=== PATIENT | female | born 1935 | race Caucasian/White ===

== ENCOUNTER 2016-06-18 14:39 | Inpatient (IN) | payer BC, OTHER ==
[~2016-06-18] VITALS: Ht 152.4 cm; Wt 68.1 kg
[~2016-06-18 14:39] MED LIST: ALBUAER2 INH; ALEN70TA4 PO; AMLO-110 PO; ASPCH81X PO; CLIN300C10 PO; FLUT115A INH; GABA-113 PO; LEVO125T7 PO; METF500T PO; METR-162 PO; NAPR-1169 PO; OXYC-57 PO; PRLSR20 PO; SITA100T3 PO
[2016-06-18 16:23] LABS: BASO % 0.4 %; BASO ABS # 0.04 K/uL (0-0.2); COMPLETE YES; EOS % 3.4 %; HEMATOCRIT 39.2 % (37-47); IG% 0.2 %; LYMPH % 16.8 %; LYMPH ABS # 1.85 K/uL (1.2-3.4); MEAN CORPUSCULAR HEMOGLOBIN 32.3 pg (25-34); MEAN CORPUSCULAR HGB CONC 32.9 g/dl (32-36); MEAN PLATELET VOLUME 11.4 fL (7.4-10.4); MONO % 7.2 %; PLATELET COUNT 198 K/uL (130-400); WHITE BLOOD COUNT 10.99 K/uL (4.8-10.8)
--- NOTE | 2016-06-18 16:28 | DIAGNOSTIC IMAGING REPORT ---
CHEST ONE VIEW PORTABLE CLINICAL HISTORY: Altered mental status, weakness. COMPARISON STUDY: 09/18/2012 FINDINGS: The cardiac and mediastinal contours are normal. There is no evidence of focal pulmonary consolidation. There is no evidence of failure. No pleural effusions are visualized.[ IMPRESSION: No active disease in the chest. Electronically signed by: Brett Martínez M.D. 06/18/2016 4:26 PM Dictated Date/Time: 06/18/2016 4:26 PM
[2016-06-18 16:33] LABS: PARTIAL THROMBOPLASTIN RATIO 1.2; PROTHROMBIN TIME (PATIENT) 10.2 SECONDS (9.0-12.0)
--- NOTE | 2016-06-18 17:28 | DIAGNOSTIC IMAGING REPORT ---
ULTRASOUND LEFT VENOUS DOPP LOWER EXT UNILAT CLINICAL HISTORY: leg edema/pain COMPARISON STUDY: No previous studies for comparison. FINDINGS: Real-time and color flow Doppler imaging were performed. Flow was seen within the femoral, popliteal and calf veins with no intraluminal thrombus demonstrated. The saphenous vein is patent. IMPRESSION: No evidence of left lower extremity DVT. Electronically signed by: Brett Martínez M.D. 06/18/2016 5:26 PM Dictated Date/Time: 06/18/2016 5:26 PM
[2016-06-18 17:31] LABS: ALKALINE PHOSPHATASE 97 U/L (45-117); ALT/SGPT 17 U/L (12-78); AST/SGOT 21 U/L (15-37); BLOOD UREA NITROGEN 33 mg/dl (7-18); BUN/CREATININE RATIO 21.8 (10-20); CALCIUM 9.4 mg/dl (8.5-10.1); CARBON DIOXIDE 25 mmol/L (21-32); CHLORIDE 109 mmol/L (98-107); CKMB/CK RATIO 1.9 (0-3.0); GLUCOSE 85 mg/dl (70-99); MAGNESIUM 2.2 mg/dl (1.8-2.4); SODIUM 141 mmol/L (136-145)
[2016-06-18 18:20] LABS: ISTAT CREATININE 1.5 mg/dl (0.6-1.3); ISTAT HEMOGLOBIN 11.2 g/dl (12.0-16.0); ISTAT IONIZED CALCIUM 1.23 mmol/l (1.12-1.32)
[2016-06-18 18:40] LABS: URINE APPEARANCE CLEAR (CLEAR); URINE BILIRUBIN NEG (NEG); URINE COLOR YELLOW; URINE EPITHELIAL CELL AUTO 0-5 /lpf (0-5); URINE NITRITE NEG (NEG); URINE PH 5.5 (4.5-7.5); URINE SPECIFIC GRAVITY 1.013 (1.000-1.030); UROBILINOGEN NEG (NEG); ZZURINE CULT IF INDIC CATH NO
[2016-06-18] MEDS ORDERED: SODIUM POLYST. SULF SUSP 15G/60ML PO STA (18:41)
[2016-06-18] MEDS ORDERED: SODIUM CHLORIDE 0.9% 1000ML 1,000 ML IV STA (18:41)
[2016-06-18 18:43] LABS: MANUAL MICROSCOPIC REQUIRED? NO; REVIEW REQ? NO
--- NOTE | 2016-06-18 18:49 | EMERGENCY ROOM VISIT NOTE ---
History Report prepared by Emeliaibmarcy: Janina Calderon Under the Supervision of: Dr. Chauncey Miranda D.O. First contact with patient: 15:59 Chief Complaint: BACK PAIN Stated Complaint: KIDNEY PAIN,SWELLING,HAVING TROUBLE MOVING History of Present Illness The patient is a 80 year old female who presents to the Emergency Room with complaints of worsening left sided flank pain for the past 3 days. She rates her pain as a 5/10 in severity. She denies any recent injuries to her back. She notes her left leg started swelling yesterday and this morning her left hand started to become swollen. She states she has a history of strokes and also has chronic kidney infections, which can cause swelling in her extremities. The increase in swelling has made it more difficult for her to move around and she states "I can hardly get out of bed in the morning". The patient is not on any medications to reduce swelling because of her history of hypertension. She denies any recent chest pain, shortness of breath or abdominal pain. Source of History: patient Onset: 3 days [employer] Position: back (left sided flank) Symptom Intensity: 5/10 Timing: worsening Associated Symptoms: No SOB, No abdominal pain, No chest pain Review of Systems See HPI for pertinent positives & negatives. A total of 10 systems reviewed and were otherwise negative. 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 (3) CHRONIC OBSTRUCTIVE ASTHMA, NOS (4) DEPRESSIVE DISORDER NEC (5) DIAB HIPOLITO WO COMPL, TYPE II OR UNSPEC TYPE, NOT UNCNTRLD (6) ESOPHAGEAL REFLUX (7) HISTORY OF TOBACCO USE (8) MIXED HYPERLIPIDEMIA (9) PERSONAL HX OF TIA,& CEREBRAL INFARCTION W/OUT RES DEFICITS (10) PURE HYPERCHOLESTEROLEM Social History Smoking Status: Former Smoker Alcohol Use: none Drug Use: none Marital Status: Housing Status: lives alone Occupation Status: retired Current/Historical Medications Scheduled Alendronate Sodium (Fosamax), 70 MG PO WK Amlodipine (Norvasc), 5 MG PO DAILY Aspirin (Aspirin Chewable), 81 MG PO QPM Gabapentin (Neurontin), 300 MG PO HS Levothyroxine (Levothroid), 0.125 MG PO DAILY Metformin Hcl (Glucophage), 500 MG PO BIDM Omeprazole (Prilosec), 20 MG PO QPM Oxycodone/Acetaminophen 5MG/325MG (Percocet 5MG/325MG), 1 TABLET PO Q6HR PRN Sitagliptin Phosphate (Januvia), 100 MG PO DAILY Scheduled PRN Naproxen (Naprosyn), 500 MG PO BID PRN Allergies Coded Allergies: Rosuvastatin (Verified Allergy, Intermediate, GI SYMPTOMS, 06/18/16) Sulfa Drugs (Verified Allergy, Mild, UNKNOWN, 06/18/16) Simvastatin (Verified Adverse Reaction, Unknown, MUSCLE WEAKNESS, 06/18/16) Physical Exam Vital Signs Date Time Temp Pulse Resp B/P Pulse Ox O2 Delivery O2 Flow Rate FiO2 06/18/16 18:18 70 18 149/76 93 Room Air 06/18/16 16:37 68 06/18/16 16:21 66 18 153/122 95 Room Air 06/18/16 14:44 37.1 74 18 173/65 96 Room Air Physical Exam CONSTITUTIONAL/VITAL SIGNS: Reviewed / noted above. GENERAL: Non-toxic in appearance. INTEGUMENTARY: Warm, dry, and [place]. HEAD: Normocephalic. EYES: without scleral icterus or trauma. ENT/OROPHARYNX: clear and moist. LYMPHADENOPATHY/NECK: Is supple without lymphadenopathy or meningismus. RESPIRATORY: Lungs clear and equal. CARDIOVASCULAR: Regular rate and rhythm. GI/ABDOMEN: Soft and nontender. No organomegaly or pulsatile mass. No rebound or guarding. Normal bowel sounds. No rashes. EXTREMITIES: Warm and well perfused. Bilateral LE edema, mild edema to the left digits of the hand. BACK: No CVA tenderness. NEUROLOGICAL: Intact without focal deficits. PSYCHIATRIC: normal affect. MUSCULOSKELETAL: Normally developed with good muscle tone. Medical Decision & Procedures ER Provider Diagnostic Interpretation: This X-Ray was reviewed and interpreted by myself and the radiologist. CHEST ONE VIEW PORTABLE IMPRESSION: No active disease in the chest. Electronically signed by: Brett Martínez M.D. 06/18/2016 4:26 PM This Ultrasound was reviewed and interpreted by the radiologist and reviewed by myself. ULTRASOUND LEFT VENOUS DOPP LOWER EXT UNILAT IMPRESSION: No evidence of left lower extremity DVT. Electronically signed by: Brett Martínez M.D. 06/18/2016 5:26 PM Laboratory Results 06/18/16 16:10 Red Blood Count 4.00, Mean Corpuscular Volume 98.0, Mean Corpuscular Hemoglobin 32.3, Mean Corpuscular Hemoglobin Concent 32.9, Mean Platelet Volume 11.4, Neutrophils (%) (Auto) 72.0, Lymphocytes (%) (Auto) 16.8, Monocytes (%) (Auto) 7.2, Eosinophils (%) (Auto) 3.4, Basophils (%) (Auto) 0.4, Neutrophils # (Auto) 7.92, Lymphocytes # (Auto) 1.85, Monocytes # (Auto) 0.79, Eosinophils # (Auto) 0.37, Basophils # (Auto) 0.04 06/18/16 16:10 Test 06/18/16 16:10 06/18/16 18:09 06/18/16 18:13 White Blood Count 10.99 K/uL (4.8-10.8) Red Blood Count 4.00 M/uL (4.2-5.4) Hemoglobin 12.9 g/dL (12.0-16.0) Hematocrit 39.2 % (37-47) Mean Corpuscular Volume 98.0 fL (80-100) Mean Corpuscular Hemoglobin 32.3 pg (25-34) Mean Corpuscular Hemoglobin Concent 32.9 g/dl (32-36) Platelet Count 198 K/uL (130-400) Mean Platelet Volume 11.4 fL (7.4-10.4) Neutrophils (%) (Auto) 72.0 % Lymphocytes (%) (Auto) 16.8 % Monocytes (%) (Auto) 7.2 % Eosinophils (%) (Auto) 3.4 % Basophils (%) (Auto) 0.4 % Neutrophils # (Auto) 7.92 K/uL (1.4-6.5) Lymphocytes # (Auto) 1.85 K/uL (1.2-3.4) Monocytes # (Auto) 0.79 K/uL (0.11-0.59) Eosinophils # (Auto) 0.37 K/uL (0-0.5) Basophils # (Auto) 0.04 K/uL (0-0.2) RDW Standard Deviation 48.5 fL (36.4-46.3) RDW Coefficient of Variation 13.5 % (11.5-14.5) Immature Granulocyte % (Auto) 0.2 % Immature Granulocyte # (Auto) 0.02 K/uL (0.00-0.02) Prothrombin Time 10.2 SECONDS (9.0-12.0) Prothromb Time International Ratio 1.0 (0.9-1.1) Activated Partial Thromboplast Time 30.4 SECONDS (21.0-31.0) Partial Thromboplastin Ratio 1.2 Est Creatinine Clear Calc Drug Dose 26.6 ml/min Estimated GFR () 38.3 Estimated GFR (Non- 33.0 BUN/Creatinine Ratio 21.8 (10-20) Calcium Level 9.4 mg/dl (8.5-10.1) Magnesium Level 2.2 mg/dl (1.8-2.4) Total Bilirubin 0.5 mg/dl (0.2-1) Direct Bilirubin mg/dl (0-0.2) Aspartate Amino Transf (AST/SGOT) 21 U/L (15-37) Alanine Aminotransferase (ALT/SGPT) 17 U/L (12-78) Alkaline Phosphatase 97 U/L (45-117) Total Creatine Kinase 70 U/L (26-192) Creatine Kinase MB 1.3 ng/ml (0.5-3.6) Creatine Kinase MB Ratio 1.9 (0-3.0) Troponin I < 0.015 ng/ml (0-0.045) Pro-B-Type Natriuretic Peptide 1002 pg/ml (0-1800) Total Protein 8.0 gm/dl (6.4-8.2) Albumin 4.0 gm/dl (3.4-5.0) Lipase 157 U/L (73-393) Urine Color YELLOW Urine Appearance CLEAR (CLEAR) Urine pH 5.5 (4.5-7.5) Urine Specific [place] 1.013 (1.000-1.030) Urine Protein NEG (NEG) Urine Glucose (UA) NEG (NEG) Urine Ketones NEG (NEG) Urine Occult Blood NEG (NEG) Urine Nitrite NEG (NEG) Urine Bilirubin NEG (NEG) Urine Urobilinogen NEG (NEG) Urine Leukocyte Esterase NEG (NEG) Urine WBC (Auto) 1-5 /hpf (0-5) Urine RBC (Auto) 0-4 /hpf (0-4) Urine Hyaline Casts (Auto) 1-5 /lpf (0-5) Urine Epithelial Cells (Auto) 0-5 /lpf (0-5) Urine Bacteria (Auto) NEG (NEG) Bedside Hemoglobin 12.2 g/dl (12.0-16.0) Bedside Hematocrit 36 % (37-47) Bedside Sodium 141 mEq/L (135-144) Bedside Potassium 6.2 mEq/L (3.3-5.0) Bedside Chloride 107 mEq/L (101-112) Bedside Total CO2 24 mEq/l (24-31) Anion Gap 17.0 mmol/L (16-25) Bedside Blood Urea Nitrogen 41 mg/dl (7-18) Bedside Creatinine 1.3 mg/dl (0.6-1.3) Bedside Glucose (other) 82 mg/dl (70-99) Bedside Ionized Calcium (Britney) 1.21 mmol/l (1.12-1.32) Laboratory results as stated above per my review. ECG Indication: back/shoulder pain Rate (beats per minute): 70 Rhythm: normal sinus (normal sinus rhythm) Findings: no acute ischemic change, no ectopy ED Course 1600: Previous medical records were reviewed. The patient was evaluated in room A9. A complete history and physical examination was performed. 175: I reevaluated the patient. She is resting comfortably. 1839: I discussed the patients case with SABRINA Cummings, [facility] Hospitalist. The patient will be further evaluated. 184: Kayexalate Susp 30 gm PO, NSS 1000 ml @ 200 mls/hr IV. 184: I reevaluated the patient. She is still resting. I discussed my plan for her to remain in the hospital for further evaluation and management and she and her family verbalized complete understanding and agreement. Medical Decision Differential includes acute coronary syndrome, myocardial infarction, CVA, TIA, anemia, infection, pneumonia, UTI, pyelonephritis, poor nutrition, dehydration, electrolyte disturbance,hypoglycemia. This is a 80-year-old female is asked to the ED with a chief complaint of lower extremity swelling in the left concerns for her kidneys. The patient also reported some left groin pain earlier today. She is rather nonspecific on her complaints. Her blood pressure was a little elevated on initial exam. Exam of the patient did not reveal any rashes or abdominal tenderness. She does have bilateral lower extremity edema that appears to be mostly symmetrical on my evaluation. Lungs were clear. She is in no distress. Chest x-ray did not show acute disease. CBC is unremarkable. The BUN is 23 and the creatinine is 1.5. Potassium is elevated at 6.0. Troponin is negative. BNP was normal. Ultrasound left lower extremity did not reveal DVT. Urine did not show infection. Repeat i-STAT labs showed a potassium is 6.3. An EKG showed a normal sinus rhythm without significant change with regards to hyperkalemia or ischemia. Because of this, the patient will be seen in the hospital for further evaluation of her potassium levels. She was ordered IV fluids as well as Kayexalate by mouth. She'll be seen by the hospitalist service for further evaluation. Consults Time Called: 1836 Consulting Physician: SABRINA Cummings [facility] Hospitalist Returned Call: [phone] I discussed the patients case with SABRINA Cummings [facility] Hospitalist. The patient will be further evaluated. Impression Primary Impression: Dehydration Additional Impressions: Renal insufficiency Hyperkalemia Scribe Attestation The scribe's documentation has been prepared under my direction and personally reviewed by me in its entirety. I confirm that the note above accurately reflects all work, treatment, procedures, and medical decision making performed by me. Departure Information Dispostion Being Evaluated By Hospitalist Referrals Juanito Shane D.O. (PCP) Patient Instructions [facility] Problem Qualifiers
[2016-06-18] MEDS ORDERED: DEXTROSE 50% 50 ML SYR IV PRN (19:15)
[2016-06-18] MEDS ORDERED: GLUCAGON FOR INJ 1 MG VIAL SQ PRN (19:15)
[2016-06-18] MEDS ORDERED: GLUCOSE 40% GEL 15 GM TUBE PO PRN (19:15)
[2016-06-18] MEDS ORDERED: ACETAMINOPHEN 325 MG TAB PO PRN (19:15)
[2016-06-18] MEDS ORDERED: GLUCOSE 10 TABS/TUBE PO PRN (19:15)
[2016-06-18] MEDS ORDERED: ONDANSETRON INJ 2 MG/ML 2 ML VIAL IV PRN (19:15)
[2016-06-18] MEDS ORDERED: LEVO125T72 PO (19:20)
[2016-06-18] MEDS ORDERED: DEXTROSE 50% 50 ML SYR IV ONE (19:30)
[2016-06-18] MEDS ORDERED: INSULIN HUMAN REGULAR PER UNIT 10 UNITS in SYRINGE 9.9 ML IV STA (19:52)
--- NOTE | 2016-06-18 19:53 | History and Physical ---
History & Physical Date & Time of Service: Jun 18, 2016 at 19:21 Chief Complaint: Left Leg Pain, Weakness Primary Care Physician: Juanito Shane D.O. History of Present Illness 80 year old female who presents to the ER with generalized weakness and left lower leg pain. Patient reports she has felt weak for a while. She reports her leg started hurting a few days ago and has been progressively getting worse. She reports it hurts from the knee down. She is only able to bear minimal weight on the leg. Patient had cellulitis a few years ago and reports a chronic pink discoloration to the left lower leg since then. She also reports it is more swollen than the right. She feels like the swelling is a little bit worse. Patient was seen by her PCP a few weeks ago for a routine visit and had labs that showed worsening renal function and high potassium. She was told to stop any potassium supplements and have the labs redrawn which she did not do. She was then seen again for dysuria and was given Cipro. No urine culture was done. She reports urinary symptoms have improved. Daughter in law is at the bedside who reports she does not feel like she has been drinking alot. Patient also takes Naproxen twice a day. She denies chest pain and shortness of breath. She reports occasional dizziness but denies lightheadedness and syncopal events. No abdominal pain, nausea, or vomiting. She reports she chronically struggles with constipation and diarrhea. She denies fever and chills. In the ER, K+ is found to be 6.0 and creat 1.5. EKG does not show any acute changes. Vitals are stable. She was ordered Kayexalate. Past Medical/Surgical History Medical Problems: (1) CKD (chronic kidney disease), stage III Status: Chronic (2) CVA (cerebral vascular accident) Status: Chronic (3) DM type 2 (diabetes mellitus, type 2) Status: Chronic (4) Dyslipidemia Status: Chronic (5) GERD (gastroesophageal reflux disease) Status: Chronic (6) Hypothyroidism Status: Chronic (7) Neuropathy Status: Chronic (8) Osteoporosis Status: Chronic Surgical Problems: (1) H/O umbilical hernia repair Status: Chronic (2) History of appendectomy Status: Chronic (3) History of cataract surgery Status: Chronic (4) History of cholecystectomy Status: Chronic (5) History of spinal surgery Permanent Comment: x 2 Status: Chronic (6) Status post total hip replacement, left Status: Chronic Family History Stroke FATHER MOTHER Social History Smoking Status: Former Smoker Alcohol Use: none Housing status: lives with family Immunizations History of Influenza Vaccine: Yes Influenza Vaccine Date: May 03, 2016 History of Tetanus Vaccine?: Yes Tetanus Immunization Date: Jul 01, 2014 History of Pneumococcal: Yes Pneumococcal Date: Jul 01, 2014 Multi-Drug Resistant Organisms History of MDRO: No Allergies Coded Allergies: Rosuvastatin (Verified Allergy, Intermediate, GI SYMPTOMS, 06/18/16) Sulfa Antibiotics (Verified Allergy, Unknown, ., 06/18/16) Simvastatin (Verified Adverse Reaction, Unknown, MUSCLE WEAKNESS, 06/18/16) Home Medications Scheduled Alendronate Sodium (Fosamax), 70 MG PO WK Amlodipine (Norvasc), 5 MG PO DAILY Aspirin (Aspirin Chewable), 162 MG PO QPM Gabapentin (Neurontin), 300 MG PO HS Levothyroxine Sodium (Synthroid), 1 TAB PO DAILY Metformin Hcl (Glucophage), 500 MG PO BIDM Naproxen (Naprosyn), 500 MG PO BID Omeprazole (Prilosec), 20 MG PO QPM Oxycodone/Acetaminophen 5MG/325MG (Percocet 5MG/325MG), 1 TABLET PO Q6HR PRN Sitagliptin Phosphate (Januvia), 100 MG PO DAILY Review of Systems 10 point review of systems was completed with the pertinent positives and negatives noted per the HPI Physical Exam Vital Signs Date Time Temp Pulse Resp B/P Pulse Ox O2 Delivery O2 Flow Rate FiO2 06/18/16 18:18 70 18 149/76 93 Room Air 06/18/16 16:37 68 06/18/16 16:21 66 18 153/122 95 Room Air 06/18/16 14:44 37.1 74 18 173/65 96 Room Air General Appearance: no apparent distress Head: atraumatic Eyes: normal inspection ENT: hearing grossly normal Neck: supple, no JVD Respiratory/Chest: lungs clear, normal breath sounds, no respiratory distress Cardiovascular: regular rate, rhythm, normal peripheral pulses, + pertinent finding (+1 edema BLLE, L > R ) Abdomen/GI: normal bowel sounds, non tender, soft Extremities/Musculoskelatal: + pertinent finding (LLE tender to palpation medially, laterally, posteriorly, and anteriorly; palpable pedal pulse; warm to touch) Neurologic/Psych: no motor/sensory deficits, alert, normal mood/affect, oriented x 3 Skin: warm/dry, + pertinent finding (LLE with dry flakey skin, mild pink discoloration) Diagnostics Laboratory Results Results Past 24 Hours Test 06/18/16 16:10 06/18/16 18:07 06/18/16 18:09 06/18/16 18:13 Range/Units White Blood Count 10.99 4.8-10.8 K/uL Red Blood Count 4.00 4.2-5.4 M/uL Hemoglobin 12.9 12.0-16.0 g/dL Hematocrit 39.2 37-47 % Mean Corpuscular Volume 98.0 80-100 fL Mean Corpuscular Hemoglobin 32.3 25-34 pg Mean Corpuscular Hemoglobin Concent 32.9 32-36 g/dl Platelet Count 198 130-400 K/uL Mean Platelet Volume 11.4 7.4-10.4 fL Neutrophils (%) (Auto) 72.0 % Lymphocytes (%) (Auto) 16.8 % Monocytes (%) (Auto) 7.2 % Eosinophils (%) (Auto) 3.4 % Basophils (%) (Auto) 0.4 % Neutrophils # (Auto) 7.92 1.4-6.5 K/uL Lymphocytes # (Auto) 1.85 1.2-3.4 K/uL Monocytes # (Auto) 0.79 0.11-0.59 K/uL Eosinophils # (Auto) 0.37 0-0.5 K/uL Basophils # (Auto) 0.04 0-0.2 K/uL RDW Standard Deviation 48.5 36.4-46.3 fL RDW Coefficient of Variation 13.5 11.5-14.5 % Immature Granulocyte % (Auto) 0.2 % Immature Granulocyte # (Auto) 0.02 0.00-0.02 K/uL Prothrombin Time 10.2 9.0-12.0 SECONDS Prothromb Time International Ratio 1.0 0.9-1.1 Activated Partial Thromboplast Time 30.4 21.0-31.0 SECONDS Partial Thromboplastin Ratio 1.2 Sodium Level 141 136-145 mmol/L Potassium Level 6.0 3.5-5.1 mmol/L Chloride Level 109 98-107 mmol/L Carbon Dioxide Level 25 21-32 mmol/L Anion Gap 7.0 16.0 17.0 16-25 mmol/L Blood Urea Nitrogen 33 7-18 mg/dl Creatinine 1.50 0.60-1.20 mg/dl Est Creatinine Clear Calc Drug Dose 26.6 ml/min Estimated GFR () 38.3 Estimated GFR (Non- 33.0 BUN/Creatinine Ratio 21.8 10-20 Random Glucose 85 70-99 mg/dl Calcium Level 9.4 8.5-10.1 mg/dl Magnesium Level 2.2 1.8-2.4 mg/dl Total Bilirubin 0.5 0.2-1 mg/dl Direct Bilirubin 0-0.2 mg/dl Aspartate Amino Transf (AST/SGOT) 21 15-37 U/L Alanine Aminotransferase (ALT/SGPT) 17 12-78 U/L Alkaline Phosphatase 97 45-117 U/L Total Creatine Kinase 70 26-192 U/L Creatine Kinase MB 1.3 0.5-3.6 ng/ml Creatine Kinase MB Ratio 1.9 0-3.0 Troponin I < 0.015 0-0.045 ng/ml Pro-B-Type Natriuretic Peptide 1002 0-1800 pg/ml Total Protein 8.0 6.4-8.2 gm/dl Albumin 4.0 3.4-5.0 gm/dl Lipase 157 73-393 U/L Bedside Hemoglobin 11.2 12.2 12.0-16.0 g/dl Bedside Hematocrit 33 36 37-47 % Bedside Sodium 141 141 135-144 mEq/L Bedside Potassium 6.3 6.2 3.3-5.0 mEq/L Bedside Chloride 106 107 101-112 mEq/L Bedside Total CO2 26 24 24-31 mEq/l Bedside Blood Urea Nitrogen 43 41 7-18 mg/dl Bedside Creatinine 1.5 1.3 0.6-1.3 mg/dl Bedside Glucose (other) 80 82 70-99 mg/dl Bedside Ionized Calcium (Britney) 1.23 1.21 1.12-1.32 mmol/l Urine Color YELLOW Urine Appearance CLEAR CLEAR Urine pH 5.5 4.5-7.5 Urine Specific [place] 1.013 1.000-1.030 Urine Protein NEG NEG Urine Glucose (UA) NEG NEG Urine Ketones NEG NEG Urine Occult Blood NEG NEG Urine Nitrite NEG NEG Urine Bilirubin NEG NEG Urine Urobilinogen NEG NEG Urine Leukocyte Esterase NEG NEG Urine WBC (Auto) 1-5 0-5 /hpf Urine RBC (Auto) 0-4 0-4 /hpf Urine Hyaline Casts (Auto) 1-5 0-5 /lpf Urine Epithelial Cells (Auto) 0-5 0-5 /lpf Urine Bacteria (Auto) NEG NEG Diagnostic Radiology LLE DOPPLER IMPRESSION: No evidence of left lower extremity DVT. CXR IMPRESSION: No active disease in the chest. Impression Assessment and Plan HYPERKALEMIA, RENAL INSUFFICIENCY - admit to tele - patient presenting with generalized weakness and left lower extremity pain; found to have K+ 6.0, creat 1.5 - patient had labs drawn in the clinic on 05/22 that demonstrated similar results ; prior to has not had labs since 2014 that showed creat 1.1 and K+ 5.1 - ? prerenal due to poor PO intake in combination with chronic Naproxen use - ordered Kayexalate in ED, will also order insulin / D50 - recheck K+ tonight, IVF - renal US LEFT LEG PAIN - etiology unclear - US negative for DVT; no signs of cellulitis; good pulse and leg is warm to touch so do not suspect arterial insufficiency - will check XR - PT/OT HTN - BP controlled - continue Norvasc DM - hgb a1c 4.9 05/2016 - on metformin and Januvia - SSI while hospitalized; due to relatively low a1c and worsening renal function , ? need for continue meds at discharge HYPOTHYROIDISM - normal TSH on recent outpatient labs - continue levothyroxine DVT PROPHYLAXIS - SQ heparin CODE STATUS - Patient is a full code as per my discussion with her. DISPO - In my clinical judgment this beneficiary meets acute admission criteria, established by [facility], that includes being hospitalized through two midnights. I have seen, examined and discussed this patient with Megan Burton and I agree with the above note. Patient presents with generalized weakness and left leg pain. Vitals reviewed. PE: General- awake; alert; NAD Eyes- EOMI; no scleral icterus Neck- no stridor; trachea midline Lungs- CTA bilaterally; no wheezes/crackles Heart- RRR; no m/r/g Abdomen- soft; NTND; nBS Back- no gross abnormalities Extremities- tenderness to palpation of left lower leg (between ankle and knee) ; 1+ edema (slightly more on left than on right); onychomycosis of toenails; 2+ dp pulses Neuro- no focal deficits Skin- slight pink discoloration of left lower leg with dry scaling skin Labs, imaging and EKG reviewed. Hyperkalemia: Likely related to underlying renal dysfunction. Medical management with insulin and Kayexalate. No EKG changes. Renal insufficiency: Unclear level of acuity as last labs to compare are from 2014. Likely related to underlying DM, HTN, NSAID use, Metformin. Gentle hydration with IVF's. Renal ultrasound. LLE pain: Unclear etiology. No e/o cellulitis. Ultrasound negative for DVT. Xray pending. Good pulses, making vascular etiology less likely. Agree with remainder of plan as outlined above. VTE Prophylaxis VTE Risk Assessment Done? Y/N: Yes Risk Level: Moderate
[2016-06-18] MEDS: SODIUM CHLORIDE 0.9% 1000ML 1,000 ML IV SCH (20:44)
[2016-06-18 20:47] VITALS: BP 177/80; PULSE 83; TEMP 36.7; O2SAT 91; Ht 152.4 cm; Wt 68.1 kg
[2016-06-18] MEDS: ASPIRIN 81 MG ECTAB PO SCH (21:01)
[2016-06-18] MEDS: GABAPENTIN 300 MG CAP PO SCH (21:01)
[2016-06-18] MEDS: HEPARIN SOD 5000 UNIT/0.5 ML CARP SQ SCH (21:09)
[2016-06-18] MEDS: INSULIN ASPART 100 UNITS/ML 3 ML PEN SC SCH (21:17)
[2016-06-18] MEDS: OXYCODONE/ACETAMINOPHEN 5-325 TAB PO PRN (21:48)
--- NOTE | 2016-06-18 22:36 | DIAGNOSTIC IMAGING REPORT ---
LEFT TIBIA/FIBULA 2 VIEWS ROUTINE CLINICAL HISTORY: left leg pain SWELLING COMPARISON: None. DISCUSSION: No fractures or dislocations are visualized. There are vascular calcifications present. There is soft tissue edema. No destructive lesions are evident. IMPRESSION: Soft tissue edema. No fractures or destructive lesions are visualized. The bones are osteopenic. Electronically signed by: Brett Martínez M.D. 06/18/2016 10:34 PM Dictated Date/Time: 06/18/2016 10:33 PM
[2016-06-19] VITALS (8 sets, daily range): BP systolic 134–191; BP diastolic 47–82; PULSE 72–82; TEMP 36.6–36.8; O2SAT 91–95
[2016-06-19] MEDS: LEVOTHYROXINE 125 MCG TAB PO SCH (06:14)
--- NOTE | 2016-06-19 06:54 | DIAGNOSTIC IMAGING REPORT ---
RENAL ULTRASOUND HISTORY: Renal insufficiency RUBIO COMPARISON: None. FINDINGS: Right kidney: Maximum dimension 8.5 cm. No evidence for hydronephrosis. A 1 cm upper pole cyst. Normal corticomedullary differentiation and cortical thickness. Left kidney: Left kidney poorly seen due to overlying bowel content. Bladder: No bladder wall thickening. The bilateral ureteral jets were identified. IMPRESSION: Negative right kidney. Small upper pole cyst. Poor visibility left kidney due to overlying bowel content Electronically signed by: Wally Alatorre M.D. 06/19/2016 6:53 AM Dictated Date/Time: 06/19/2016 6:51 AM
[2016-06-19 07:21] LABS: HEMATOCRIT 33.2 % (37-47); MEAN CELL VOLUME 97.9 fL (80-100); MEAN CORPUSCULAR HEMOGLOBIN 31.6 pg (25-34); MEAN CORPUSCULAR HGB CONC 32.2 g/dl (32-36); MEAN PLATELET VOLUME 11.4 fL (7.4-10.4); PLATELET COUNT 167 K/uL (130-400); RED BLOOD COUNT 3.39 M/uL (4.2-5.4); WHITE BLOOD COUNT 8.01 K/uL (4.8-10.8)
[2016-06-19 07:59] LABS: BUN/CREATININE RATIO 22.6 (10-20); CALCIUM 8.6 mg/dl (8.5-10.1); CREATININE 1.2 mg/dl (0.60-1.20); POTASSIUM 4.8 mmol/L (3.5-5.1)
[2016-06-19] MEDS: AMLODIPINE BESYLATE 5 MG TAB PO SCH (08:31)
[2016-06-19] MEDS: SODIUM CHLORIDE 0.9% 1000ML 1,000 ML IV SCH (08:32)
[2016-06-19] MEDS: PANTOprazole SOD 40 MG TAB PO SCH (08:32)
[2016-06-19] MEDS: INSULIN ASPART 100 UNITS/ML 3 ML PEN SC SCH ×4 (08:37→21:35)
[2016-06-19] MEDS: HEPARIN SOD 5000 UNIT/0.5 ML CARP SQ SCH ×2 (08:39→21:42)
--- NOTE | 2016-06-19 10:14 | Progress Note ---
Internal Med Progress Note Date of Service: Jun 19, 2016. Provider Documentation: SUBJECTIVE: Patient is c/o lower leg pain, specifically groin pain. Denies any radiation though, but feels numbness in left leg and has difficulty walking with it. Says it is because of pain, but unable to give specific details. Symptoms have been progressively worsening x few weeks. OBJECTIVE: Vital Signs-as noted below Exam: General Appearance: no apparent distress Neck: supple, no JVD Respiratory/Chest: lungs clear, normal breath sounds, no respiratory distress Cardiovascular: regular rate, rhythm, normal peripheral pulses, + pertinent finding ( +1 edema BLLE, Lt > Rt ) Extremities/Musculoskelatal: + pertinent finding (LLE tender to palpation medially, laterally, posteriorly, and anteriorly; palpable pedal pulse; warm to touch, tender to touch) Neurologic/Psych: no motor/sensory deficits, alert, normal mood/affect, oriented x 3 Skin: warm/dry, + pertinent finding (LLE with dry flakey skin, mild pink discoloration) Lab data as noted below. ASSESSMENT & PLAN: HYPERKALEMIA ALESSIA VS ACUTE ON CKD-IV-V Patient presented with generalized weakness and left lower extremity pain; found to have K+ 6.0, creat 1.5 . Patient had labs drawn in the clinic on 05/22 that demonstrated similar results; prior to has not had labs since 2014 that showed creat 1.1 and K+ 5.1 - ? prerenal due to poor PO intake in combination with chronic Naproxen use with hx of HTN, DM - S/P Kayexalate in ED, Insulin / D50/ IVF - Renal US - normal LEFT LEG PAIN - Could be radicular pain from back with hx of chronic low back pain and x 2 surgeries associated with progressively worsening symptoms. - LLE- mild redness, tender to touch, X ray - soft tissue edema, so will empirically treat with doxycycline for possible infectious component- possible cellulitis - Work up- US negative for DVT, Tibia/Fibula x ray- soft tissue edema, no fractures. - Will order lumbar x ray - PT/OT HTN - BP controlled - continue Norvas DM - Hgb a1c 4.9 05/2016 - on metformin and Januvia - SSI while hospitalized; due to relatively low a1c and worsening renal function , ? need for continue meds at discharge HYPOTHYROIDISM - normal TSH on recent outpatient labs - continue levothyroxine DVT PROPHYLAXIS - SQ heparin CODE STATUS - Patient is a full code as per my discussion with her. DISPO - PT/OT ordered - To be determined Vital Signs: Date Time Temp Pulse Resp B/P Pulse Ox O2 Delivery O2 Flow Rate FiO2 06/19/16 08:07 36.6 72 20 139/77 91 Room Air 06/19/16 08:00 Room Air 06/19/16 05:27 145/76 06/19/16 03:50 Room Air 06/19/16 03:45 36.7 80 20 174/79 95 Room Air 06/19/16 00:26 36.7 74 18 158/82 91 Room Air 06/19/16 00:00 Room Air 06/18/16 20:47 36.7 83 16 177/80 91 Room Air 06/18/16 19:54 75 13 155/87 93 06/18/16 18:18 70 18 149/76 93 Room Air 06/18/16 16:37 68 06/18/16 16:21 66 18 153/122 95 Room Air 06/18/16 14:44 37.1 74 18 173/65 96 Room Air Lab Results: Results Past 24 Hours Test 06/18/16 16:10 06/18/16 18:07 06/18/16 18:09 06/18/16 21:04 Range/Units White Blood Count 10.99 4.8-10.8 K/uL Red Blood Count 4.00 4.2-5.4 M/uL Hemoglobin 12.9 12.0-16.0 g/dL Hematocrit 39.2 37-47 % Mean Corpuscular Volume 98.0 80-100 fL Mean Corpuscular Hemoglobin 32.3 25-34 pg Mean Corpuscular Hemoglobin Concent 32.9 32-36 g/dl Platelet Count 198 130-400 K/uL Mean Platelet Volume 11.4 7.4-10.4 fL Neutrophils (%) (Auto) 72.0 % Lymphocytes (%) (Auto) 16.8 % Monocytes (%) (Auto) 7.2 % Eosinophils (%) (Auto) 3.4 % Basophils (%) (Auto) 0.4 % Neutrophils # (Auto) 7.92 1.4-6.5 K/uL Lymphocytes # (Auto) 1.85 1.2-3.4 K/uL Monocytes # (Auto) 0.79 0.11-0.59 K/uL Eosinophils # (Auto) 0.37 0-0.5 K/uL Basophils # (Auto) 0.04 0-0.2 K/uL RDW Standard Deviation 48.5 36.4-46.3 fL RDW Coefficient of Variation 13.5 11.5-14.5 % Immature Granulocyte % (Auto) 0.2 % Immature Granulocyte # (Auto) 0.02 0.00-0.02 K/uL Prothrombin Time 10.2 9.0-12.0 SECONDS Prothromb Time International Ratio 1.0 0.9-1.1 Activated Partial Thromboplast Time 30.4 21.0-31.0 SECONDS Partial Thromboplastin Ratio 1.2 Sodium Level 141 136-145 mmol/L Potassium Level 6.0 3.5-5.1 mmol/L Chloride Level 109 98-107 mmol/L Carbon Dioxide Level 25 21-32 mmol/L Anion Gap 7.0 16.0 16-25 mmol/L Blood Urea Nitrogen 33 7-18 mg/dl Creatinine 1.50 0.60-1.20 mg/dl Est Creatinine Clear Calc Drug Dose 26.6 ml/min Estimated GFR () 38.3 Estimated GFR (Non- 33.0 BUN/Creatinine Ratio 21.8 10-20 Random Glucose 85 70-99 mg/dl Calcium Level 9.4 8.5-10.1 mg/dl Magnesium Level 2.2 1.8-2.4 mg/dl Total Bilirubin 0.5 0.2-1 mg/dl Direct Bilirubin 0-0.2 mg/dl Aspartate Amino Transf (AST/SGOT) 21 15-37 U/L Alanine Aminotransferase (ALT/SGPT) 17 12-78 U/L Alkaline Phosphatase 97 45-117 U/L Total Creatine Kinase 70 26-192 U/L Creatine Kinase MB 1.3 0.5-3.6 ng/ml Creatine Kinase MB Ratio 1.9 0-3.0 Troponin I < 0.015 0-0.045 ng/ml Pro-B-Type Natriuretic Peptide 1002 0-1800 pg/ml Total Protein 8.0 6.4-8.2 gm/dl Albumin 4.0 3.4-5.0 gm/dl Lipase 157 73-393 U/L Bedside Hemoglobin 11.2 12.0-16.0 g/dl Bedside Hematocrit 33 37-47 % Bedside Sodium 141 135-144 mEq/L Bedside Potassium 6.3 3.3-5.0 mEq/L Bedside Chloride 106 101-112 mEq/L Bedside Total CO2 26 24-31 mEq/l Bedside Blood Urea Nitrogen 43 7-18 mg/dl Bedside Creatinine 1.5 0.6-1.3 mg/dl Bedside Glucose (other) 80 70-99 mg/dl Bedside Ionized Calcium (Britney) 1.23 1.12-1.32 mmol/l Urine Color YELLOW Urine Appearance CLEAR CLEAR Urine pH 5.5 4.5-7.5 Urine Specific Paicines 1.013 1.000-1.030 Urine Protein NEG NEG Urine Glucose (UA) NEG NEG Urine Ketones NEG NEG Urine Occult Blood NEG NEG Urine Nitrite NEG NEG Urine Bilirubin NEG NEG Urine Urobilinogen NEG NEG Urine Leukocyte Esterase NEG NEG Urine WBC (Auto) 1-5 0-5 /hpf Urine RBC (Auto) 0-4 0-4 /hpf Urine Hyaline Casts (Auto) 1-5 0-5 /lpf Urine Epithelial Cells (Auto) 0-5 0-5 /lpf Urine Bacteria (Auto) NEG NEG Bedside Glucose 202 70-90 mg/dl Test 06/18/16 21:05 06/19/16 06:15 06/19/16 07:44 Range/Units Potassium Level 4.8 4.8 3.5-5.1 mmol/L White Blood Count 8.01 4.8-10.8 K/uL Red Blood Count 3.39 4.2-5.4 M/uL Hemoglobin 10.7 12.0-16.0 g/dL Hematocrit 33.2 37-47 % Mean Corpuscular Volume 97.9 80-100 fL Mean Corpuscular Hemoglobin 31.6 25-34 pg Mean Corpuscular Hemoglobin Concent 32.2 32-36 g/dl RDW Standard Deviation 49.2 36.4-46.3 fL RDW Coefficient of Variation 13.7 11.5-14.5 % Platelet Count 167 130-400 K/uL Mean Platelet Volume 11.4 7.4-10.4 fL Sodium Level 145 136-145 mmol/L Chloride Level 113 98-107 mmol/L Carbon Dioxide Level 23 21-32 mmol/L Anion Gap 9.0 3-11 mmol/L Blood Urea Nitrogen 27 7-18 mg/dl Creatinine 1.20 0.60-1.20 mg/dl Est Creatinine Clear Calc Drug Dose 33.4 ml/min Estimated GFR () 50.1 Estimated GFR (Non- 43.3 BUN/Creatinine Ratio 22.6 10-20 Random Glucose 80 70-99 mg/dl Calcium Level 8.6 8.5-10.1 mg/dl Bedside Glucose 83 70-90 mg/dl
--- NOTE | 2016-06-19 12:01 | DIAGNOSTIC IMAGING REPORT ---
LUMBAR SPINE 2 OR 3 VIEWS CLINICAL HISTORY: Left leg pain-radicular ? hx of back surgeries pain. Radiculopathy. COMPARISON STUDY: 09/27/2006 FINDINGS: Scoliosis. Lumbar laminectomy and fusion at L4-L5 and S1. Considerable degenerative disc change throughout considered slightly progressive from the prior study. Slightly progressive sclerosis of the vertebral endplates. No compression deformity. IMPRESSION: 1. Mildly progressive degenerative disc change as compared to the prior study.. 2. Stable postoperative changes consistent with laminectomy and fusion from L4 through S1 3. Scoliosis. Progressive from the prior exam Electronically signed by: Wally Alatorre M.D. 06/19/2016 12:00 PM Dictated Date/Time: 06/19/2016 11:58 AM
[2016-06-19] MEDS: OXYCODONE/ACETAMINOPHEN 5-325 TAB PO PRN (12:47)
[2016-06-19] MEDS ORDERED: NURSING VERBAL MED ORDER ONE (19:15)
[2016-06-19] MEDS ORDERED: LORAZEPAM INJ 1 MG in SYRINGE 0.5 ML IV PRN (19:30)
[2016-06-19] MEDS: ASPIRIN 81 MG ECTAB PO SCH (21:35)
[2016-06-19] MEDS: GABAPENTIN 300 MG CAP PO SCH (21:35)
[2016-06-19] MEDS: DOXYCYCLINE HYCLATE 100 MG CAP PO SCH (21:36)
[2016-06-20] VITALS (8 sets, daily range): BP systolic 119–182; BP diastolic 61–80; PULSE 65–76; TEMP 36.6–36.9; O2SAT 92–95
[2016-06-20] MEDS: LEVOTHYROXINE 125 MCG TAB PO SCH (06:50)
[2016-06-20] MEDS: AMLODIPINE BESYLATE 5 MG TAB PO SCH (08:41)
[2016-06-20] MEDS: DOXYCYCLINE HYCLATE 100 MG CAP PO SCH ×2 (08:42→21:14)
[2016-06-20] MEDS: INSULIN ASPART 100 UNITS/ML 3 ML PEN SC SCH ×4 (08:45→21:00)
[2016-06-20] MEDS: HEPARIN SOD 5000 UNIT/0.5 ML CARP SQ SCH ×2 (08:49→21:18)
[2016-06-20] MEDS: PANTOprazole SOD 40 MG TAB PO SCH (09:15)
--- NOTE | 2016-06-20 12:21 | Progress Note ---
Internal Med Progress Note Date of Service: Jun 20, 2016. Provider Documentation: SUBJECTIVE : Patient is doing much better today. Left lower leg pain has improved, able to get out of bed to chair. No localized weakness, numbness today. No bowel/bladder incontinence OBJECTIVE: Vital Signs-as noted below Exam: General Appearance: no apparent distress Neck: supple, no JVD Respiratory/Chest: lungs clear, normal breath sounds, no respiratory distress Cardiovascular: regular rate, rhythm, normal peripheral pulses, + pertinent finding ( +1 edema BLLE, Lt > Rt ) Extremities/Musculoskelatal: + pertinent finding (LLE tender to palpation medially, laterally, posteriorly, and anteriorly; palpable pedal pulse; warm to touch, tender to touch) Neurologic/Psych: no motor/sensory deficits, alert, normal mood/affect, oriented x 3 Skin: warm/dry, + pertinent finding (LLE with dry flakey skin, mild pink discoloration) Lab data as noted below. ASSESSMENT & PLAN: HYPERKALEMIA ALESSIA ON CKD-III- Resolved Patient presented with generalized weakness and left lower extremity pain; found to have K+ 6.0, creat 1.5 . Patient had labs drawn in the clinic on 05/22 that demonstrated similar results; prior to has not had labs since 2014 that showed creat 1.1 and K+ 5.1 - ? prerenal due to poor PO intake in combination with chronic Naproxen use with hx of HTN, DM - S/P Kayexalate in ED, Insulin / D50/ IVF - Renal US - normal LEFT LEG PAIN - Probably sciatica as improved by itself. Could be radicular pain from back with hx of chronic low back pain and x 2 surgeries associated with progressively worsening symptoms. - LLE- mild redness, tender to touch, X ray - soft tissue edema, so empirically started with doxycycline (day 2) for possible infectious component- possible cellulitis and responding as pain has improved. - Work up- US negative for DVT, Tibia/Fibula x ray- soft tissue edema, no fractures. - Lumbar X ray/MRI ordered- follow up results - PT/OT HTN - BP controlled - continue Norvas DM - Hgb a1c 4.9 05/2016 - on metformin and Januvia - SSI while hospitalized; due to relatively low a1c and worsening renal function , ? need for continue meds at discharge HYPOTHYROIDISM - normal TSH on recent outpatient labs - continue levothyroxine DVT PROPHYLAXIS - SQ heparin CODE STATUS - Patient is a full code as per my discussion with her. DISPO - PT/OT ordered- awaiting report - To be determined Discussed with son by bedside, updated Vital Signs: Date Time Temp Pulse Resp B/P Pulse Ox O2 Delivery O2 Flow Rate FiO2 06/20/16 11:26 36.7 67 18 182/74 94 Room Air 06/20/16 07:55 Room Air 06/20/16 07:29 36.7 65 18 148/80 92 Room Air 06/20/16 04:09 36.8 76 20 150/67 93 Room Air 06/20/16 04:05 Room Air 06/20/16 00:05 Room Air 06/19/16 23:47 36.8 74 18 134/82 93 Room Air 06/19/16 20:00 Room Air 06/19/16 19:54 36.6 79 16 191/47 92 Room Air 06/19/16 16:06 36.8 78 16 158/51 91 Room Air 06/19/16 16:00 Room Air 06/19/16 13:42 Room Air 06/19/16 12:42 36.8 82 17 173/81 94 Room Air Lab Results: Results Past 24 Hours Test 06/19/16 16:03 06/19/16 21:25 06/20/16 07:42 06/20/16 09:55 Range/Units Bedside Glucose 107 117 97 70-90 mg/dl Test 06/20/16 11:41 Range/Units Bedside Glucose 93 70-90 mg/dl
--- NOTE | 2016-06-20 13:19 | DIAGNOSTIC IMAGING REPORT ---
LUMBAR SPINE MRI HISTORY: Left leg weakness. Rule out nerve compression TECHNIQUE: Multiplanar multisequence MRI of the lumbar spine was performed without the use of contrast. COMPARISON: Lumbar spine 09/27/2006. FINDINGS: For the purpose of the report the L5-S1 disc space will be located on axial image 30 of 36. Moderate distal scoliosis. Severe disc space narrowing within the lower thoracic spine. Moderate disc space narrowing L1-L2. Severe disc space narrowing at L2-L3 and L3-L4 4. There is posterior decompression and fusion from L4 through S1 with pedicle screws and rods. Endplate osteophytes seen throughout the lumbar spine. No acute fracture or subluxation. The conus terminates at the T12-L1 disc space level. 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 L1-L2: Broad-based posterior disc bulge resulting in minimal central canal narrowing. No significant neural foraminal narrowing. L2-L3: Broad-based posterior disc bulge asymmetric to the left. There is also asymmetric left facet hypertrophy. This is due to the scoliosis. This results in mild left-sided central canal narrowing with the hypertrophied facets abut the cauda equina and moderate left-sided neural foraminal narrowing. The left asymmetric disc bulge appears to abut the transiting left L3 nerve root. L3-L4: Small broad-based posterior disc bulge with mild to moderate central canal narrowing due to the scoliosis and significant right facet hypertrophy. There is severe bilateral neural foraminal narrowing due to the disc bulge and bilateral facet hypertrophy. L4-L5: No significant central canal narrowing due to the posterior decompression. Moderate right neural foraminal narrowing due to the facet hypertrophy. L5-S1: No significant central canal narrowing due to the posterior decompression. No significant neural foraminal narrowing. IMPRESSION: 1. Multilevel lumbar spondylosis as described above most pronounced at the L2-3 and L3-L4 levels. This is primarily due to the moderate dextroscoliosis and facet hypertrophy. 2. Posterior decompression and fusion from L4 through S1. 3. 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 Electronically signed by: Willy Murillo M.D. 06/20/2016 1:18 PM Dictated Date/Time: 06/19/2016 9:33 PM
[2016-06-20] MEDS: ASPIRIN 81 MG ECTAB PO SCH (21:13)
[2016-06-20] MEDS: GABAPENTIN 300 MG CAP PO SCH (21:13)
[2016-06-20] MEDS: OXYCODONE/ACETAMINOPHEN 5-325 TAB PO PRN (23:47)
[2016-06-21 04:19] VITALS: BP 136/72; PULSE 68; TEMP 36.7; O2SAT 95
[2016-06-21] MEDS: LEVOTHYROXINE 125 MCG TAB PO SCH (06:19)
[2016-06-21 07:06] LABS: HEMATOCRIT 32.7 % (37-47); MEAN CELL VOLUME 94.5 fL (80-100); MEAN CORPUSCULAR HEMOGLOBIN 30.6 pg (25-34); MEAN CORPUSCULAR HGB CONC 32.4 g/dl (32-36); PLATELET COUNT 168 K/uL (130-400); RED BLOOD COUNT 3.46 M/uL (4.2-5.4); WHITE BLOOD COUNT 8.08 K/uL (4.8-10.8)
[2016-06-21 07:49] LABS: BUN/CREATININE RATIO 19.6 (10-20); CALCIUM 8.7 mg/dl (8.5-10.1); CREATININE 1.6 mg/dl (0.60-1.20); POTASSIUM 3.8 mmol/L (3.5-5.1)
[2016-06-21 08:00] VITALS: BP 131/71; PULSE 60; TEMP 36.9; O2SAT 91
[2016-06-21] MEDS: AMLODIPINE BESYLATE 5 MG TAB PO SCH (08:44)
[2016-06-21] MEDS: PANTOprazole SOD 40 MG TAB PO SCH (08:45)
[2016-06-21] MEDS: DOXYCYCLINE HYCLATE 100 MG CAP PO SCH ×2 (08:45→21:25)
[2016-06-21] MEDS: INSULIN ASPART 100 UNITS/ML 3 ML PEN SC SCH ×4 (08:54→21:00)
[2016-06-21] MEDS: HEPARIN SOD 5000 UNIT/0.5 ML CARP SQ SCH ×2 (08:54→22:05)
[2016-06-21] MEDS: SODIUM CHLORIDE 0.9% 1000ML 1,000 ML IV SCH ×2 (09:06→22:06)
--- NOTE | 2016-06-21 10:00 | Progress Note ---
Internal Med Progress Note Date of Service: Jun 21, 2016. Provider Documentation: SUBJECTIVE : Patient is doing much better today. Left lower leg pain has improved, able to get out of bed to chair and feels like she is back to her baseline No localized weakness, numbness today. No bowel/bladder incontinence Did better with PT/OT OBJECTIVE: Vital Signs-as noted below Exam: General Appearance: no apparent distress Neck: supple, no JVD Respiratory/Chest: lungs clear, normal breath sounds, no respiratory distress Cardiovascular: regular rate, rhythm, normal peripheral pulses, + pertinent finding ( +1 edema BLLE, Lt > Rt ) Extremities/Musculoskelatal: + pertinent finding (LLE tender to palpation medially, laterally, posteriorly, and anteriorly; palpable pedal pulse; warm to touch, tender to touch) Neurologic/Psych: no motor/sensory deficits, alert, normal mood/affect, oriented x 3 Skin: warm/dry, + pertinent finding (LLE with dry flakey skin, mild pink discoloration) Lab data as noted below. ASSESSMENT & PLAN: HYPERKALEMIA- Resolved ALESSIA VS ALESSIA ON CKD-III- Worse today Patient presented with generalized weakness and left lower extremity pain; found to have K+ 6.0, creat 1.5 . Patient had labs drawn in the clinic on 05/22 that demonstrated similar results; prior to has not had labs since 2014 that showed creat 1.1 and K+ 5.1 - ? prerenal due to poor PO intake in combination with chronic Naproxen use with hx of HTN, DM - IV fluids started today . - S/P Kayexalate in ED, Insulin / D50/ IVF - Renal US - normal LEFT LEG PAIN - Probably sciatica as improved by itself. Could be radicular pain from back with hx of chronic low back pain and x 2 surgeries associated with progressively worsening symptoms. - LLE- mild redness, tender to touch, X ray - soft tissue edema, so empirically started with doxycycline (day 2) for possible infectious component- possible cellulitis and responding as pain has improved. - Work up- US negative for DVT, Tibia/Fibula x ray- soft tissue edema, no fractures. - Lumbar X ray/MRI ordered- 1. Multilevel lumbar spondylosis as described above most pronounced at the L2-3 and L3-L4 levels. This is primarily due to the moderate dextroscoliosis and facet hypertrophy. 2. Posterior decompression and fusion from L4 through S1. 3. 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 need for continue meds at discharge HYPOTHYROIDISM - normal TSH on recent outpatient labs - continue levothyroxine DVT PROPHYLAXIS - SQ heparin CODE STATUS - Patient is a full code as per my discussion with her. DISPO - PT/OT ordered- Recommends Home with [facility]. -Likely discharge in AM once creatinine improves Discussed with son by bedside on 06/20/16 Vital Signs: Date Time Temp Pulse Resp B/P Pulse Ox O2 Delivery O2 Flow Rate FiO2 06/21/16 08:00 Room Air 06/21/16 08:00 36.9 60 20 131/71 91 Room Air 06/21/16 04:19 36.7 68 20 136/72 95 Room Air 06/21/16 04:00 Room Air 06/21/16 00:00 Room Air 06/20/16 23:25 36.8 72 18 129/72 94 Room Air 06/20/16 20:00 95 Room Air 06/20/16 19:44 36.9 71 20 141/66 95 Room Air 06/20/16 16:00 94 Room Air 06/20/16 15:12 36.6 65 18 119/61 94 Room Air 06/20/16 12:00 Room Air 06/20/16 11:26 36.7 67 18 182/74 94 Room Air Lab Results: Results Past 24 Hours Test 06/20/16 11:41 06/20/16 16:33 06/20/16 20:01 06/21/16 06:12 Range/Units Bedside Glucose 93 109 116 70-90 mg/dl White Blood Count 8.08 4.8-10.8 K/uL Red Blood Count 3.46 4.2-5.4 M/uL Hemoglobin 10.6 12.0-16.0 g/dL Hematocrit 32.7 37-47 % Mean Corpuscular Volume 94.5 80-100 fL Mean Corpuscular Hemoglobin 30.6 25-34 pg Mean Corpuscular Hemoglobin Concent 32.4 32-36 g/dl RDW Standard Deviation 46.3 36.4-46.3 fL RDW Coefficient of Variation 13.3 11.5-14.5 % Platelet Count 168 130-400 K/uL Mean Platelet Volume 11.0 7.4-10.4 fL Sodium Level 144 136-145 mmol/L Potassium Level 3.8 3.5-5.1 mmol/L Chloride Level 109 98-107 mmol/L Carbon Dioxide Level 27 21-32 mmol/L Anion Gap 8.0 3-11 mmol/L Blood Urea Nitrogen 31 7-18 mg/dl Creatinine 1.60 0.60-1.20 mg/dl Est Creatinine Clear Calc Drug Dose 24.7 ml/min Estimated GFR () 35.4 Estimated GFR (Non- 30.5 BUN/Creatinine Ratio 19.6 10-20 Random Glucose 115 70-99 mg/dl Calcium Level 8.7 8.5-10.1 mg/dl Test 06/21/16 07:32 Range/Units Bedside Glucose 96 70-90 mg/dl
[2016-06-21] MEDS: OXYCODONE/ACETAMINOPHEN 5-325 TAB PO PRN ×2 (10:05→21:29)
[2016-06-21 11:07] VITALS: BP 163/78; PULSE 71; TEMP 36.7; O2SAT 96
[2016-06-21 15:49] VITALS: BP 143/68; PULSE 65; TEMP 36.7; O2SAT 93
[2016-06-21 19:44] VITALS: BP_SYST 148; BP_SYST 177; BP_DIAS 84; PULSE 70; TEMP 36.4; O2SAT 96
[2016-06-21] MEDS: GABAPENTIN 300 MG CAP PO SCH (21:25)
[2016-06-21] MEDS: ASPIRIN 81 MG ECTAB PO SCH (21:26)
[2016-06-21 23:35] VITALS: BP 158/72; PULSE 69; TEMP 36.6; O2SAT 93
[2016-06-22 04:26] VITALS: BP 127/60; PULSE 64; TEMP 36.3; O2SAT 91
[2016-06-22] MEDS: LEVOTHYROXINE 125 MCG TAB PO SCH (05:41)
[2016-06-22 06:35] LABS: BUN/CREATININE RATIO 24.1 (10-20); CALCIUM 8.5 mg/dl (8.5-10.1); CREATININE 1.4 mg/dl (0.60-1.20); POTASSIUM 3.7 mmol/L (3.5-5.1)
[2016-06-22 07:22] VITALS: BP 153/75; PULSE 63; TEMP 36.5; O2SAT 94
[2016-06-22] MEDS: AMLODIPINE BESYLATE 5 MG TAB PO SCH (08:06)
[2016-06-22] MEDS: PANTOprazole SOD 40 MG TAB PO SCH (08:06)
[2016-06-22] MEDS: INSULIN ASPART 100 UNITS/ML 3 ML PEN SC SCH ×2 (08:06→12:06)
[2016-06-22] MEDS: DOXYCYCLINE HYCLATE 100 MG CAP PO SCH (08:06)
[2016-06-22] MEDS: HEPARIN SOD 5000 UNIT/0.5 ML CARP SQ SCH (08:12)
[2016-06-22] MEDS ORDERED: DXY100 PO (09:28)
[2016-06-22] MEDS ORDERED: SITA100T3 PO (09:28)
--- NOTE | 2016-06-22 09:30 | Progress Note ---
Internal Med Progress Note Date of Service: Jun 22, 2016. Provider Documentation: SUBJECTIVE : Patient is doing much better today and eager to be discharged Left lower leg pain has improved, able to get out of bed to chair and feels like she is back to her baseline No localized weakness, numbness today. No bowel/bladder incontinence Did better with PT/OT OBJECTIVE: Vital Signs-as noted below Exam: General Appearance: no apparent distress Neck: supple, no JVD Respiratory/Chest: lungs clear, normal breath sounds, no respiratory distress Cardiovascular: regular rate, rhythm, normal peripheral pulses, + pertinent finding ( +1 edema BLLE, Lt > Rt ) Extremities/Musculoskelatal: Trace edema, mild tenderness with no erythema Neurologic/Psych: no motor/sensory deficits, alert, normal mood/affect, oriented x 3 Skin: warm/dry, + pertinent finding (LLE with dry flakey skin, mild pink discoloration) Lab data as noted below. ASSESSMENT & PLAN: HYPERKALEMIA- Resolved ALESSIA VS ALESSIA ON CKD-III- Improved, near her baseline Patient presented with generalized weakness and left lower extremity pain; found to have K+ 6.0, creat 1.5 . Patient had labs drawn in the clinic on 05/22 that demonstrated similar results; prior to has not had labs since 2014 that showed creat 1.1 and K+ 5.1 -Likely this is her baseline 1.4-.1.5 - ? prerenal due to poor PO intake in combination with chronic Naproxen use with hx of HTN, DM - S/P IVF. Discontinued Metformin, Reduced dose of Januvia to 50 mg per cr clearance - S/P Kayexalate in ED, Insulin / D50/ IVF - Renal US - normal LEFT LEG PAIN - Probably sciatica as improved by itself. Could be radicular pain from back with hx of chronic low back pain and x 2 surgeries associated with progressively worsening symptoms. - LLE- mild redness, tender to touch, X ray - soft tissue edema, so empirically started with doxycycline (day 2) for possible infectious component- possible cellulitis and responding as pain has improved. - Work up- US negative for DVT, Tibia/Fibula x ray- soft tissue edema, no fractures. - Lumbar X ray/MRI ordered- 1. Multilevel lumbar spondylosis as described above most pronounced at the L2-3 and L3-L4 levels. This is primarily due to the moderate dextroscoliosis and facet hypertrophy. 2. Posterior decompression and fusion from L4 through S1. 3. 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 DISPO - PT/OT ordered- Recommends Home with [facility]. - Ok to discharge home today Discussed with son by bedside on 06/20/16 Vital Signs: Date Time Temp Pulse Resp B/P Pulse Ox O2 Delivery O2 Flow Rate FiO2 06/22/16 09:15 36.5 63 18 94 Room Air 06/22/16 07:45 Room Air 94.0 06/22/16 07:22 36.5 63 18 153/75 94 Room Air 06/22/16 04:26 36.3 64 18 127/60 91 Room Air 06/22/16 04:00 Room Air 06/22/16 00:00 Room Air 06/21/16 23:35 36.6 69 20 158/72 93 Room Air 06/21/16 20:00 Room Air 96.0 06/21/16 19:44 36.4 70 16 177/84 96 148/84 06/21/16 16:00 Room Air 94.0 06/21/16 15:49 36.7 65 18 143/68 93 Room Air 06/21/16 12:00 Room Air 06/21/16 11:07 36.7 71 18 163/78 96 Room Air Lab Results: Results Past 24 Hours Test 06/21/16 11:14 06/21/16 16:14 06/21/16 20:16 06/22/16 05:41 Range/Units Bedside Glucose 141 97 129 70-90 mg/dl Sodium Level 145 136-145 mmol/L Potassium Level 3.7 3.5-5.1 mmol/L Chloride Level 110 98-107 mmol/L Carbon Dioxide Level 26 21-32 mmol/L Anion Gap 9.0 3-11 mmol/L Blood Urea Nitrogen 34 7-18 mg/dl Creatinine 1.40 0.60-1.20 mg/dl Est Creatinine Clear Calc Drug Dose 28.5 ml/min Estimated GFR () 41.6 Estimated GFR (Non- 35.9 BUN/Creatinine Ratio 24.1 10-20 Random Glucose 92 70-99 mg/dl Calcium Level 8.5 8.5-10.1 mg/dl Test 06/22/16 07:32 Range/Units Bedside Glucose 91 70-90 mg/dl
--- NOTE | 2016-06-22 09:34 | Discharge Instructions ---
Discharge Instructions Date of Service Jun 22, 2016. Admission Reason for Admission: Hyperkalemia Discharge Discharge Diagnosis / Problem: 1. Hyperkalemia 2. Acute kidney injury Discharge Goals Goal(s): Decrease discomfort, Improve function, Increase independence Activity Recommendations Activity Limitations: resume your previous activity (as tolerated prior to admission with assistance; PT/OT recommended) . Instructions / Follow-Up Instructions / Follow-Up MEDICATION CHANGES: 1. Discontinued Metformin due to elevated creatinine 2. Januvia dose to be decreased to 50 mg daily from 100 mg daily according to your kidney function FOLLOW UP 1. Follow up with PCP (Dr Rivera turcios) ON 06/28/16 AT 1:00 PM PT/OT recommended outpatient Current Hospital Diet Patient's current hospital diet: Renal Diet, Diabetes Type 2 Diet, AHA Diet ( Heart Healthy) Discharge Diet Recommended Diet: AHA Diet (Heart Healthy), Low Sodium Diet (2gm Na), Diabetes Type 2 Diet Pending Studies Studies pending at discharge: no Medical Emergencies . Who to Call and When: Medical Emergencies: If at any time you feel your situation is an emergency, please call 911 immediately. . Non-Emergent Contact Non-Emergency issues call your: Primary Care Provider . . "Provider Documentation" section prepared by Keshia Rodriguez. VTE Core Measure Inpt VTE Proph given/why not?: Unfractionated heparin SQ
--- NOTE | 2016-06-22 09:37 | Discharge Summary ---
Discharge Summary Date of Service Jun 22, 2016. Discharge Summary Admission Date: Jun 18, 2016 at 19:08 Discharge Date: Jun 22, 2016 Discharge Disposition: Home with services Principal Diagnosis: 1. Hyperkalemia 2. ALESSIA vs ALESSIA on CKD-III 3. Left leg pain, possible cellulitis/radicular pain from back 4. 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 HTN 2. DM-2, NIDDM 3. Hypothyroidism Procedures: Lower extremity US Tibia/fibula x ray Lumbar x ray Lumber MRI CXR PT/OT Consultations: None Pending Studies/Follow-Up: Instructions / Follow-Up MEDICATION CHANGES: 1. Discontinued Metformin due to elevated creatinine 2. Januvia dose to be decreased to 50 mg daily from 100 mg daily according to your kidney function FOLLOW UP 1. Follow up with PCP (Dr Rivera turcios) ON 06/28/16 AT 1:00 PM PT/OT recommended outpatient Medication Reconciliation New Medications: Doxycycline Hyclate (Doxycycline Hyclate) 100 Mg Cap 100 MG PO BID for 4 Days, #8 CAP Changed Medications: Sitagliptin Phosphate (Januvia) 100 Mg Tab 50 MG PO DAILY for 30 Days, #30 0 Refills (Changed from: 100 MG) Continued Medications: Alendronate Sodium (Fosamax) 70 Mg Tab 70 MG PO WK, TAB Amlodipine (Norvasc) 5 Mg Tab 5 MG PO DAILY, TAB Aspirin (Aspirin Chewable) 81 Mg Chew 162 MG PO QPM, TAB Gabapentin (Neurontin) 300 Mg Cap 300 MG PO HS, CAP Levothyroxine Sodium (Synthroid) 125 Mcg Tab 1 TAB PO DAILY for 30 Days, #30 TAB 5 Refills Omeprazole (Prilosec) 20 Mg Capcr 20 MG PO QPM, 0 Refills TAKE THIS MEDICATION 30 MINUTES BEFORE EVENING MEAL. Oxycodone/Acetaminophen 5MG/325MG (Percocet 5MG/325MG) Tab 1 TABLET PO Q6HR PRN, 0 Refills NEEDED FOR PAIN. Discontinued Medications: Metformin Hcl (Glucophage) 500 Mg Tab 500 MG PO BIDM, TAB Naproxen (Naprosyn) 500 Mg Tab 500 MG PO BID, 0 Refills Admission Information HPI (per Admitting provider): 80 year old female who presents to the ER with generalized weakness and left lower leg pain. Patient reports she has felt weak for a while. She reports her leg started hurting a few days ago and has been progressively getting worse. She reports it hurts from the knee down. She is only able to bear minimal weight on the leg. Patient had cellulitis a few years ago and reports a chronic pink discoloration to the left lower leg since then. She also reports it is more swollen than the right. She feels like the swelling is a little bit worse. Patient was seen by her PCP a few weeks ago for a routine visit and had labs that showed worsening renal function and high potassium. She was told to stop any potassium supplements and have the labs redrawn which she did not do. She was then seen again for dysuria and was given Cipro. No urine culture was done. She reports urinary symptoms have improved. Daughter in law is at the bedside who reports she does not feel like she has been drinking alot. Patient also takes Naproxen twice a day. She denies chest pain and shortness of breath. She reports occasional dizziness but denies lightheadedness and syncopal events. No abdominal pain, nausea, or vomiting. She reports she chronically struggles with constipation and diarrhea. She denies fever and chills. In the ER, K+ is found to be 6.0 and creat 1.5. EKG does not show any acute changes. Vitals are stable. She was ordered Kayexalate. Physical Exam (per Admitting): General Appearance: no apparent distress Head: atraumatic Eyes: normal inspection ENT: hearing grossly normal Neck: supple, no JVD Respiratory/Chest: lungs clear, normal breath sounds, no respiratory distress Cardiovascular: regular rate, rhythm, normal peripheral pulses, + pertinent finding (+1 edema BLLE, L > R ) Abdomen/GI: normal bowel sounds, non tender, soft Extremities/Musculoskelatal: + pertinent finding (LLE tender to palpation medially, laterally, posteriorly, and anteriorly; palpable pedal pulse; warm to touch) Neurologic/Psych: no motor/sensory deficits, alert, normal mood/affect, oriented x 3 Skin: warm/dry, + pertinent finding (LLE with dry flakey skin, mild pink discoloration) Hospital Course HYPERKALEMIA- Resolved ALESSIA VS ALESSIA ON CKD-III- Improved, near her baseline Patient presented with generalized weakness and left lower extremity pain; found to have K+ 6.0, creat 1.5 . Patient had labs drawn in the clinic on 05/22 that demonstrated similar results; prior to has not had labs since 2014 that showed creat 1.1 and K+ 5.1 -Likely this is her baseline 1.4-.1.5 - ? prerenal due to poor PO intake in combination with chronic Naproxen use with hx of HTN, DM - S/P IVF. Discontinued Metformin, Reduced dose of Januvia to 50 mg per cr clearance - S/P Kayexalate in ED, Insulin / D50/ IVF - Renal US - normal LEFT LEG PAIN - Probably sciatica as improved by itself. Could be radicular pain from back with hx of chronic low back pain and x 2 surgeries associated with progressively worsening symptoms. - LLE- mild redness, tender to touch, X ray - soft tissue edema, so empirically started with doxycycline (day 2) for possible infectious component- possible cellulitis and responding as pain has improved. - Work up- US negative for DVT, Tibia/Fibula x ray- soft tissue edema, no fractures. - Lumbar X ray/MRI ordered- 1. Multilevel lumbar spondylosis as described above most pronounced at the L2-3 and L3-L4 levels. This is primarily due to the moderate dextroscoliosis and facet hypertrophy. 2. Posterior decompression and fusion from L4 through S1. 3. 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 DISPO - PT/OT ordered- Recommends Home with [facility]. - Ok to discharge home today Discussed with son by bedside on 06/20/16 Total time spent on discharge = 32 minutes This includes examination of the patient, discharge planning, medication reconciliation, and communication with other providers. Discharge Instructions Discharge Goals Goal(s): Decrease discomfort, Improve function, Increase independence Activity Recommendations Activity Limitations: resume your previous activity (as tolerated prior to admission with assistance; PT/OT recommended) . Instructions / Follow-Up Instructions / Follow-Up MEDICATION CHANGES: 1. Discontinued Metformin due to elevated creatinine 2. Januvia dose to be decreased to 50 mg daily from 100 mg daily according to your kidney function FOLLOW UP 1. Follow up with PCP (Dr Rivera turcios) ON 06/28/16 AT 1:00 PM PT/OT recommended outpatient Current Hospital Diet Patient's current hospital diet: Renal Diet, Diabetes Type 2 Diet, AHA Diet ( Heart Healthy) Discharge Diet Recommended Diet: AHA Diet (Heart Healthy), Low Sodium Diet (2gm Na), Diabetes Type 2 Diet Pending Studies Studies pending at discharge: no Medical Emergencies . Who to Call and When: Medical Emergencies: If at any time you feel your situation is an emergency, please call 911 immediately. . Non-Emergent Contact Non-Emergency issues call your: Primary Care Provider . . "Provider Documentation" section prepared by Keshia Rodriguez. VTE Core Measure Inpt VTE Proph given/why not?: Unfractionated heparin SQ
[2016-06-22 11:15] VITALS: BP 137/77; PULSE 66; TEMP 36.6; O2SAT 96
== END 2016-06-22 16:38 | disposition home or self-care (01) | DRG 683 ==
LOC: ENRESERVDT → ENRESERVTM → C.EDB 14:41 → C.MED 19:08
PROVIDERS: ADMIT Internal Medicine; ATTEND Internal Medicine
DX: N17.9 Acute kidney failure, unspecified (principal); L03.116 Cellulitis of left lower limb; Z96.642 Presence of left artificial hip joint; E87.5 Hyperkalemia; Z86.73 Personal history of transient ischemic attack (TIA), and cerebral infarction without residual deficits; E11.22 Type 2 diabetes mellitus with diabetic chronic kidney disease; N18.3 Chronic kidney disease, stage 3 (moderate); E78.5 Hyperlipidemia, unspecified; E03.9 Hypothyroidism, unspecified; K21.9 Gastro-esophageal reflux disease without esophagitis; M81.0 Age-related osteoporosis without current pathological fracture; E11.40 Type 2 diabetes mellitus with diabetic neuropathy, unspecified; Z90.49 Acquired absence of other specified parts of digestive tract; Z87.891 Personal history of nicotine dependence; Z82.3 Family history of stroke; Z88.8 Allergy status to other drugs, medicaments and biological substances; Z88.2 Allergy status to sulfonamides; Z79.82 Long term (current) use of aspirin; Z79.84 Long term (current) use of oral hypoglycemic drugs; I12.9 Hypertensive chronic kidney disease with stage 1 through stage 4 chronic kidney disease, or unspecified chronic kidney disease; B35.1 Tinea unguium; M41.9 Scoliosis, unspecified; M47.896 Other spondylosis, lumbar region; Z79.1 Long term (current) use of non-steroidal anti-inflammatories (NSAID)

== ENCOUNTER 2019-06-02 12:36 | Inpatient (IN) ==
--- OUTSIDE RECORDS SUMMARY | 2019-06-02 12:40 | External Medical Summary | Continuity of Care Document ---
:1935 Author Name Raquel Cerda, Provider Address Unavailable Unavailable , Care Team Providers Name Role Phone Paul Cerda, Bran Field Unavailable [email or web address] PCP, UNKNOWN Unavailable Unavailable Problems Active medical history not documented Allergies and Adverse Reactions Allergy history not documented Medications Medications not documented Procedures Procedures not documented Immunizations Immunizations not documented Plan of Treatment Planned Observations Planned Goals not documented Results No Known Results Results not documented
--- OUTSIDE RECORDS SUMMARY | 2019-06-02 12:41 | External Medical Summary | Continuity of Care Document ---
:1935 Author Name Raquel Cerda, Provider Address Unavailable Unavailable , Care Team Providers Name Role Phone Paul Cerda, Bran Field Unavailable [email or web address] PCP, UNKNOWN Unavailable Unavailable Problems Active medical history not documented Allergies and Adverse Reactions Allergy history not documented Medications Medications not documented Procedures Procedures not documented Immunizations Immunizations not documented Plan of Treatment Planned Observations Planned Goals not documented Results No Known Results Results not documented
[2019-06-02] MEDS ORDERED: ACETAMINOPHEN 1,000 MG/100 ML VIAL IV STA (15:14)
--- NOTE | 2019-06-02 15:16 | Emergency Department Note ---
ED Visit Note I assisted attending Dr. Mendez in the care of this patient. Please see attending's note for details of the visit. Tere Haque MD [employer] PGY-3 . Resident Activity Tracking Resident Involvement: Resident Care Provided Care Provided: Adult ED
[2019-06-02] MEDS: SODIUM CHLORIDE 0.9% 500 ML IV SCH ×4 (16:04→21:26)
--- NOTE | 2019-06-02 16:04 | XRay Report ---
XR chest 1V portable CLINICAL HISTORY: cough dyspnea COMPARISON STUDY: 06/18/2016 FINDINGS: Consolidative infiltrate right base. Minimal interstitial infiltrate left base. Upper lungs are clear. IMPRESSION: 1. Consolidative infiltrate right base with medial consolidative/infiltrative change. 2. Minimal interstitial infiltrate left base. 3. This study should be repeated a later date to ensure complete resolution and exclude any residual nodular process. ACT 112: Negative or not required by law. The above report was generated using voice recognition software. It may contain grammatical, syntax or spelling errors. Electronically signed by: Wally Alatorre M.D. 06/02/2019 4:02 PM
[2019-06-02 16:07] LABS: Basophils # (auto) 0.02 K/uL (0-0.2); Basophils % (auto) 0.1 %; Eosinophils # (auto) 0.27 K/uL (0-0.5); Eosinophils % (auto) 1.3 %; Hematocrit (blood only) 48.2 % (37-47); Hemoglobin 15.6 g/dL (12.0-16.0); Immature Granulocytes # (auto) 0.19 K/uL (0.00-0.02); Immature Granulocytes % (auto) 0.9 %; Lymphocytes # (auto) 1.86 K/uL (1.2-3.4); Lymphocytes % (auto) 9.1 %; Mean Corpuscular Hemoglobin 31.4 pg (25-34); Mean Corpuscular Hgb Conc 32.4 g/dL (32-36); Mean Platelet Volume 10.9 fL (7.4-10.4); Monocytes # (auto) 1.53 K/uL (0.11-0.59); Monocytes % (auto) 7.5 %; Neutrophils # (auto) 16.66 K/uL (1.4-6.5); Neutrophils % (auto) 81.1 %; Platelet Count 199 K/uL (130-400); RDW Coefficient of Variation 13.7 % (11.5-14.5); RDW Standard Deviation 48.6 fL (36.4-46.3); Red Blood Count 4.97 M/uL (4.2-5.4); White Blood Count 20.53 K/uL (4.8-10.8)
[2019-06-02 16:08] LABS: Appearance Urine Cloudy (Clear); Bacteria Urine Automated 1+ (Negative); Bilirubin Urine Negative (Negative); Blood Urine Negative (Negative); Color Urine Yellow; Epithelial Cell Urine Auto >30 /lpf (0-5); Glucose Urine UA Negative (Negative); Ketones Urine Trace (Negative); Leukocyte Esterase Urine Trace (Negative); Nitrite Urine Negative (Negative); Protein Urine Negative (Negative); Specific Gravity Urine 1.013 (1.000-1.030); Urobilinogen Urine Negative (Negative)
[2019-06-02 16:27] LABS: Albumin Level 2.9 gm/dl (3.4-5.0); Calcium 9.4 mg/dl (8.5-10.1); Creatinine Clr Calc Pharmacy 27.2 ml/min; Est GFR (African American) 42.2; Est GFR (Non-African American) 36.4; Potassium 4.2 mmol/L (3.5-5.1)
[2019-06-02] MEDS ORDERED: cefTRIAXone SODIUM 1,000 MG/50 ML BAG IV STA (16:27)
[2019-06-02] MEDS ORDERED: AZITHROMYCIN 250 MG TAB PO ONE (16:27)
[2019-06-02 16:30] LABS: Albumin Globulin Ratio 0.6 (0.9-2); Bilirubin,Total 0.9 mg/dl (0.2-1); Globulin 4.6 gm/dl (2.5-4.0); Total Protein 7.5 gm/dl (6.4-8.2)
[2019-06-02 16:53] LABS: Influenza A virus by PCR Neg for Influ A (Neg); Influenza B virus by PCR Neg for Influ B (Neg)
--- NOTE | 2019-06-02 17:48 | History & Physical Report ---
Date of Service June 02, 2019 Assessment & Plan (1) Right lower lobe pneumonia: Has been complaining of URI symptoms for the last 2 weeks Finished a course of antibiotic and prednisone recent Increasing shortness of breath cough and feverish feeling since Saturday last Chest x-ray showed right lower lobe infiltration with white count of 20,000 Cultures were taken and started with intravenous ceftriaxone and doxycycline Has been feeling a little better since in the ER Present on Admission?: Yes (2) Weakness: Complaints of generalized weakness due to illness (3) Acute kidney injury superimposed on chronic kidney disease: Has history of chronic kidney disease stage III BUN and creatinine is elevated Will give small amount of intravenous fluid and advised her to drink more fluid Monitor PRP Present on Admission?: Yes (4) Acute dehydration: Complicating renal function (5) DM type 2 (diabetes mellitus, type 2): Does not take any medication as an outpatient We will follow diabetic diet Check hemoglobin A1c SSI (6) Neuropathy: Secondary to diabetes (7) Hypothyroidism: Continue supplement DVT prophylaxis Subcu heparin CODE STATUS Full History of Present Illness Chief Complaint: Increasing shortness of breath with cough and feverish feeling since Saturday last Primary Care Provider: Juanito Shane DO She is 83-year-old female significant past medical history of diabetes type 2, hyperlipidemia, chronic kidney disease stage III, GERD, hypothyroidism and osteoporosis apparently has been complaining of increasing shortness of breath, cough with productive of phlegm and feeling of hot and cold since Saturday last. The condition got worse as of this morning and she was brought into emergency room for further evaluation. She has had URI symptoms about 2 weeks ago and was given a course of prednisone and azithromycin which she finished Saturday last. She denies any chest pain and/or palpitation, denies any abdominal pain nausea and or vomiting, no problem with urine and her bowel habit and denies any numbness and/or tingling involving any of the extremities. She noticed to have more weakness and tiredness and dizziness but no falls. She was noted to have a high white count of 20,000 and the chest x-ray did show right basilar infiltrate from that point she was admitted to medical floor for continuation of care. Allergies Allergy/AdvReac Type Severity Reaction Status Date / Time rosuvastatin Allergy Intermediate GI SYMPTOMS Verified 06/02/19 15:42 Sulfa (Sulfonamide Allergy Unknown . Verified 06/02/19 15:42 Antibiotics) simvastatin AdvReac Unknown MUSCLE Verified 06/02/19 15:42 WEAKNESS Home Medications Home Medications Medication Instructions Recorded Confirmed Type albuterol sulfate 2 puff INHALATION QID PRN 06/02/19 06/02/19 History albuterol sulfate 2.5 mg INHALATION DIRECTED PRN 06/02/19 06/02/19 History amlodipine 5 mg PO QAM 06/02/19 06/02/19 History aspirin 162 mg PO QAM 06/02/19 06/02/19 History cholecalciferol (vitamin D3) 50,000 unit PO WK 06/02/19 06/02/19 History gabapentin 300 mg PO HS 06/02/19 06/02/19 History levothyroxine 137 mcg PO QAM 06/02/19 06/02/19 History omeprazole 20 mg PO QAM 06/02/19 06/02/19 History oxycodone-acetaminophen 0.5 tab PO Q8H PRN 06/02/19 06/02/19 History Past Med/Surg History Medical History CKD (chronic kidney disease), stage III (Chronic) CVA (cerebral vascular accident) (Chronic) DM type 2 (diabetes mellitus, type 2) (Chronic) Dyslipidemia (Chronic) GERD (gastroesophageal reflux disease) (Chronic) Hypothyroidism (Chronic) Neuropathy (Chronic) Osteoporosis (Chronic) Surgical History H/O umbilical hernia repair (Chronic) History of appendectomy (Chronic) History of cataract surgery (Chronic) History of cholecystectomy (Chronic) History of spinal surgery (Chronic) "x 2 " Status post total hip replacement, left (Chronic) Family History Other Family history non-contributory Social History Preferred Language: [place] Feels Safe at Home: Yes Smoking Status: Former smoker Review of Systems Review of Systems: All systems reviewed & are unremarkable except as noted in HPI & below Physical Exam Physical Exam: Lying in bed with minimal distress due to shortness of breath and cough Constitutional: + acute distress (Moderate cough and shortness of breath), + ill appearing and + thin Eyes: PERRL, conjunctivae normal, anicteric sclerae ENMT: external ear and nose normal, oropharynx normal Neck: trachea midline, no thyromegaly Respiratory: normal respiratory effort and + respiratory distress (Minimal distress at rest) Auscultation: + diminished lung sounds and + crackles (Mostly in the right base) Cardiovascular: Rate/Rhythm: regular rate and regular rhythm Heart Sounds: no murmur Gastrointestinal (Abdomen): Inspection/Auscultation: abdomen normal to inspection Percussion/Palpation: + abdomen tender (Mildly tender) and abdomen soft; no guarding and abdomen not rigid Musculoskeletal: No acute arthritis involving any joints Neurologic: moves all extremities; no focal motor deficits Lymphatic: no cervical or axillary lymphadenopathy Results & Data Vital Signs (Past 12 Hours) Vital Signs Temp Pulse Resp BP Pulse Ox 06/02/19 17:01 72 16 96 06/02/19 17:00 71 17 96/51 L 96 06/02/19 16:31 80 25 H 98 06/02/19 16:30 75 18 113/59 L 98 06/02/19 16:06 83 20 135/63 90 06/02/19 16:04 84 19 91 06/02/19 12:59 37.5 C 94 H 20 130/50 L 90 06/02/19 12:41 83 18 123/80 90 Laboratory Results Short CBC 06/02/19 Range/Units 15:50 WBC 20.53 H (4.8-10.8) K/uL Hgb 15.6 (12.0-16.0) g/dL Hct 48.2 H (37-47) % Plt Count 199 (130-400) K/uL BMP 06/02/19 15:50 Sodium 135 L Potassium 4.2 Chloride 99 Carbon Dioxide 31 BUN 30 H Creatinine 1.36 H Glucose 106 H Calcium 9.4 Liver Function 06/02/19 Range/Units 15:50 Total Bilirubin 0.9 (0.2-1) mg/dl AST 25 (15-37) U/L ALT 14 (12-78) U/L Alkaline Phosphatase 87 (45-117) U/L Albumin 2.9 L (3.4-5.0) gm/dl Urine 06/02/19 Range/Units 15:50 Urine Color Yellow Urine Appearance Cloudy A (Clear) Urine pH 8.0 H (4.5-7.5) Ur Specific [place] 1.013 (1.000-1.030) Urine Protein Negative (Negative) Urine Glucose (UA) Negative (Negative) Medications Administered Current Inpatient Medications Heparin Sodium (Porcine) (Heparin Sodium (Porcine)) 5,000 units SQ Q12 SHASHI Stop: 07/02/19 20:59 Sodium Chloride (Nss) 500 mls @ 999 mls/hr IV .Q31M SHASHI Stop: 07/02/19 15:14 Last Infusion: 06/02/19 17:00 Dose: Infused Documented by: Ceftriaxone Sodium 1,000 mg/ (Dextrose) 50 mls @ 100 mls/hr IV Q24H SHASHI; Protocol Stop: 06/09/19 17:44 Doxycycline Hyclate 100 mg/ (Dextrose) 110 mls @ 50 mls/hr IV BID [facility] Stop: 06/09/19 20:59 Sodium Chloride (Nss 1000ml) 1,000 mls @ 80 mls/hr IV .[id number] SHASHI Stop: 06/03/19 18:44 Code Status & VTE Plan VTE Prophylaxis Plan VTE Prophylaxis will be ordered: Yes (1) Right lower lobe pneumonia Pneumonia type: due to unspecified organism Qualified Code(s): J18.9 - Pneumonia, unspecified organism
[2019-06-02] MEDS ORDERED: ALBUTEROL 0.083% NEBU SOLN 3 ML VIAL INH PRN (19:06)
[2019-06-02] MEDS ORDERED: ALBUTEROL HFA 8 GM INHALER INH PRN (19:06)
[2019-06-02] MEDS ORDERED: OXYCODONE/ACETAMINOPHEN 5mg/325mg TAB PO PRN (19:06)
[2019-06-02] MEDS: SODIUM CHLORIDE 0.9% 1000ML 1,000 ML IV SCH (19:43)
--- NOTE | 2019-06-02 20:12 | Emergency Department Note ---
Entered by Twila Issa acting as a scribe for Edgar Mendez MD History of Present Illness General Chief complaint: Illness Stated complaint: RINGING IN EARS, LACK OF ENERGY, NOT RIGHT Time Seen by Provider: 06/02/19 14:38 Source: patient History of Present Illness Provider complaint: Illness Onset (ago): week(s) 2 Location: chest Maximum Pain Intensity: 8 Relieved By: + none Exacerbated By: + none Associated symptoms: + diaphoresis and + weakness The patient is a 83 year old female w/ PMHx of hypothyroidism, osteoporosis, diabetes type II, dyslipidemia, CVA, COPD, GERD, neuropathy, CKD, appendectomy, cataract surgery, cholecystectomy, spinal surgery, left hip replacement, and umbilical hernia repair who presents to the ED w/ CC of an illness beginning 2 weeks ago. The patient states that she was treated for a URI/sore throat with Prednisone and a Z-Robbie about two weeks ago with no improvement. The patient states that her symptoms are not relieved nor exacerbated by anything specific. The patient reports experiencing diaphoresis and increased weakness. The patient notes that her son has walking pneumonia and did get her flu shot this year. Home Medications Home Medications Medication Instructions Recorded Confirmed Type albuterol sulfate 2 puff INHALATION QID PRN 06/02/19 06/02/19 History albuterol sulfate 2.5 mg INHALATION DIRECTED PRN 06/02/19 06/02/19 History amlodipine 5 mg PO QAM 06/02/19 06/02/19 History aspirin 162 mg PO QAM 06/02/19 06/02/19 History cholecalciferol (vitamin D3) 50,000 unit PO WK 06/02/19 06/02/19 History gabapentin 300 mg PO HS 06/02/19 06/02/19 History levothyroxine 137 mcg PO QAM 06/02/19 06/02/19 History omeprazole 20 mg PO QAM 06/02/19 06/02/19 History oxycodone-acetaminophen 0.5 tab PO Q8H PRN 06/02/19 06/02/19 History Allergies Allergy/AdvReac Type Severity Reaction Status Date / Time rosuvastatin Allergy Intermediate GI SYMPTOMS Verified 06/02/19 15:42 Sulfa (Sulfonamide Allergy Unknown . Verified 06/02/19 15:42 Antibiotics) simvastatin AdvReac Unknown MUSCLE Verified 06/02/19 15:42 WEAKNESS Past Med/Surg History Medical History CKD (chronic kidney disease), stage III (Chronic) CVA (cerebral vascular accident) (Chronic) DM type 2 (diabetes mellitus, type 2) (Chronic) Dyslipidemia (Chronic) GERD (gastroesophageal reflux disease) (Chronic) Hypothyroidism (Chronic) Neuropathy (Chronic) Osteoporosis (Chronic) Surgical History H/O umbilical hernia repair (Chronic) History of appendectomy (Chronic) History of cataract surgery (Chronic) History of cholecystectomy (Chronic) History of spinal surgery (Chronic) "x 2 " Status post total hip replacement, left (Chronic) Family History Other Family history non-contributory Social History Preferred Language: Lao Feels Safe at Home: Yes Smoking Status: Former smoker Review of Systems See HPI for pertinent positives & negatives. and A total of 10 systems reviewed and were otherwise negative Physical Exam Vital Signs Vital Signs - 24 hr 06/02/19 12:41 06/02/19 12:59 06/02/19 16:04 Temperature 37.5 C Temperature Source Oral Pulse Rate 83 94 H 84 Pulse Rate from SpO2 Sensor 83 83 Respiratory Rate 18 20 19 Respiratory Effort / Characteristics Non-Labored Respiratory Depth Normal Blood Pressure 123/80 130/50 L Blood Pressure Mean 94 76 Blood Pressure Position Sitting Pulse Oximetry 90 90 91 Oxygen Delivery Method Room Air Sepsis Recent Fever Within 48 Hours No Sepsis New/Unexplained Change in Mental Status No Sepsis Action Taken by Nursing No Action Required 06/02/19 16:06 06/02/19 16:30 06/02/19 16:31 Temperature Temperature Source Pulse Rate 83 75 80 Pulse Rate from SpO2 Sensor 83 75 81 Respiratory Rate 20 18 25 H Respiratory Effort / Characteristics Respiratory Depth Blood Pressure 135/63 113/59 L Blood Pressure Mean 96 77 Blood Pressure Position Pulse Oximetry 90 98 98 Oxygen Delivery Method Sepsis Recent Fever Within 48 Hours Sepsis New/Unexplained Change in Mental Status Sepsis Action Taken by Nursing 06/02/19 17:00 06/02/19 17:01 06/02/19 17:30 Temperature Temperature Source Pulse Rate 71 72 70 Pulse Rate from SpO2 Sensor 72 72 Respiratory Rate 17 16 17 Respiratory Effort / Characteristics Respiratory Depth Blood Pressure 96/51 L 116/54 L Blood Pressure Mean 69 74 Blood Pressure Position Pulse Oximetry 96 96 Oxygen Delivery Method Sepsis Recent Fever Within 48 Hours Sepsis New/Unexplained Change in Mental Status Sepsis Action Taken by Nursing 06/02/19 17:31 Temperature Temperature Source Pulse Rate 69 Pulse Rate from SpO2 Sensor Respiratory Rate 17 Respiratory Effort / Characteristics Respiratory Depth Blood Pressure Blood Pressure Mean Blood Pressure Position Pulse Oximetry Oxygen Delivery Method Sepsis Recent Fever Within 48 Hours Sepsis New/Unexplained Change in Mental Status Sepsis Action Taken by Nursing GENERAL: Well appearing, well nourished, NAD, non-toxic. EYE EXAM: Normal conjunctiva. PERRL, no anisocoria and EOM's grossly intact w/o pain. OROPHARYNX: Dry mucous membranes. Missing numerous teeth. No exudate, posterior pharynx is clear, no tonsillar/uvular deviation. Mild pharyngeal erythema. NECK: Supple, no nuchal rigidity, no adenopathy, non-tender. No signs of meningismus. LUNGS: Clear to auscultation. Normal chest wall mechanics. HEART: NSR, no MRG. ABDOMEN: Abdomen soft, lower abdominal discomfort not peritonitic, normo-active bowel sounds, no masses, no rebound or guarding. BACK: No CVA TTP. SKIN: No rashes and no bruising. UPPER EXTREMITIES: Upper extremities are grossly normal. LOWER EXTREMITIES: No pitting edema. No calf pain. NEURO EXAM: A&O x3, cranial nerves II-XII grossly intact, normal speech, moves all 4 extremities on command w/o issue. Course Course 1445: Past medical records reviewed. The patient was seen and evaluated by the Resident Physician in room B04B at this time. History and physical were discussed with me. 1527: Physical exam performed by me. 1655: I spoke with Dr. Spears- Hospitalist about the patient's case and he will accept the patient for further evaluation. Administered Medications Sodium Chloride (Nss) 500 mls @ 999 mls/hr IV .[id number] SHASHI Stop: 07/02/19 15:14 Last Admin: 06/02/19 19:08 Dose: Not Given Documented by: [id number] Admin: 06/02/19 19:07 Dose: Not Given Documented by: [id number] Infusion: 06/02/19 17:00 Dose: 0 mls/hr Documented by: [id number] Admin: 06/02/19 16:04 Dose: 999 mls/hr Documented by: [id number] Sodium Chloride (Nss 1000ml) 1,000 mls @ 80 mls/hr IV .[id number] SHASHI Stop: 06/03/19 19:44 Last Admin: 06/02/19 19:43 Dose: 80 mls/hr Documented by: [id number] Discontinued Medications Azithromycin (Zithromax) 500 mg PO NOW ONE Stop: 06/02/19 16:28 Last Admin: 06/02/19 17:04 Dose: 500 mg Documented by: [id number] Acetaminophen (Ofirmev) 1,000 mg in 100 mls @ 400 mls/hr IV NOW STA Stop: 06/02/19 15:28 Last Infusion: 06/02/19 16:21 Dose: 0 mls/hr Documented by: [id number] Admin: 06/02/19 16:04 Dose: 400 mls/hr Documented by: [id number] Ceftriaxone Sodium (Rocephin) 1,000 mg in 50 mls @ 100 mls/hr IV NOW STA Stop: 06/02/19 16:56 Last Infusion: 06/02/19 17:37 Dose: 0 mls/hr Documented by: [id number] Admin: 06/02/19 17:04 Dose: 100 mls/hr Documented by: [id number] Medical Decision Making Differential Diagnosis Differential Diagnosis includes but is not limited to dehydration, stroke, anemia, hypoglycemia, hyponatremia, hypernatremia, urinary tract infection, pneumonia, bronchitis, sepsis, gastroenteritis, additional abdominal pathology, metabolic abnormalities and infections. Medical Records Attestation: I reviewed the patient's medical records. Home Medications Current Medication List: was personally reviewed by me Laboratory Data Attestation: I reviewed the patient's lab results. Result diagrams: 06/02/19 15:50 06/02/19 15:50 Lab Results 06/02/19 06/02/19 06/02/19 Range/Units 15:50 15:50 15:50 WBC 20.53 H (4.8-10.8) K/uL RBC 4.97 (4.2-5.4) M/uL Hgb 15.6 (12.0-16.0) g/dL Hct 48.2 H (37-47) % MCV 97.0 (80-100) fL MCH 31.4 (25-34) pg MCHC 32.4 (32-36) g/dL RDW Std Deviation 48.6 H (36.4-46.3) fL RDW Coeff of Jaden 13.7 (11.5-14.5) % Plt Count 199 (130-400) K/uL MPV 10.9 H (7.4-10.4) fL Immature Gran % (Auto) 0.9 % Neut % (Auto) 81.1 % Lymph % (Auto) 9.1 % [place] % (Auto) 7.5 % Eos % (Auto) 1.3 % Baso % (Auto) 0.1 % Immature Gran # (Auto) 0.19 H (0.00-0.02) K/uL Neut # (Auto) 16.66 H (1.4-6.5) K/uL Lymph # (Auto) 1.86 (1.2-3.4) K/uL [place] # (Auto) 1.53 H (0.11-0.59) K/uL Eos # (Auto) 0.27 (0-0.5) K/uL Baso # (Auto) 0.02 (0-0.2) K/uL Sodium 135 L (136-145) mmol/L Potassium 4.2 (3.5-5.1) mmol/L Chloride 99 (98-107) mmol/L Carbon Dioxide 31 (21-32) mmol/L Anion Gap 5.0 (3-11) BUN 30 H (7-18) mg/dl Creatinine 1.36 H (0.6-1.2) mg/dl Est Cr Clr Drug Dosing 27.2 ml/min Est GFR ( Amer) 42.2 Est GFR (Non-Af Amer) 36.4 BUN/Creatinine Ratio 22.0 H (10-20) Glucose 106 H (70-99) mg/dl Calcium 9.4 (8.5-10.1) mg/dl Total Bilirubin 0.9 (0.2-1) mg/dl AST 25 (15-37) U/L ALT 14 (12-78) U/L Alkaline Phosphatase 87 (45-117) U/L Total Protein 7.5 (6.4-8.2) gm/dl Albumin 2.9 L (3.4-5.0) gm/dl Globulin 4.6 H (2.5-4.0) gm/dl Albumin/Globulin Ratio 0.6 L (0.9-2) Urine Color Yellow Urine Appearance Cloudy A (Clear) Urine pH 8.0 H (4.5-7.5) Ur Specific [place] 1.013 (1.000-1.030) Urine Protein Negative (Negative) Urine Glucose (UA) Negative (Negative) Urine Ketones Trace H (Negative) Urine Blood Negative (Negative) Urine Nitrite Negative (Negative) Urine Bilirubin Negative (Negative) Urine Urobilinogen Negative (Negative) Ur Leukocyte Esterase Trace H (Negative) Urine WBC (Auto) 5-10 H (0-5) /hpf Urine RBC (Auto) 10-30 H (0-4) /hpf U Hyaline Cast (Auto) 1-5 (0-5) /lpf U Epithel Cells (Auto) >30 H (0-5) /lpf Urine Bacteria (Auto) 1+ H (Negative) Influenza Type A (PCR) (Neg) Influenza Type B (PCR) (Neg) 06/02/19 Range/Units 16:05 WBC (4.8-10.8) K/uL RBC (4.2-5.4) M/uL Hgb (12.0-16.0) g/dL Hct (37-47) % MCV (80-100) fL MCH (25-34) pg MCHC (32-36) g/dL RDW Std Deviation (36.4-46.3) fL RDW Coeff of Jaden (11.5-14.5) % Plt Count (130-400) K/uL MPV (7.4-10.4) fL Immature Gran % (Auto) % Neut % (Auto) % Lymph % (Auto) % [place] % (Auto) % Eos % (Auto) % Baso % (Auto) % Immature Gran # (Auto) (0.00-0.02) K/uL Neut # (Auto) (1.4-6.5) K/uL Lymph # (Auto) (1.2-3.4) K/uL [place] # (Auto) (0.11-0.59) K/uL Eos # (Auto) (0-0.5) K/uL Baso # (Auto) (0-0.2) K/uL Sodium (136-145) mmol/L Potassium (3.5-5.1) mmol/L Chloride (98-107) mmol/L Carbon Dioxide (21-32) mmol/L Anion Gap (3-11) BUN (7-18) mg/dl Creatinine (0.6-1.2) mg/dl Est Cr Clr Drug Dosing ml/min Est GFR ( Amer) Est GFR (Non-Af Amer) BUN/Creatinine Ratio (10-20) Glucose (70-99) mg/dl Calcium (8.5-10.1) mg/dl Total Bilirubin (0.2-1) mg/dl AST (15-37) U/L ALT (12-78) U/L Alkaline Phosphatase (45-117) U/L Total Protein (6.4-8.2) gm/dl Albumin (3.4-5.0) gm/dl Globulin (2.5-4.0) gm/dl Albumin/Globulin Ratio (0.9-2) Urine Color Urine Appearance (Clear) Urine pH (4.5-7.5) Ur Specific [place] (1.000-1.030) Urine Protein (Negative) Urine Glucose (UA) (Negative) Urine Ketones (Negative) Urine Blood (Negative) Urine Nitrite (Negative) Urine Bilirubin (Negative) Urine Urobilinogen (Negative) Ur Leukocyte Esterase (Negative) Urine WBC (Auto) (0-5) /hpf Urine RBC (Auto) (0-4) /hpf U Hyaline Cast (Auto) (0-5) /lpf U Epithel Cells (Auto) (0-5) /lpf Urine Bacteria (Auto) (Negative) Influenza Type A (PCR) Neg for Influ A (Neg) Influenza Type B (PCR) Neg for Influ B (Neg) Imaging Data Radiologist's Impression: Radiology results as stated below per my review and the radiologist's interpretation: XR chest 1V portable CLINICAL HISTORY: cough dyspnea COMPARISON STUDY: 06/18/2016 FINDINGS: Consolidative infiltrate right base. Minimal interstitial infiltrate left base. Upper lungs are clear. IMPRESSION: 1. Consolidative infiltrate right base with medial consolidative/infiltrative change. 2. Minimal interstitial infiltrate left base. 3. This study should be repeated a later date to ensure complete resolution and exclude any residual nodular process. ACT 112: Negative or not required by law. The above report was generated using voice recognition software. It may contain grammatical, syntax or spelling errors. Electronically signed by: Wally Alatorre M.D. 06/02/2019 4:02 PM Blood Pressure Blood Pressure Findings: Low blood pressure Blood Pressure Disposition: further management by hospitalist ARTURO Narrative The patient is a 83 year old female w/ PMHx of hypothyroidism, osteoporosis, diabetes type II, dyslipidemia, CVA, COPD, GERD, neuropathy, CKD, appendectomy, cataract surgery, cholecystectomy, spinal surgery, left hip replacement, and umbilical hernia repair who presents to the ED w/ CC of an illness beginning 2 weeks ago. Continuous Cardiac Monitoring: An order was placed for continuous cardiac monitoring. The monitor shows a rate of 94 with sinus rhythm. Patient was seen and evaluated at the bedside after being seen and evaluated by the resident physician. The patient has complained of some persistent weakness mild sore throat. The patient was on Z-Robbie and prednisone as an outpatient for URI type symptoms. The patient also did complain of some lower abdominal discomfort. On exam more suprapubic discomfort. Patient was concerned with the possibility of a UTI. Patient does have a white blood cell count of 20. This might be somewhat exacerbated by the recent steroid use given that the patient does have a right lower lobe pneumonia will treat with antibiotics. No recent inpatient treatment. Rocephin and has a azithromycin ordered. Patient's flu negative. Patient was admitted to the medicine service. Impression & Plan Right lower lobe pneumonia, Weakness, Acute dehydration Discharge Plan Visit Data *Final* Discharge Date/Time: 06/02/19 18:20 Chief Complaint: Illness Stated Complaint: RINGING IN EARS, LACK OF ENERGY, NOT RIGHT ED Provider: Edgar Mendez ED Midlevel Provider: Tere Haque Discharge Problem: Right lower lobe pneumonia, Weakness, Acute dehydration Patient Disposition: Admitted As Inpatient Discharge Instructions Interventions: ED Discharge Assessment Last Done: 06/02/19 18:20 Discharge Problem: Right lower lobe pneumonia Qualifiers: Pneumonia type: due to unspecified organism Qualified Code(s): J18.9 - Pneumonia, unspecified organism The scribe's documentation has been prepared under my direction and personally reviewed by me in its entirety. I confirm that the note above accurately reflects all work, treatment, procedures, and medical decision making performed by me.
[2019-06-02] MEDS: DOXYCYCLINE HYCLATE 100 MG in DEXTROSE 5% 100 ML IV SCH (20:46)
[2019-06-02] MEDS: HEPARIN SOD 5,000 UNIT/0.5 ML VIAL SQ SCH (20:49)
[2019-06-02] MEDS: GABAPENTIN 300 MG CAP PO SCH (20:50)
[2019-06-02] MEDS: INSULIN ASPART 100 UNITS/ML 3 ML PEN SC SCH (20:52)
[2019-06-02] MEDS: OXYCODONE HCL IR 5 MG TAB (IMMEDIATE RELEASE) PO PRN (22:20)
[2019-06-03] MEDS: LEVOTHYROXINE SODIUM 137 MCG TABLET PO SCH (05:40)
[2019-06-03 06:22] LABS: Basophils # (auto) 0.01 K/uL (0-0.2); Basophils % (auto) 0.1 %; Eosinophils # (auto) 0.44 K/uL (0-0.5); Eosinophils % (auto) 3.8 %; Hematocrit (blood only) 39.9 % (37-47); Hemoglobin 12.2 g/dL (12.0-16.0); Immature Granulocytes % (auto) 0.9 %; Lymphocytes # (auto) 1.79 K/uL (1.2-3.4); Lymphocytes % (auto) 15.3 %; Mean Corpuscular Hemoglobin 29.9 pg (25-34); Mean Corpuscular Hgb Conc 30.6 g/dL (32-36); Mean Corpuscular Volume 97.8 fL (80-100); Monocytes # (auto) 1.11 K/uL (0.11-0.59); Monocytes % (auto) 9.5 %; Neutrophils # (auto) 8.26 K/uL (1.4-6.5); Neutrophils % (auto) 70.4 %; Platelet Count 154 K/uL (130-400); RDW Coefficient of Variation 13.8 % (11.5-14.5); RDW Standard Deviation 48.4 fL (36.4-46.3); Red Blood Count 4.08 M/uL (4.2-5.4); White Blood Count 11.71 K/uL (4.8-10.8)
--- NOTE | 2019-06-03 06:52 | Ultrasound Report ---
US venous doppler LE CLINICAL HISTORY: 83 years-old Female presenting with bilateral leg pain and swelling. TECHNIQUE: Real-time grayscale and color and spectral Doppler ultrasound imaging of the veins of the bilateral lower extremities was performed. Compression and augmentation were also utilized. COMPARISON: 06/18/2016. FINDINGS: RIGHT: Common femoral vein: Patent. Greater saphenous vein (superficial): Patent. Deep femoral vein: Patent. Femoral vein: Patent. Popliteal vein: Patent. Calf veins: Patent. LEFT: Common femoral vein: Patent. Greater saphenous vein (superficial): Patent. Deep femoral vein: Patent. Femoral vein: Patent. Popliteal vein: Patent. Calf veins: Patent. Other: Subcutaneous edema noted in the popliteal fossae, right greater than left. IMPRESSION: 1. No evidence of deep venous thrombosis. 2. Bilateral lower extremity edema, right greater than left. ACT 112: Negative or not required by law. Electronically signed by: Carlos Alberto Soto M.D. 06/03/2019 6:51 AM
[2019-06-03 06:54] LABS: BUN Creatinine Ratio 21.7 (10-20); Calcium 8.4 mg/dl (8.5-10.1); Creatinine Clr Calc Pharmacy 30.3 ml/min; Est GFR (African American) 46.3; Est GFR (Non-African American) 39.9; Potassium 4.4 mmol/L (3.5-5.1)
[2019-06-03 07:14] LABS: Estimated Average Glucose 123 mg/dl; Hemoglobin A1C 5.9 % (4.5-5.6)
[2019-06-03] MEDS: ASPIRIN 81 MG ECTAB PO SCH (08:32)
[2019-06-03] MEDS: PANTOprazole 40 MG TAB PO SCH (08:32)
[2019-06-03] MEDS: AMLODIPINE BESYLATE 5 MG TAB PO SCH (08:32)
[2019-06-03] MEDS: SODIUM CHLORIDE 0.9% 1000ML 1,000 ML IV SCH (08:34)
[2019-06-03] MEDS: HEPARIN SOD 5,000 UNIT/0.5 ML VIAL SQ SCH ×2 (08:45→21:33)
[2019-06-03] MEDS: INSULIN ASPART 100 UNITS/ML 3 ML PEN SC SCH ×4 (08:48→21:32)
[2019-06-03] MEDS: SODIUM CHLORIDE 0.9% 500 ML IV SCH ×5 (09:13→10:26)
[2019-06-03] MEDS: DOXYCYCLINE HYCLATE 100 MG in DEXTROSE 5% 100 ML IV SCH ×2 (09:15→21:29)
[2019-06-03] MEDS: OXYCODONE HCL IR 5 MG TAB (IMMEDIATE RELEASE) PO PRN (13:35)
[2019-06-03] MEDS: cefTRIAXone SODIUM 1,000 MG in DEXTROSE 5% 50 ML IV SCH (16:02)
--- NOTE | 2019-06-03 20:29 | Hospitalist Progress Note ---
Date of Service June 03, 2019 Assessment & Plan (1) Right lower lobe pneumonia: Presented with subjective fever, cough, SOB. 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 Chest x-ray showed RLL infiltrate. WBC 20,530. RLL pneumonia, community acquired. Receiving doxycycline and ceftriaxone with improvement. Wean O2. Increase activity. (2) Cerebrovascular disease: Continue aspirin. (3) CKD (chronic kidney disease), stage III: Serum creatinine at time of admission 1.36, compared to baseline of 1.5. Creatinine today = 1.26. Follow. (4) Diabetes mellitus type 2, controlled: Diet-controlled. Hgb A1C 5.9. FBS today = 82. Insulin coverage as needed. (5) Hypothyroidism: Continue levothyroxine. (6) DVT prophylaxis: SQ heparin. Ambulate. (7) Discharge planning issues: Anticipated discharge to home. Family Medicine follow-up with Dr. Juanito Shane. Admission and Anticipated Discharge Date Admission Date: June 02, 2019 Subjective Recheck for pneumonia and other problems. Patient seen in their room around 1720. Feels better. Cough improved. Less SOB. No fever. No chest pain. Review of Systems: Constitutional- as noted above. Cardiac- no anginal pain. Pulmonary- as noted above. GI- no nausea, vomiting, diarrhea, melena, hematochezia. - no urinary symptoms. Otherwise, as noted above. Physical Exam Constitutional: no acute distress Respiratory: no respiratory distress Auscultation: + rhonchi and + wheezes Cardiovascular: Rate/Rhythm: regular rate and regular rhythm Heart Sounds: no gallop Vessels: no JVD Extremities: no calf tenderness and no edema Gastrointestinal (Abdomen): normal bowel sounds, soft, nontender, no hepatosplenomegaly Musculoskeletal: Extremities: no cyanosis Skin: no rashes, warm and dry Psychiatric: Orientation: alert Results & Data ([facility]) Vital Signs (Past 12 Hours) Vital Signs Temp Pulse Resp BP Pulse Ox 06/03/19 17:17 86 18 97 06/03/19 15:47 37.1 C 70 18 124/61 94 Laboratory Results 06/03/19 05:24 06/03/19 05:24 Microbiology 06/02/19 15:50 Urine,Clean Catch Urine Culture - Preliminary Pin-point growth present, reincubating. 06/02/19 16:08 Throat Group A Streptococcus Rapid Screen - Final Specimen negative for Group A Beta Strep by rapid method. Culture report to follow. 06/02/19 16:08 Throat Group A Beta-Hemolytic Strep Cult - Preliminary No beta strep isolated to date. (1) Right lower lobe pneumonia Pneumonia type: due to unspecified organism Qualified Code(s): J18.9 - Pneumonia, unspecified organism
[2019-06-03] MEDS: GABAPENTIN 300 MG CAP PO SCH (21:33)
[2019-06-04] MEDS: OXYCODONE HCL IR 5 MG TAB (IMMEDIATE RELEASE) PO PRN ×2 (00:24→10:05)
[2019-06-04] MEDS: LEVOTHYROXINE SODIUM 137 MCG TABLET PO SCH (05:44)
[2019-06-04 07:27] LABS: Hematocrit (blood only) 36.8 % (37-47); Hemoglobin 11.5 g/dL (12.0-16.0); Mean Corpuscular Hemoglobin 30.3 pg (25-34); Mean Corpuscular Hgb Conc 31.3 g/dL (32-36); Mean Corpuscular Volume 97.1 fL (80-100); Mean Platelet Volume 10.8 fL (7.4-10.4); Platelet Count 154 K/uL (130-400); RDW Coefficient of Variation 13.9 % (11.5-14.5); RDW Standard Deviation 49.7 fL (36.4-46.3); Red Blood Count 3.79 M/uL (4.2-5.4); White Blood Count 10.42 K/uL (4.8-10.8)
[2019-06-04 08:00] LABS: BUN Creatinine Ratio 20.1 (10-20); Calcium 8.2 mg/dl (8.5-10.1); Creatinine Clr Calc Pharmacy 35.1 ml/min; Est GFR (African American) 55.1; Est GFR (Non-African American) 47.6; Potassium 4.2 mmol/L (3.5-5.1)
[2019-06-04] MEDS: INSULIN ASPART 100 UNITS/ML 3 ML PEN SC SCH ×4 (08:38→20:33)
[2019-06-04] MEDS: DOXYCYCLINE HYCLATE 100 MG CAP PO SCH ×2 (08:38→20:32)
[2019-06-04] MEDS: PANTOprazole 40 MG TAB PO SCH (08:38)
[2019-06-04] MEDS: HEPARIN SOD 5,000 UNIT/0.5 ML VIAL SQ SCH ×2 (08:38→20:31)
[2019-06-04] MEDS: ASPIRIN 81 MG ECTAB PO SCH (08:39)
[2019-06-04] MEDS: AMLODIPINE BESYLATE 5 MG TAB PO SCH (08:39)
[2019-06-04] MEDS ORDERED: GLUCAGON FOR INJ 1 MG VIAL IM PRN (14:45)
[2019-06-04] MEDS ORDERED: GLUCOSE 10 TABS/TUBE PO PRN (14:45)
[2019-06-04] MEDS ORDERED: DEXTROSE 50% 50 ML SYRINGE IV PRN (14:45)
[2019-06-04] MEDS ORDERED: GLUCOSE 40% GEL 15 GM TUBE PO PRN (14:45)
[2019-06-04] MEDS ORDERED: CARBOHYDRATES FOR HYPOGLYCEMIA PO PRN (14:45)
[2019-06-04] MEDS: cefTRIAXone SODIUM 1,000 MG in DEXTROSE 5% 50 ML IV SCH (15:53)
--- NOTE | 2019-06-04 19:59 | Hospitalist Progress Note ---
Date of Service June 04, 2019 Assessment & Plan (1) Right lower lobe pneumonia: Presented with subjective fever, cough, SOB. 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 Chest x-ray showed RLL infiltrate. WBC 20,530. RLL pneumonia, community acquired. Receiving doxycycline and ceftriaxone with improvement. Wean O2. Increase activity. (2) Cerebrovascular disease: Continue aspirin. (3) CKD (chronic kidney disease), stage III: Serum creatinine at time of admission 1.36, compared to baseline of 1.5. Creatinine today = 1.09. Follow. (4) Diabetes mellitus type 2, controlled: Diet-controlled. Hgb A1C 5.9. FBS today = 86. Insulin coverage as needed. (5) Hypothyroidism: Continue levothyroxine. (6) DVT prophylaxis: SQ heparin. Ambulate. (7) Discharge planning issues: Anticipated discharge to home. Family Medicine follow-up with Dr. Juanito Shane. Admission and Anticipated Discharge Date Admission Date: June 02, 2019 Subjective Recheck for pneumonia and other problems. Patient seen in their room around 1320. Feels better. Out of bed in chair. Cough productive of clear sputum, improved. Less SOB. Still requiring supplemental O2. No fever. No chest pain. Review of Systems: Constitutional- as noted above. Cardiac- no anginal pain. Pulmonary- as noted above. GI- no nausea, vomiting, diarrhea, melena, hematochezia. - no urinary symptoms. Otherwise, as noted above. Physical Exam Constitutional: no acute distress Respiratory: no respiratory distress Auscultation: + rhonchi and + wheezes Cardiovascular: Rate/Rhythm: regular rate and regular rhythm Heart Sounds: no gallop Vessels: no JVD Extremities: no calf tenderness and no edema Gastrointestinal (Abdomen): normal bowel sounds, soft, nontender, no hepa tosplenomegaly Musculoskeletal: Extremities: no cyanosis Skin: no rashes, warm and dry Psychiatric: Orientation: alert Results & Data ([facility]) Vital Signs (Past 12 Hours) Vital Signs Temp Pulse Resp BP Pulse Ox 06/04/19 15:27 36.8 C 79 18 117/60 92 Laboratory Results 06/04/19 06:57 06/04/19 06:57 (1) Right lower lobe pneumonia Pneumonia type: due to unspecified organism Qualified Code(s): J18.9 - Pneumonia, unspecified organism
[2019-06-04] MEDS: GABAPENTIN 300 MG CAP PO SCH (20:32)
[2019-06-05] MEDS: OXYCODONE HCL IR 5 MG TAB (IMMEDIATE RELEASE) PO PRN ×3 (00:36→16:52)
[2019-06-05] MEDS: LEVOTHYROXINE SODIUM 137 MCG TABLET PO SCH (05:43)
[2019-06-05] MEDS: INSULIN ASPART 100 UNITS/ML 3 ML PEN SC SCH ×4 (09:38→20:36)
[2019-06-05] MEDS: ASPIRIN 81 MG ECTAB PO SCH (09:40)
[2019-06-05] MEDS: DOXYCYCLINE HYCLATE 100 MG CAP PO SCH ×2 (09:41→20:35)
[2019-06-05] MEDS: AMLODIPINE BESYLATE 5 MG TAB PO SCH (09:41)
[2019-06-05] MEDS: PANTOprazole 40 MG TAB PO SCH (09:41)
[2019-06-05] MEDS: HEPARIN SOD 5,000 UNIT/0.5 ML VIAL SQ SCH ×2 (09:44→20:36)
[2019-06-05] MEDS: cefTRIAXone SODIUM 1,000 MG in DEXTROSE 5% 50 ML IV SCH (16:36)
[2019-06-05] MEDS ORDERED: ALUMINUM/MAGNESIUM/SIMETH (MAALOX MAX) 30 ML UDC PO PRN (18:09)
[2019-06-05] MEDS: GABAPENTIN 300 MG CAP PO SCH (20:35)
--- NOTE | 2019-06-05 23:31 | Hospitalist Progress Note ---
Date of Service June 05, 2019 Assessment & Plan (1) Right lower lobe pneumonia: Presented with subjective fever, cough, SOB. 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 Chest x-ray showed RLL infiltrate. WBC 20,530. RLL pneumonia, community acquired. Receiving doxycycline and ceftriaxone with improvement. Wean O2. Increase activity. (2) Cerebrovascular disease: Continue aspirin. (3) CKD (chronic kidney disease), stage III: Serum creatinine at time of admission 1.36, compared to baseline of 1.5. Creatinine yesterday = 1.09. Follow. (4) Diabetes mellitus type 2, controlled: Diet-controlled. Hgb A1C 5.9. FBS today = 91. Insulin coverage as needed. (5) Hypothyroidism: Continue levothyroxine. (6) DVT prophylaxis: SQ heparin. Ambulate. (7) Discharge planning issues: Anticipated discharge to home. Family Medicine follow-up with Dr. Juanito Shane. Admission and Anticipated Discharge Date Admission Date: June 02, 2019 Subjective Recheck for pneumonia and other problems. Patient seen in their room. Out of bed in chair. Cough improved. Less SOB. Still requiring supplemental O2. No fever. No chest pain. Ambulating some in room. Review of Systems: Constitutional- as noted above. Cardiac- no anginal pain. Pulmonary- as noted above. GI- no nausea, vomiting, diarrhea, melena, hematochezia. - no urinary symptoms. Otherwise, as noted above. Physical Exam Constitutional: no acute distress Respiratory: no respiratory distress Auscultation: + rhonchi and + wheezes Cardiovascular: Rate/Rhythm: regular rate and regular rhythm Heart Sounds: no gallop Vessels: no JVD Extremities: no calf tenderness and no edema Gastrointestinal (Abdomen): normal bowel sounds, soft, nontender, no hepatosplenomegaly Musculoskeletal: Extremities: no cyanosis Skin: no rashes, warm and dry Psychiatric: Orientation: alert Results & Data ([facility]) Vital Signs (Past 12 Hours) Vital Signs Temp Pulse Resp BP Pulse Ox 06/05/19 22:27 36.7 C 83 18 156/68 H 96 06/05/19 16:02 36.6 C 74 20 130/63 96 Laboratory Results 06/05/19 06/05/19 06/05/19 08:00 11:52 16:38 POC Glucose 91 103 H 92 06/05/19 19:34 POC Glucose 122 H (1) Right lower lobe pneumonia Pneumonia type: due to unspecified organism Qualified Code(s): J18.9 - Pneumonia, unspecified organism
[2019-06-06 06:04] LABS: Mean Corpuscular Hemoglobin 30.5 pg (25-34); Mean Corpuscular Hgb Conc 31.6 g/dL (32-36); Mean Corpuscular Volume 96.7 fL (80-100); Mean Platelet Volume 10.4 fL (7.4-10.4); Platelet Count 147 K/uL (130-400); RDW Coefficient of Variation 13.5 % (11.5-14.5); RDW Standard Deviation 48.3 fL (36.4-46.3); Red Blood Count 3.93 M/uL (4.2-5.4); White Blood Count 13.34 K/uL (4.8-10.8)
[2019-06-06] MEDS: LEVOTHYROXINE SODIUM 137 MCG TABLET PO SCH (06:29)
[2019-06-06 06:35] LABS: BUN Creatinine Ratio 18.8 (10-20); Est GFR (African American) 62.7; Est GFR (Non-African American) 54.1; Potassium 4.2 mmol/L (3.5-5.1)
[2019-06-06] MEDS: ASPIRIN 81 MG ECTAB PO SCH (08:02)
[2019-06-06] MEDS: PANTOprazole 40 MG TAB PO SCH (08:02)
[2019-06-06] MEDS: AMLODIPINE BESYLATE 5 MG TAB PO SCH (08:02)
[2019-06-06] MEDS: DOXYCYCLINE HYCLATE 100 MG CAP PO SCH (08:03)
[2019-06-06] MEDS: HEPARIN SOD 5,000 UNIT/0.5 ML VIAL SQ SCH ×2 (08:26→21:29)
[2019-06-06] MEDS: INSULIN ASPART 100 UNITS/ML 3 ML PEN SC SCH ×4 (08:27→21:30)
[2019-06-06] MEDS: cefTRIAXone SODIUM 1,000 MG in DEXTROSE 5% 50 ML IV SCH (16:34)
--- NOTE | 2019-06-06 18:50 | Hospitalist Progress Note ---
Date of Service June 06, 2019 Assessment & Plan (1) Right lower lobe pneumonia: Presented with subjective fever, cough, SOB. 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 Chest x-ray showed RLL infiltrate. WBC 20,530 at time of admission. RLL pneumonia, community acquired. Receiving doxycycline and ceftriaxone with improvement. Still hypoxic. Continue supplemental O2. Check f/u chest x-ray. (2) Cerebrovascular disease: Continue aspirin. (3) CKD (chronic kidney disease), stage III: Serum creatinine at time of admission 1.36, compared to baseline of 1.5. Creatinine today = 0.98. Follow. (4) Diabetes mellitus type 2, controlled: Diet-controlled. Hgb A1C 5.9. FBS today = 107. Insulin coverage as needed. (5) Hypothyroidism: Continue levothyroxine. (6) Weakness: Generalized weakness with poor functional status requiring 2 person assist. PT/OT evaluations. (7) DVT prophylaxis: SQ heparin. Ambulate. (8) Discharge planning issues: To be determined. May need skilled care. PT/OT evaluations. Consult Case Management. Family Medicine follow-up with Dr. Juanito Shane. Admission and Anticipated Discharge Date Admission Date: June 02, 2019 Subjective Recheck for pneumonia and other problems. Patient seen in their room around 1110.. Tired. O2 sats 85% on RA. No fever. Occasional cough. SOB with exertion. No chest pain. Small emesis this morning after AM meds; no hematemesis. Weak. 2-person assist. Review of Systems: Constitutional- as noted above. Cardiac- no anginal pain. Pulmonary- as noted above. GI- no diarrhea, melena, hematochezia. - no urinary symptoms. Otherwise, as noted above. Physical Exam Constitutional: no acute distress Respiratory: no respiratory distress Auscultation: + rhonchi and + wheezes Cardiovascular: Rate/Rhythm: regular rate and regular rhythm Heart Sounds: no gallop Vessels: no JVD Extremities: no calf tenderness and no edema Gastrointestinal (Abdomen): normal bowel sounds, soft, nontender, no hepatosplenomegaly Musculoskeletal: Extremities: no cyanosis Skin: no rashes, warm and dry Psychiatric: Orientation: alert Results & Data ([facility]) Vital Signs (Past 12 Hours) Vital Signs Temp Pulse Resp BP Pulse Ox 06/06/19 15:44 36.9 C 80 16 131/66 99 06/06/19 07:18 36.9 C 82 16 139/78 97 Laboratory Results 06/06/19 05:50 06/06/19 05:50 Microbiology 06/02/19 15:50 Urine,Clean Catch Urine Culture - Final More than three types of organisms present, all high counts mixed probable skin kacy - No further identifications or sensitivities to follow. 06/02/19 16:08 Throat Group A Streptococcus Rapid Screen - Final Specimen negative for Group A Beta Strep by rapid method. Culture report to follow. 06/02/19 16:08 Throat Group A Beta-Hemolytic Strep Cult - Final No beta strep isolated. (1) Right lower lobe pneumonia Pneumonia type: due to unspecified organism Qualified Code(s): J18.9 - Pneumonia, unspecified organism
[2019-06-06] MEDS: DOXYCYCLINE HYCLATE 100 MG in DEXTROSE 5% 100 ML IV SCH (21:30)
[2019-06-06] MEDS: GABAPENTIN 300 MG CAP PO SCH (21:31)
[2019-06-06] MEDS: OXYCODONE HCL IR 5 MG TAB (IMMEDIATE RELEASE) PO PRN (22:40)
[2019-06-07] MEDS: LEVOTHYROXINE SODIUM 137 MCG TABLET PO SCH (06:22)
[2019-06-07] MEDS: PANTOprazole 40 MG TAB PO SCH (07:55)
[2019-06-07] MEDS: AMLODIPINE BESYLATE 5 MG TAB PO SCH (07:56)
[2019-06-07] MEDS: ASPIRIN 81 MG ECTAB PO SCH (07:56)
[2019-06-07] MEDS: DOXYCYCLINE HYCLATE 100 MG in DEXTROSE 5% 100 ML IV SCH ×2 (08:08→20:42)
--- NOTE | 2019-06-07 08:36 | Hospitalist Progress Note ---
Date of Service June 07, 2019 Assessment & Plan (1) Right lower lobe pneumonia: Presented with subjective fever, cough, SOB. 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 Chest x-ray showed RLL infiltrate. WBC 20,530 at time of admission. RLL pneumonia, community acquired. Receiving doxycycline and ceftriaxone with improvement. Still hypoxic. Continue supplemental O2. Check f/u chest x-ray today. (2) Cerebrovascular disease: Continue aspirin. (3) CKD (chronic kidney disease), stage III: Serum creatinine at time of admission 1.36, compared to baseline of 1.5. Creatinine yesterday = 0.98. Follow. (4) Diabetes mellitus type 2, controlled: Diet-controlled. Hgb A1C 5.9. FBS today = 82. Insulin coverage as needed. (5) Hypothyroidism: Continue levothyroxine. (6) Weakness: Generalized weakness with poor functional status requiring 2 person assist. PT/OT evaluations. (7) DVT prophylaxis: SQ heparin. Ambulate. (8) Discharge planning issues: To be determined. May need skilled care. PT/OT evaluations. Consult Case Management. Family Medicine follow-up with Dr. Juanito Shane. Admission and Anticipated Discharge Date Admission Date: June 02, 2019 Subjective Recheck for pneumonia and other problems. Patient seen in their room around 0820. No fever. Occasional cough. SOB with exertion. No chest pain. No further emesis. No diarrhea. 2-person assist. Review of Systems: Constitutional- as noted above. Cardiac- no anginal pain. Pulmonary- as noted above. GI- as noted above. - no urinary symptoms. Otherwise, as noted above. Physical Exam Constitutional: no acute distress Respiratory: no respiratory distress Auscultation: + rhonchi and + wheezes Cardiovascular: Rate/Rhythm: regular rate and regular rhythm Heart Sounds: no gallop Vessels: no JVD Extremities: no calf tenderness and no edema Gastrointestinal (Abdomen): normal bowel sounds, soft, nontender, no h epatosplenomegaly Musculoskeletal: Extremities: no cyanosis Skin: no rashes, warm and dry Psychiatric: Orientation: alert Results & Data ([facility]) Vital Signs (Past 12 Hours) Vital Signs Temp Pulse Resp BP Pulse Ox 06/07/19 07:29 36.7 C 66 18 119/72 97 06/06/19 22:00 37.0 C 76 18 143/77 H 96 Laboratory Results 06/06/19 06/06/19 06/06/19 07:57 11:53 16:59 POC Glucose 107 H 92 156 H 06/06/19 06/07/19 20:21 07:46 POC Glucose 95 82 (1) Right lower lobe pneumonia Pneumonia type: due to unspecified organism Qualified Code(s): J18.9 - Pneumonia, unspecified organism
--- NOTE | 2019-06-07 09:06 | XRay Report ---
XR chest 2V PA/lateral HISTORY: f/u pneumonia COMPARISON: Chest 06/02/2019. FINDINGS: Small moderate right pleural effusion has progressed.. Right middle and lower lobe airspace opacity has progressed. The heart is normal in size. There is a small patchy right midlung zone airs pace opacity. No pneumothorax. A few linear densities at the left lung base are again noted and may r epresent atelectasis. IMPRESSION: Interval progression of the right pleural effusion and right mid to lower lung zone airspace opacitie s. ACT 112: Negative or not required by law. Electronically signed by: Willy Murillo M.D. 06/07/2019 9:05 AM
[2019-06-07] MEDS: OXYCODONE HCL IR 5 MG TAB (IMMEDIATE RELEASE) PO PRN ×3 (09:36→20:42)
[2019-06-07] MEDS: INSULIN ASPART 100 UNITS/ML 3 ML PEN SC SCH ×4 (09:50→20:43)
[2019-06-07] MEDS: HEPARIN SOD 5,000 UNIT/0.5 ML VIAL SQ SCH ×2 (09:51→20:42)
[2019-06-07] MEDS: GABAPENTIN 100 MG CAP PO SCH (13:29)
[2019-06-07] MEDS: cefTRIAXone SODIUM 1,000 MG in DEXTROSE 5% 50 ML IV SCH (16:17)
[2019-06-07] MEDS: GABAPENTIN 300 MG CAP PO SCH (20:43)
[2019-06-08] MEDS: LEVOTHYROXINE SODIUM 137 MCG TABLET PO SCH (06:04)
[2019-06-08 06:52] LABS: Hematocrit (blood only) 38.6 % (37-47); Hemoglobin 12.2 g/dL (12.0-16.0); Mean Corpuscular Hemoglobin 30.6 pg (25-34); Mean Corpuscular Hgb Conc 31.6 g/dL (32-36); Mean Corpuscular Volume 96.7 fL (80-100); Mean Platelet Volume 10.3 fL (7.4-10.4); Platelet Count 133 K/uL (130-400); RDW Coefficient of Variation 13.4 % (11.5-14.5); RDW Standard Deviation 48.3 fL (36.4-46.3); Red Blood Count 3.99 M/uL (4.2-5.4); White Blood Count 11.73 K/uL (4.8-10.8)
[2019-06-08 07:27] LABS: BUN Creatinine Ratio 18.3 (10-20); Calcium 9.4 mg/dl (8.5-10.1); Creatinine Clr Calc Pharmacy 37.9 ml/min; Est GFR (African American) 60.5; Est GFR (Non-African American) 52.2; Potassium 4.3 mmol/L (3.5-5.1)
[2019-06-08] MEDS ORDERED: ERGOCALCIFEROL 50,000 UNITS CAP PO SCH (09:00)
[2019-06-08] MEDS: ASPIRIN 81 MG ECTAB PO SCH (09:21)
[2019-06-08] MEDS: PANTOprazole 40 MG TAB PO SCH (09:22)
[2019-06-08] MEDS: HEPARIN SOD 5,000 UNIT/0.5 ML VIAL SQ SCH ×2 (09:22→20:19)
[2019-06-08] MEDS: DOXYCYCLINE HYCLATE 100 MG in DEXTROSE 5% 100 ML IV SCH (09:22)
[2019-06-08] MEDS: AMLODIPINE BESYLATE 5 MG TAB PO SCH (09:22)
[2019-06-08] MEDS: INSULIN ASPART 100 UNITS/ML 3 ML PEN SC SCH ×4 (09:25→20:20)
[2019-06-08] MEDS: GABAPENTIN 100 MG CAP PO SCH (10:08)
[2019-06-08] MEDS: cefTRIAXone SODIUM 1,000 MG in DEXTROSE 5% 50 ML IV SCH (15:50)
--- NOTE | 2019-06-08 20:02 | Hospitalist Progress Note ---
Date of Service June 08, 2019 Assessment & Plan (1) Right lower lobe pneumonia: Presented with subjective fever, cough, SOB. 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 Chest x-ray showed RLL infiltrate. WBC 20,530 at time of admission. RLL pneumonia, community acquired. Receiving doxycycline and ceftriaxone with improvement. WBC down to 11,730. Still hypoxic. Continue supplemental O2. Repeat chest x-ray 06/06 showed increasing right pleural effusion. Probably has parapneumonic effusion; doubt empyema. Discuss with Pulmonary Medicine. (2) Cerebrovascular disease: Continue aspirin. (3) CKD (chronic kidney disease), stage III: Serum creatinine at time of admission 1.36, compared to baseline of 1.5. Creatinine today = 1.01. Follow. (4) Diabetes mellitus type 2, controlled: Diet-controlled. Hgb A1C 5.9. FBS today = 113. Insulin coverage as needed. (5) Hypothyroidism: Continue levothyroxine. (6) Weakness: Generalized weakness with poor functional status requiring 2 person assist. PT/OT evaluations done today. (7) DVT prophylaxis: SQ heparin. Ambulate. (8) Discharge planning issues: To be determined. May need skilled care. PT/OT evaluations. Consult Case Management. Family Medicine follow-up with Dr. Juanito Shane. Daughter visiting and given update. Admission and Anticipated Discharge Date Admission Date: June 02, 2019 Subjective Recheck for pneumonia and other problems. Patient seen in their room around 1650. Better. No fever. Cough improved. SOB with exertion. No chest pain. No further emesis. No diarrhea. Worked with PT today. Review of Systems: Constitutional- as noted above. Cardiac- no anginal pain. Pulmonary- as noted above. GI- as noted above. - no urinary symptoms. Otherwise, as noted above. Physical Exam Constitutional: no acute distress Respiratory: no respiratory distress Auscultation: + rhonchi and + wheezes (improved) Cardiovascular: Rate/Rhythm: regular rate and regular rhythm Heart Sounds: no gallop Vessels: no JVD Extremities: no calf tenderness and no edema Gastrointestinal (Abdomen): normal bowel sounds, soft, nontender, no hepatosplenomegaly Musculoskeletal: Extremities: no cyanosis Skin: no rashes, warm and dry Psychiatric: Orientation: alert Results & Data ([facility]) Vital Signs (Past 12 Hours) Vital Signs Temp Pulse Resp BP Pulse Ox 03/09/20 15:02 37.1 C 84 16 123/68 98 Laboratory Results Laboratory Results - last 24 hr 06/07/19 06/08/19 06/08/19 20:11 06:26 06:26 WBC 11.73 H RBC 3.99 L Hgb 12.2 Hct 38.6 MCV 96.7 MCH 30.6 MCHC 31.6 L RDW Std Deviation 48.3 H RDW Coeff of Jaden 13.4 Plt Count 133 MPV 10.3 Sodium 139 Potassium 4.3 Chloride 106 Carbon Dioxide 28 Anion Gap 5.0 BUN 19 H Creatinine 1.01 Est Cr Clr Drug Dosing 37.9 Est GFR ( Amer) 60.5 Est GFR (Non-Af Amer) 52.2 BUN/Creatinine Ratio 18.3 Glucose 106 H POC Glucose 135 H Calcium 9.4 06/08/19 06/08/19 06/08/19 08:04 12:10 16:43 WBC RBC Hgb Hct MCV MCH MCHC RDW Std Deviation RDW Coeff of Jaden Plt Count MPV Sodium Potassium Chloride Carbon Dioxide Anion Gap BUN Creatinine Est Cr Clr Drug Dosing Est GFR ( Amer) Est GFR (Non-Af Amer) BUN/Creatinine Ratio Glucose POC Glucose 113 H 132 H 198 H Calcium 06/08/19 19:52 WBC RBC Hgb Hct MCV MCH MCHC RDW Std Deviation RDW Coeff of Jaden Plt Count MPV Sodium Potassium Chloride Carbon Dioxide Anion Gap BUN Creatinine Est Cr Clr Drug Dosing Est GFR ( Amer) Est GFR (Non-Af Amer) BUN/Creatinine Ratio Glucose POC Glucose 110 H Calcium (1) Right lower lobe pneumonia Pneumonia type: due to unspecified organism Qualified Code(s): J18.9 - Pneumonia, unspecified organism
[2019-06-08] MEDS: OXYCODONE HCL IR 5 MG TAB (IMMEDIATE RELEASE) PO PRN (20:19)
[2019-06-08] MEDS: GABAPENTIN 300 MG CAP PO SCH (20:20)
[2019-06-08] MEDS: DOXYCYCLINE HYCLATE 100 MG CAP PO SCH (20:20)
[2019-06-09] MEDS: LEVOTHYROXINE SODIUM 137 MCG TABLET PO SCH (06:15)
[2019-06-09] MEDS: GABAPENTIN 100 MG CAP PO SCH (08:18)
[2019-06-09] MEDS: ASPIRIN 81 MG ECTAB PO SCH (08:18)
[2019-06-09] MEDS: AMLODIPINE BESYLATE 5 MG TAB PO SCH (08:18)
[2019-06-09] MEDS: PANTOprazole 40 MG TAB PO SCH (08:19)
[2019-06-09] MEDS: HEPARIN SOD 5,000 UNIT/0.5 ML VIAL SQ SCH ×2 (08:19→20:55)
[2019-06-09] MEDS: DOXYCYCLINE HYCLATE 100 MG CAP PO SCH ×2 (08:19→20:54)
[2019-06-09] MEDS: INSULIN ASPART 100 UNITS/ML 3 ML PEN SC SCH ×4 (08:22→20:53)
[2019-06-09 11:17] LABS: INR 1.1 (0.9-1.1); Partial Thromboplastin Ratio 1.2; Partial Thromboplastin Time 34.7 Seconds (21.0-31.0); Prothrombin Time 11.3 Seconds (9.0-12.0)
[2019-06-09] MEDS: DOCUSATE SODIUM/SENNA 50/8.6MG TAB PO SCH ×2 (12:46→20:55)
--- NOTE | 2019-06-09 14:37 | XRay Report ---
XR chest 1V portable CLINICAL HISTORY: S/P Thoracentesis and pigtail catheter tube position COMPARISON STUDY: 06/07/2019 FINDINGS: Improved aeration right base post right basilar chest tube placement. This appears to be a pigtail catheter. Lungs otherwise appear clear. No evidence for pneumothorax. IMPRESSION: Improved aeration right base post right basilar drainage catheter placement. No evidence for pneumothorax. ACT 112: Negative or not required by law. The above report was generated using voice recognition software. It may contain grammatical, syntax or spelling errors. Electronically signed by: Wally Alatorre M.D. 06/09/2019 2:36 PM
[2019-06-09] MEDS: OXYCODONE HCL IR 5 MG TAB (IMMEDIATE RELEASE) PO PRN ×2 (14:43→20:17)
--- NOTE | 2019-06-09 14:45 | Procedure Note ---
Procedure Note Date of Service June 09, 2019 Note PIGTAIL CATHETER PLACEMENT NOTE: Procedure: Pigtail Catheter Chest Tube Placement Indication: Hydropneumothorax Anesthesia: 10 mL lidocaine 1% Written consent was obtained and on the chart per attending providers. Prior to procedure, chest x-ray films were reviewed by myself and demonstrated simple pleural effusion. A time-out was completed verifying correct patient, procedure, site, positioning, and implant(s) or special equipment if applicable. Utilizing bedside ultrasound, chest wall was evaluated for location for optimal chest tube placement. Location between the fifth and sixth ribs were marked on the skin using gentle pressure. The right sided chest wall was prepped with chlorhexidine and draped in the typical sterile fashion. 10 mL of 1% Lidocaine without epinephrine was used to anesthetize the skin down to the dorsal surface of the fifth rib. Fluid return confirmed entry into the pleural space. Lidocaine was injected into the pleural space for increased anesthetization. Introducer needle on syringe was inserted in perpendicular fashion taking care to ride just above the dorsal surface of the 6 rib. Entry into the pleural space was heralded by fluid return into the syringe while under gentle aspiration. G uide wire was advanced into the pleural space without resistance and the introducer needle was subsequently removed. Scalpel was used to make small incision of the superficial tissue, parallel to the direction of the rib anatomy. Dilator was advanced uneventfully over the guide wire into the pleural space. 14 Telugu Telugu Pigtail Catheter was inserted into the pleural space. Inner introducer and guide wire were removed. Drain was immediately connected to pre-prepared JASMINE pleur-evac system. Pigtail was sutured securely in place and sterile dressing was applied. Chest tube was placed to -20 cmH2O suction. Patient tolerated procedure well. I attempted a thoracentesis on the posterior chest wall and initially was able to aspirate yellow pleural fluid, but then on insertion of the thoracentesis catheter the patient began having coughing and pain. I withdrew the thoracentesis catheter and evaluated the pleural space with the ultrasound. I was unable to find the pleural fluid at that point. I had the patient lay back on the bed and then we inserted a pigtail catheter in the right lateral hemithorax with aspiration of 650 mL of fluid and air. She has a small air leak present. We will leave the chest tube to wall suction at -20 cm H2O. Pleural fluid studies were sent for culture, chemistries and cytology. Blood Loss: Minimal Complications: None Post procedure Chest X-ray was ordered and reviewed by myself which demonstrated adequate placement. Coding CPT Codes Pulmonary/Thoracic - Pulmonary and Thoracic: 44576 Thoracentesis w imaging ([id number]) Pulmonary/Thoracic - Pulmonary and Thoracic: 21783 Pleural drainage w/imaging ([id number]) [facility] Procedure Codes (Charges) Pulmonary/Thoracic Procedure 1: Pulmonary and Thoracic: 29455 Thoracentesis w imaging Procedure 2: Pulmonary and Thoracic: 63091 Pleural drainage w/imaging
[2019-06-09 15:07] LABS: Appearance Pleural Fluid HAZY; Color Pleural Fluid AMBER; RBC Pleural Fluid (A) 8000 /uL; Source Pleural Fluid RIGHT LUNG; WBC Pleural Fluid (A) 2562 /uL
[2019-06-09 15:26] LABS: Total Protein Pleural Fluid 3.8 g/dl
--- NOTE | 2019-06-09 15:26 | Pulmonary Consultation ---
Date of Consultation June 09, 2019 Assessment & Plan (1) Pleural effusion on right: Patient with developing pleural effusion on the right In the setting of pneumonia this could be a parapneumonic effusion versus empyema Chest x-ray reviewed personally and patient would be appropriate for evaluation for thoracentesis I requested INR and APTT Will proceed with thoracentesis if the patient consents to Dr. Garcia and a good fluid pocket is discovered. (2) Right lower lobe pneumonia: No sputum culture Throat culture negative Patient does have what appears to be pneumonia on her admission imaging. Continue with doxycycline and ceftriaxone Productive sputum with cough has decreased Patient states that she is oxygenating much better and currently is in the mid 90s on room air Pneumonia type: due to unspecified organism Qualified Code(s): J18.9 - Pneumonia, unspecified organism (3) DVT prophylaxis: Okay to continue with heparin 5000 units twice daily Thank you for including us in the care of this patient. We will continue to follow along with you Please refer to Dr. Garcia's addendum for further recommendations Supervising Physician Co-Signing Physician Notes Patient seen and examined with Jah Dale PA-C. I agree with his assessment and plan aside for any additions/exceptions noted: I performed a thoracentesis today and inadvertently a pneumothorax developed. We placed a right-sided pigtail that is 14 Serbian in size. A total of 700 mL of fluid was aspirated with the thoracentesis and chest tube prior to be exiting the room. There was a very minimal air leak noted. Repeat chest x-ray demonstrates reexpansion of the lung with no significant pneumothorax and significant treatment in the effusion. We are awaiting chemistries and cultures from the pleural fluid. The fluid did appear turbid and may be union contract representative of a parapneumonic effusion especially in light of her recovering pneumonia. Depending on the pleural fluid pH and glucose, we may elect to perform a mist protocol. Otherwise, if there is no significant complicated parapneumonic effusion or empyema, we will likely clamp the chest tube tomorrow and remove the chest tube once the air leak has resolved. History of Present Illness Attending Physician: Matt Gil MD History of Present Illness Attending: Dr. Garcia This is an 83-year-old female that was admitted on 06/02/2019 with pneumonia. She is currently being treated with doxycycline and ceftriaxone. She was found to have a developing pleural effusion on the right. We are consulted to evaluate for possible thoracentesis. Coags were checked in the patient is optimized for procedure. A thoracentesis will be attempted later today. Patient states that she has minimal shortness of breath. She has a cough which is now nonproductive. On admission she did have sputum but no culture was obtained. A throat culture was negative for strept. She has minimal pain. She denies any recent fever or chills. She has no pleuritic type pain. She denies any precordial pain. She is unaware of any previous pleural effusion and does not think that she is ever had a thoracentesis in the past. She has no other acute complaints. Past medical history includes diabetes type 2, hyperlipidemia, chronic kidney disease stage III, GERD, hypothyroidism cerebrovascular disease, and osteoporosis. The patient is a former smoker but states that she quit greater than 20 years ago. She has no ethanol abuse history. Allergies Allergy/AdvReac Type Severity Reaction Status Date / Time rosuvastatin Allergy Intermediate GI SYMPTOMS Verified 06/02/19 15:42 Sulfa (Sulfonamide Allergy Unknown . Verified 06/02/19 15:42 Antibiotics) simvastatin AdvReac Unknown MUSCLE Verified 06/02/19 15:42 WEAKNESS Home Medications Home Medications Medication Instructions Recorded Confirmed Type albuterol sulfate 2 puff INHALATION QID PRN 06/02/19 06/02/19 History albuterol sulfate 2.5 mg INHALATION DIRECTED PRN 06/02/19 06/02/19 History amlodipine 5 mg PO QAM 06/02/19 06/02/19 History aspirin 162 mg PO QAM 06/02/19 06/02/19 History cholecalciferol (vitamin D3) 50,000 unit PO WK 06/02/19 06/02/19 History gabapentin 300 mg PO HS 06/02/19 06/02/19 History levothyroxine 137 mcg PO QAM 06/02/19 06/02/19 History omeprazole 20 mg PO QAM 06/02/19 06/02/19 History oxycodone-acetaminophen 0.5 tab PO Q8H PRN 06/02/19 06/02/19 History Patient History Medical History Cerebrovascular disease CKD (chronic kidney disease), stage III (Chronic) CVA (cerebral vascular accident) (Chronic) Diabetes mellitus type 2, controlled DM type 2 (diabetes mellitus, type 2) (Chronic) Dyslipidemia (Chronic) GERD (gastroesophageal reflux disease) (Chronic) Hypothyroidism (Chronic) Neuropathy (Chronic) Osteoporosis (Chronic) Surgical History H/O umbilical hernia repair (Chronic) History of appendectomy (Chronic) History of cataract surgery (Chronic) History of cholecystectomy (Chronic) History of spinal surgery (Chronic) "x 2 " Status post total hip replacement, left (Chronic) Family History Other Family history non-contributory Social History Preferred Language: Mohawk Communication Ability: Effective Baggage Inspector Required: No Beliefs That Will Affect Care: None marital status: Current Living Situation: Family Current Living Situation Comment: Lives with Son and Son's Feels Safe at Home: Yes Safety Concerns: Feels Safe At This Time Smoking Status: Former smoker Tobacco Type: cigarettes ; Do You Dip or Chew Tobacco: No ; Smoking End Date: 22 years ago ; Second Hand Exposure: No ; Hx Alcohol Use: No Hx Substance Use: No Review of Systems Review of Systems: All systems reviewed & are unremarkable except as noted in HPI & below Physical Exam Physical Exam: Patient seen and examined at bedside GENERAL : No acute distress EYES: No icterus, gaze conjugate NOSE: No evidence of epistaxis MOUTH: No lesions or candidiasis NECK: Supple LUNGS: Fine rales at the bases. Decreased breath sounds on the right. No appreciation of significant bronchospasm. HEART: Regular, rate controlled in the 80s ABDOMEN: Soft, NT, ND, BS Present EXTREMITIES: No LE edema, pedal pulses intact NEURO: A&OX3 Results & Data ([facility]) Vital Signs (Past 12 Hours) Vital Signs Temp Pulse Resp BP Pulse Ox 06/09/19 14:30 36.4 C L 118 H 18 112/53 L 94 06/09/19 11:30 95 H 20 92 06/09/19 07:30 37 C 85 18 134/69 94 Laboratory Results 06/08/19 06:26 06/08/19 06:26 INR 1.1 (0.9-1.1) 06/09/19 10:53 Diagnostic Findings XR chest 2V PA/lateral HISTORY: f/u pneumonia COMPARISON: Chest 06/02/2019. FINDINGS: Small moderate right pleural effusion has progressed.. Right middle and lower lobe airspace opacity has progressed. The heart is normal in size. There is a small patchy right midlung zone airspace opacity. No pneumothorax. A few linear densities at the left lung base are again noted and may represent atelectasis. IMPRESSION: Interval progression of the right pleural effusion and right mid to lower lung zone airspace opacities. ACT 112: Negative or not required by law. Electronically signed by: Willy Murillo M.D. 06/07/2019 9:05 AM PG Care Time/CCT Total # of Minutes Spent Total Time Spent with Patient: Total time spent is greater than 50% in coordination of care (as documented) at patient's floor/unit and/or counseling patient: 45 minutes independent of procedures Coding Level of Care Code 94467 Inpt Consult Level 5 Diagnoses Pleural effusion on right J90 Right lower lobe pneumonia J18.9 Pneumonia type: due to unspecified organism DVT prophylaxis Z29.9 Time Spent (min) 70
[2019-06-09 15:47] LABS: Basophils, Fluid 0 %
[2019-06-09 15:48] LABS: Eosinophils, Fluid 3 %; Lymphocytes, Fluid 48 %; Mono,Macrophage,Mesothelial 7 %; Neutrophils, Fluid 42 %
[2019-06-09] MEDS: cefTRIAXone SODIUM 1,000 MG in DEXTROSE 5% 50 ML IV SCH (15:48)
--- NOTE | 2019-06-09 18:05 | XRay Report ---
XR chest 1V portable CLINICAL HISTORY: 83 years-old Female presenting with S/P pigtail catheter with Pneumothorax. TECHNIQUE: Portable upright AP view of the chest was obtained. COMPARISON: 06/09/2019 and 2:21 PM. FINDINGS: Atherosclerosis of the aortic arch. Cardiac silhouette borderline enlarged. Right pigtail pleural yunior in remains positioned at the right lung base. Minimal bibasilar opacities. No demonstrable right pneu mothorax allowing for portable technique. Multiple skin folds project over the right lung base. Trace effusions may be present. Degenerative changes of the shoulders and spine. Cholecystectomy clips not ed. IMPRESSION: 1. Right pigtail pleural drain at the right lung base. No evidence of pneumothorax. 2. Bibasilar atelectasis and possible trace pleural effusions. ACT 112: Negative or not required by law. Electronically signed by: Carlos Alberto Soto M.D. 06/09/2019 6:04 PM
[2019-06-09] MEDS: GABAPENTIN 300 MG CAP PO SCH (20:55)
--- NOTE | 2019-06-09 22:21 | Hospitalist Progress Note ---
Date of Service June 09, 2019 Assessment & Plan (1) Right lower lobe pneumonia: Presented with subjective fever, cough, SOB. TWISTER IN swab for influenza A/B negative. Chest x-ray showed RLL infiltrate. WBC 20,530 at time of admission. RLL pneumonia, community acquired. Receiving doxycycline and ceftriaxone with improvement. WBC down to 11,730. Still hypoxic. Continue supplemental O2. Repeat chest x-ray 06/06 showed increasing right pleural effusion. Probably has parapneumonic effusion; doubt empyema. Pulmonary Medicine consulted. (2) Cerebrovascular disease: Continue aspirin. (3) CKD (chronic kidney disease), stage III: Serum creatinine at time of admission 1.36, compared to baseline of 1.5. Creatinine 06/07 was 1.01. Follow. (4) Diabetes mellitus type 2, controlled: Diet-controlled. Hgb A1C 5.9. FBS today = 93. Insulin coverage as needed. (5) Hypothyroidism: Continue levothyroxine. (6) Weakness: Generalized weakness with poor functional status. PT/OT. (7) DVT prophylaxis: SQ heparin. Ambulate. (8) Discharge planning issues: To be determined. PT / OT evals demonstrate decreased functional capacity. Skilled care considered, but patient strongly prefers discharge to home. She feels that family will be available to offer her assistance 22/10. Case Management following. Family Medicine follow-up with Dr. Juanito Shane. Admission and Anticipated Discharge Date Admission Date: June 02, 2019 Subjective Recheck for pneumonia and other problems. Patient seen in their room around 1200. Better. No fever. Cough improved. Less SOB with exertion. No chest pain. No N/V. No diarrhea. Ambulating with PT. Hopes to be going home soon. Review of Systems: Constitutional- as noted above. Cardiac- no anginal pain. Pulmonary- as noted above. GI- as noted above. - no urinary symptoms. Otherwise, as noted above. Physical Exam Constitutional: no acute distress Respiratory: no respiratory distress Auscultation: + diminished lung sounds (right base) and + wheezes (mild); no rhonchi Cardiovascular: Rate/Rhythm: regular rate and regular rhythm Heart Sounds: no gallop Vessels: no JVD Extremities: no calf tenderness and no edema Gastrointestinal (Abdomen): normal bowel sounds, soft, nontender, no hepatosplenomegaly Musculoskeletal: Extremities: no cyanosis Skin: no rashes, warm and dry Psychiatric: Orientation: alert Results & Data ([facility]) Vital Signs (Past 12 Hours) Vital Signs Temp Pulse Resp BP Pulse Ox 06/09/19 15:39 36.8 C 86 18 124/76 93 06/09/19 14:30 36.4 C L 118 H 18 112/53 L 94 06/09/19 11:30 95 H 20 92 Laboratory Results 06/08/19 06:26 06/08/19 06:26 (1) Right lower lobe pneumonia Pneumonia type: due to unspecified organism Qualified Code(s): J18.9 - Pneumonia, unspecified organism
[2019-06-10] MEDS: OXYCODONE HCL IR 5 MG TAB (IMMEDIATE RELEASE) PO PRN ×4 (00:16→17:16)
[2019-06-10] MEDS: LEVOTHYROXINE SODIUM 137 MCG TABLET PO SCH (06:00)
--- NOTE | 2019-06-10 07:33 | XRay Report ---
XR chest 1V portable CLINICAL HISTORY: S/P pigtail catheter with right pneumothorax COMPARISON STUDY: 06/09/2019 FINDINGS: The heart is borderline enlarged. There is persistent soft tissue prominence the level of t he main pulmonary artery segment. There is a right basilar pleural pigtail catheter. There is no pneu mothorax. There is bilateral interstitial thickening. There is persistent atelectasis/consolidation t he right lung base.[ IMPRESSION: No significant change from the preceding study. No change in position of the right pleura l pigtail catheter. No pneumothorax identified ACT 112: Negative or not required by law. Electronically signed by: Brett Martínez M.D. 06/10/2019 7:31 AM
--- NOTE | 2019-06-10 08:24 | Pulmonology Progress Note ---
Date of Service June 10, 2019 Assessment & Plan (1) Pleural effusion on right: Pleural effusion identified yesterday which was suspected to be a parapneumonic secondary to patient's pneumonia Thoracentesis 06/09/[address] Garcia Patient developed a small pneumothorax at the right apex A 14 La[place] Cook pigtail catheter was placed successfully This morning there is no evidence of air leak and there is no evidence of pneumothorax on the chest x-ray Catheter is been changed to waterseal We will repeat chest x-ray at noon. If no pneumothorax, anticipate removal of pigtail catheter (2) Right lower lobe pneumonia: No sputum culture Throat culture negative Patient does have what appears to be pneumonia on her admission imaging. Continue with doxycycline and ceftriaxone Was oxygenating well on room air. Currently on 2 L/min via nasal cannula secondary to pneumothorax Will titrate supplemental O2 off this morning as tolerated Pneumonia type: due to unspecified organism Qualified Code(s): J18.9 - Pneumonia, unspecified organism (3) DVT prophylaxis: Okay to continue with heparin 5000 units twice daily Thank you for including us in the care of this patient. We will continue to follow along with you Supervising Physician Co-Signing Physician Notes Patient seen and examined with Jah Dale PA-C. Agree with A/P aside for any additions/exceptions noted: Post water seal trial small right apical ptx noted. No air leak noted. Flushed tube with 10cc of fluid with no air leak. Tube clamped and will repeat PA/lateral cxr 5pm. Pleural fluid studies exudative. Likely simple parapneumonic effusion from pna. No empyema. Subjective Attending: Dr. Garcia Patient seen and examined at bedside. She has chest tube in place and currently it is to waterseal. There is no appreciable air leak. Patient's oxygenation is adequate. She has no chest pain or tightness. Pain at the incision site for the chest tube insertion has resolved. Patient slept well last night. She has no acute complaints. She denies fever or chills. Review of Systems Review of Systems: All systems reviewed & are unremarkable except as noted in HPI & below Physical Exam Physical Exam: GENERAL : No acute distress EYES: No icterus, gaze conjugate NOSE: No evidence of epistaxis MOUTH: No lesions or candidiasis NECK: Supple LUNGS: Patient has breath sounds to bilateral bases. There is some faint crackling at the bilateral bases. She has no appreciable bronchospasm or rhonchi. 14 Lao pigtail catheter is secure. Dressing is dry and intact. HEART: Regular, rate controlled ABDOMEN: Soft, NT, ND, BS Present EXTREMITIES: No LE edema, pedal pulses intact NEURO: A&OX3 Results & Data ([facility]) Vital Signs (Past 12 Hours) Vital Signs Temp Pulse Resp BP Pulse Ox 06/10/19 07:15 36.6 C 79 18 149/80 H 99 06/09/19 23:03 36.8 C 84 18 123/75 97 Laboratory Results 06/08/19 06:26 06/08/19 06:26 Diagnostic Findings XR chest 1V portable CLINICAL HISTORY: S/P pigtail catheter with right pneumothorax COMPARISON STUDY: 06/09/2019 FINDINGS: The heart is borderline enlarged. There is persistent soft tissue prom inence the level of the main pulmonary artery segment. There is a right basilar pleural pigtail catheter. There is no pneumothorax. There is bilateral interstitial thickening. There is persistent atelectasis/consolidation the right lung base.[ IMPRESSION: No significant change from the preceding study. No change in position of the right pleural pigtail catheter. No pneumothorax identified Electronically signed by: Brett Martínez M.D. 06/10/2019 7:31 AM PG Care Time/CCT Total # of Minutes Spent Total Time Spent with Patient: Total time spent is greater than 50% in coordination of care (as documented) at patient's floor/unit and/or counseling patient: 20 minutes independent of any procedures. Coding Level of Care Code 69391 Subseq Hosp Care Lvl 2 Diagnoses Pleural effusion on right J90 Right lower lobe pneumonia J18.9 Pneumonia type: due to unspecified organism DVT prophylaxis Z29.9
[2019-06-10] MEDS: PANTOprazole 40 MG TAB PO SCH (08:36)
[2019-06-10] MEDS: DOCUSATE SODIUM/SENNA 50/8.6MG TAB PO SCH ×2 (08:37→20:56)
[2019-06-10] MEDS: ASPIRIN 81 MG ECTAB PO SCH (08:37)
[2019-06-10] MEDS: AMLODIPINE BESYLATE 5 MG TAB PO SCH (08:37)
[2019-06-10] MEDS: GABAPENTIN 100 MG CAP PO SCH (08:37)
[2019-06-10] MEDS: DOXYCYCLINE HYCLATE 100 MG CAP PO SCH ×2 (08:37→20:52)
[2019-06-10] MEDS: HEPARIN SOD 5,000 UNIT/0.5 ML VIAL SQ SCH ×2 (08:37→20:53)
[2019-06-10] MEDS: INSULIN ASPART 100 UNITS/ML 3 ML PEN SC SCH ×4 (08:38→20:53)
--- NOTE | 2019-06-10 09:15 | Hospitalist Progress Note ---
Date of Service June 10, 2019 Assessment & Plan (1) Right lower lobe pneumonia: Presented with subjective fever, cough, SOB. [employer] swab for influenza A/B negative. Chest x-ray showed RLL infiltrate. WBC 20,530 at time of admission. RLL pneumonia, community acquired. Receiving doxycycline and ceftriaxone with improvement. WBC down to 11,730. Still hypoxic. Continue supplemental O2. Repeat chest x-ray 06/06 showed increasing right pleural effusion. Probably has parapneumonic effusion; doubt empyema. Pulmonary Medicine consulted. Right thoracentesis performed on 06/09/2019 by Pulmonary Medicine. Pleural fluid: pH 7.37, gram stain- many WBC's, no bacteria Pl. effusion c/w exudative effusion, likely parapneumonic effusion; doubt empyema. Small pneumothorax noted and chest tube placed. Pulmonary following. Tube clamped, plan to repeat CXR. (2) Cerebrovascular disease: Continue aspirin. (3) CKD (chronic kidney disease), stage III: Serum creatinine at time of admission 1.36, compared to baseline of 1.5. Creatinine 06/07 was 1.01. Follow. (4) Diabetes mellitus type 2, controlled: Diet-controlled. Hgb A1C 5.9. Insulin coverage as needed. (5) Hypothyroidism: Continue levothyroxine. (6) Weakness: Generalized weakness with poor functional status. PT/OT. (7) DVT prophylaxis: SQ heparin. Ambulate. (8) Discharge planning issues: To be determined. PT / OT evals demonstrate decreased functional capacity. Skilled care considered, but patient strongly prefers discharge to home. She feels that family will be available to offer her assistance 22/10. Case Management following. Family Medicine follow-up with Dr. Juanito Shane. Admission and Anticipated Discharge Date Admission Date: June 02, 2019 Subjective Pt is lying in bed, in NAD. Denies any fever, chills, chest pain, abd. pain. Says she does not have much of an appetite. Also says her cough has much improved. Review of Systems Review of Systems: All systems reviewed & are unremarkable except as noted in HPI & below Constitutional: + fatigue; no fever and no chills Respiratory: + cough (improved) and + dyspnea (improved) Cardiovascular: no chest pain and no palpitations Gastrointestinal: no abdominal pain, no nausea and no vomiting Physical Exam Physical Exam: Constitutional: elderly female lying in bed, in no acute distress, on NC Respiratory: no respiratory distress Auscultation: + diminished lung sounds (right base) and + wheezes (mild); + faint crackles Cardiovascular: Rate/Rhythm: regular rate and regular rhythm Heart Sounds: no gallop Vessels: no JVD Extremities: no calf tenderness and no edema Gastrointestinal (Abdomen): normal bowel sounds, soft, nontender, nondistended Musculoskeletal: Extremities: trace LE edema b/l, moves extremities spontaneously Skin: venous stasis changes LE b/l, warm, dry Neuro: speech fluent, no facial asymmetry, moves extremities spontaneously Psychiatric: alert and oriented, euthymic effect Results & Data ([facility]) Vital Signs (Past 12 Hours) Vital Signs Temp Pulse Resp BP Pulse Ox 06/10/19 07:15 36.6 C 79 18 149/80 H 99 06/09/19 23:03 36.8 C 84 18 123/75 97 Laboratory Results 06/10/19 06/09/19 06/09/19 Range/Units 07:52 20:11 16:47 PT (9.0-12.0) Seconds INR (0.9-1.1) APTT (21.0-31.0) Seconds PTT Ratio POC Glucose 114 H 213 H 146 H (70-99) mg/dl Lactate Dehydrogenase (84-246) U/L Total Protein (6.4-8.2) gm/dl Procalcitonin (0-0.5) ng/ml Fluid Neutrophils % % Fluid Lymphocytes % % Fluid Eosinophils % % Fluid Basophils % % Fluid Meso/Macro/[place] % % Pleural Fluid Source Pleural Color Pleural Appearance Pleural pH (7.3-7.4) Pleural WBC /uL Pleural RBC /uL Pleural Other Cells Pleural Total Protein g/dl Pleural LDH U/L Pleural Glucose mg/dl Pleural Amylase U/L Pleural Cholesterol 06/09/19 06/09/19 06/09/19 Range/Units 14:48 14:20 14:20 PT (9.0-12.0) Seconds INR (0.9-1.1) APTT (21.0-31.0) Seconds PTT Ratio POC Glucose (70-99) mg/dl Lactate Dehydrogenase (84-246) U/L Total Protein 6.9 (6.4-8.2) gm/dl Procalcitonin (0-0.5) ng/ml Fluid Neutrophils % Cancelled % Fluid Lymphocytes % Cancelled % Fluid Eosinophils % Cancelled % Fluid Basophils % Cancelled % Fluid Meso/Macro/[place] % Cancelled % Pleural Fluid Source Cancelled Pleural Color Cancelled Pleural Appearance Cancelled Pleural pH 7.37 (7.3-7.4) Pleural WBC Cancelled /uL Pleural RBC Cancelled /uL Pleural Other Cells Cancelled Pleural Total Protein Cancelled g/dl Pleural LDH Cancelled U/L Pleural Glucose Cancelled mg/dl Pleural Amylase U/L Pleural Cholesterol 06/09/19 06/09/19 06/09/19 Range/Units 14:20 14:20 14:20 PT (9.0-12.0) Seconds INR (0.9-1.1) APTT (21.0-31.0) Seconds PTT Ratio POC Glucose (70-99) mg/dl Lactate Dehydrogenase (84-246) U/L Total Protein (6.4-8.2) gm/dl Procalcitonin (0-0.5) ng/ml Fluid Neutrophils % % Fluid Lymphocytes % % Fluid Eosinophils % % Fluid Basophils % % Fluid Meso/Macro/[place] % % Pleural Fluid Source Pleural Color Pleural Appearance Pleural pH 7.37 (7.3-7.4) Pleural WBC /uL Pleural RBC /uL Pleural Other Cells Pleural Total Protein 3.8 g/dl Pleural LDH 263 U/L Pleural Glucose 159 mg/dl Pleural Amylase 6 U/L Pleural Cholesterol Pending 06/09/19 06/09/19 06/09/19 Range/Units 14:20 12:09 10:53 PT (9.0-12.0) Seconds INR (0.9-1.1) APTT (21.0-31.0) Seconds PTT Ratio POC Glucose 124 H (70-99) mg/dl Lactate Dehydrogenase (84-246) U/L Total Protein (6.4-8.2) gm/dl Procalcitonin 0.26 (0-0.5) ng/ml Fluid Neutrophils % 42 % Fluid Lymphocytes % 48 % Fluid Eosinophils % 3 % Fluid Basophils % 0 % Fluid Meso/Macro/[place] % 7 % Pleural Fluid Source RIGHT LUNG Pleural Color [place] Pleural Appearance HAZY Pleural pH (7.3-7.4) Pleural WBC 2562 /uL Pleural RBC 8000 /uL Pleural Other Cells Pleural Total Protein g/dl Pleural LDH U/L Pleural Glucose mg/dl Pleural Amylase U/L Pleural Cholesterol 06/09/19 06/09/19 Range/Units 10:53 10:53 PT 11.3 (9.0-12.0) Seconds INR 1.1 (0.9-1.1) APTT 34.7 H (21.0-31.0) Seconds PTT Ratio 1.2 POC Glucose (70-99) mg/dl Lactate Dehydrogenase 192 (84-246) U/L Total Protein (6.4-8.2) gm/dl Procalcitonin (0-0.5) ng/ml Fluid Neutrophils % % Fluid Lymphocytes % % Fluid Eosinophils % % Fluid Basophils % % Fluid Meso/Macro/[place] % % Pleural Fluid Source Pleural Color Pleural Appearance Pleural pH (7.3-7.4) Pleural WBC /uL Pleural RBC /uL Pleural Other Cells Pleural Total Protein g/dl Pleural LDH U/L Pleural Glucose mg/dl Pleural Amylase U/L Pleural Cholesterol Medications Administered Current Inpatient Medications Al Hydrox/Mg Hydrox/Simethicone (Maalox Max) 30 ml PO Q6H PRN PRN Reason: Indigestion Stop: 07/05/19 18:08 Albuterol (Ventolin 0.083% 2.5mg/3ml) 2.5 mg INH UD PRN PRN Reason: Shortness Of Breath Or Wheezing Stop: 07/02/19 19:05 Last Admin: 06/03/19 17:14 Dose: 2.5 mg Documented by: Albuterol (Ventolin Hfa) 2 puffs INH QID PRN PRN Reason: Shortness Of Breath Or Wheezing Stop: 07/02/19 19:05 Amlodipine Besylate (Norvasc) 5 mg PO QAM [facility] Stop: 07/03/19 08:59 Last Admin: 06/10/19 08:37 Dose: 5 mg Documented by: Aspirin (Ecotrin Ectab) 162 mg PO QAM [facility] Stop: 07/03/19 08:59 Last Admin: 06/10/19 08:37 Dose: 162 mg Documented by: Dextrose (Dextrose 50%) 25 - 50 ml IV UD PRN; Protocol PRN Reason: Hypoglycemia Protocol Stop: 07/04/19 14:44 Doxycycline Hyclate (Vibramycin) 100 mg PO BID [facility] Stop: 06/11/19 20:59 Last Admin: 06/10/19 08:37 Dose: 100 mg Documented by: Ergocalciferol (Vitamin D2) 50,000 units PO Mo SHASHI Stop: 07/08/19 08:59 Last Admin: 06/08/19 09:22 Dose: 50,000 units Documented by: Gabapentin (Neurontin) 300 mg PO HS [facility] Stop: 07/02/19 20:59 Last Admin: 06/09/19 20:55 Dose: 300 mg Documented by: Gabapentin (Neurontin) 100 mg PO QAM SHASHI Stop: 07/07/19 13:14 Last Admin: 06/10/19 08:37 Dose: 100 mg Documented by: Glucagon (Glucagen) 1 mg IM UD PRN; Protocol PRN Reason: Hypoglycemia Protocol Stop: 07/04/19 14:44 Glucose (Glucose 40%) 15 - 30 gm PO UD PRN; Protocol PRN Reason: Hypoglycemia Protocol Stop: 07/04/19 14:44 Glucose (Dex4 Glucose) 4 - 8 tabs PO UD PRN; Protocol PRN Reason: Hypoglycemia Protocol Stop: 07/04/19 14:44 Heparin Sodium (Porcine) (Heparin Sodium (Porcine)) 5,000 units SQ Q12 SHASHI Stop: 07/02/19 20:59 Last Admin: 06/10/19 08:37 Dose: 5,000 units Documented by: Ceftriaxone Sodium 1,000 mg/ (Dextrose) 50 mls @ 100 mls/hr IV Q24H SHASHI; Protocol Stop: 06/10/19 15:59 Last Infusion: 06/09/19 16:18 Dose: Infused Documented by: Insulin Aspart (Novolog Flexpen) 0 units SC ACHS [facility] Stop: 07/02/19 20:59 Last Admin: 06/10/19 08:38 Dose: Not Given Documented by: Levothyroxine Sodium (Levothyroxine Sodium) 137 mcg PO DAILYBB [facility] Stop: 07/03/19 06:29 Last Admin: 06/10/19 06:00 Dose: 137 mcg Documented by: Miscellaneous (Carbohydrates For Hypoglycemia) 15 - 30 gm PO UD PRN PRN Reason: Hypoglycemia Treatment Stop: 07/04/19 14:44 Oxycodone HCl (Roxicodone Immediate Rel) 5 mg PO Q4H PRN PRN Reason: Pain Stop: 06/16/19 22:01 Last Admin: 03/11/20 05:57 Dose: 5 mg Documented by: Pantoprazole Sodium (Protonix) 40 mg PO QAM [facility]; Protocol Stop: 07/03/19 08:59 Last Admin: 06/10/19 08:36 Dose: 40 mg Documented by: Senna/Docusate Sodium (Senokot S) 1 tab PO BID [facility] Stop: 07/09/19 11:44 Last Admin: 06/10/19 08:37 Dose: 1 tab Documented by: (1) Right lower lobe pneumonia Pneumonia type: due to unspecified organism Qualified Code(s): J18.9 - Pneumonia, unspecified organism
--- NOTE | 2019-06-10 12:15 | XRay Report ---
XR chest 2V PA/lateral HISTORY: 83 years-old Female R/O right pneumothorax follow-up study in a patient with right-sided ch est tube COMPARISON: Chest radiograph of same day at 7:16 AM TECHNIQUE: Portable AP view of the chest FINDINGS: Cardiac silhouette is enlarged. Pulmonary vascular congestion. Bilateral interstitial coarsening has slightly worsened on the right. Small pleural effusions with bibasilar opacities. Unchanged positioni ng of the pigtail catheter of the lateral right lung base. Tiny right apical pneumothorax, pleural se paration of 9 mm. Calcified plaque the thoracic aortic arch. Degenerative changes of the shoulders an d spine. IMPRESSION: 1. Stable positioning of the right-sided pleural drainage catheter. 2. Tiny right apical pneumothorax.. ACT 112: Negative or not required by law. The above report was generated using voice recognition software. It may contain grammatical, syntax o r spelling errors. Electronically signed by: Marlon Guillen M.D. 06/10/2019 12:14 PM
--- NOTE | 2019-06-10 17:04 | XRay Report ---
XR chest 2V PA/lateral CLINICAL HISTORY: follow up ptx after 4 hour clamping Chest tube COMPARISON STUDY: 06/10/2019 11:56 AM FINDINGS: Right basilar chest drainage tube in unchanged position. Consolidative process within the r ight middle lobe is unchanged. Minimal, if any residual pneumothorax. IMPRESSION: Minimal if any residual pneumothorax. This is improved as compared to the prior study. ACT 112: Negative or not required by law. The above report was generated using voice recognition software. It may contain grammatical, syntax or spelling errors. Electronically signed by: Wally Alatorre M.D. 06/10/2019 5:03 PM
[2019-06-10] MEDS: GABAPENTIN 300 MG CAP PO SCH (20:52)
[2019-06-11 06:03] LABS: Hematocrit (blood only) 36.7 % (37-47); Hemoglobin 11.5 g/dL (12.0-16.0); Mean Corpuscular Hemoglobin 30.7 pg (25-34); Mean Corpuscular Hgb Conc 31.3 g/dL (32-36); Mean Corpuscular Volume 97.9 fL (80-100); Mean Platelet Volume 10.3 fL (7.4-10.4); Platelet Count 143 K/uL (130-400); RDW Coefficient of Variation 13.5 % (11.5-14.5); RDW Standard Deviation 47.7 fL (36.4-46.3); Red Blood Count 3.75 M/uL (4.2-5.4); White Blood Count 10.43 K/uL (4.8-10.8)
[2019-06-11] MEDS: LEVOTHYROXINE SODIUM 137 MCG TABLET PO SCH (06:17)
[2019-06-11 06:37] LABS: Creatinine Clr Calc Pharmacy 37.1 ml/min; Est GFR (Non-African American) 50.9; Magnesium 1.8 mg/dl (1.8-2.4); Phosphorus 3.3 mg/dl (2.5-4.9); Potassium 4.4 mmol/L (3.5-5.1)
[2019-06-11] MEDS: GABAPENTIN 100 MG CAP PO SCH (08:28)
[2019-06-11] MEDS: ASPIRIN 81 MG ECTAB PO SCH (08:28)
[2019-06-11] MEDS: PANTOprazole 40 MG TAB PO SCH (08:28)
[2019-06-11] MEDS: DOXYCYCLINE HYCLATE 100 MG CAP PO SCH (08:29)
[2019-06-11] MEDS: HEPARIN SOD 5,000 UNIT/0.5 ML VIAL SQ SCH ×2 (08:30→21:16)
[2019-06-11] MEDS: OXYCODONE HCL IR 5 MG TAB (IMMEDIATE RELEASE) PO PRN ×2 (08:33→22:41)
[2019-06-11] MEDS: DOCUSATE SODIUM/SENNA 50/8.6MG TAB PO SCH ×2 (08:36→21:49)
[2019-06-11] MEDS: INSULIN ASPART 100 UNITS/ML 3 ML PEN SC SCH ×4 (08:38→20:26)
[2019-06-11] MEDS: AMLODIPINE BESYLATE 5 MG TAB PO SCH (08:38)
[2019-06-11] MEDS ORDERED: IOVERSOL 100ml IV PRN (10:37)
--- NOTE | 2019-06-11 11:41 | CT Scan Report ---
CHEST CT WITH CONTRAST CT DOSE: 424.04 mGycm HISTORY: Right pleural effusion with malignant cytology pleural fluid with adenoca TECHNIQUE: Multiaxial CT images of the chest were performed following the IV administration of 94 cc of Optiray 320. A dose lowering technique was utilized adhering to the principles of ALARA. COMPARISON: Chest radiographs 06/10/2019, CT abdomen pelvis 07/30/2012 FINDINGS: No thyroid nodule identified. Moderate cardiomegaly. No pericardial effusion. Extensive coronary jamey ry calcifications. Extensive mixed plaque of the thoracic aorta. Patency of the imaged proximal great vessels. The visualized and opacified pulmonary artery appears patent. Pathologically enlarged supraclavicular lymph nodes measure up to 2.2 x 1.4 cm on the right. Patholog ically enlarged mediastinal and bilateral hilar lymph nodes are also present with conglomerate subcar inal adenopathy measuring up to 4.2 x 2.8 cm which appears to be confluence with pathologically enlar ged right hilar lymph nodes and abuts and partially effaces the adjacent mid thoracic esophagus. Path ologic AP window adenopathy measures up to 3.9 x 1.9 cm. There is a heterogeneous and lobular mass of the right middle lobe which is contiguous with the right hilum overall measuring approximately 8.2 x 5.5 x 7.4 cm encasing and narrowing the adjacent pulmonary vessels and bronchi. Notably there is lum inal contrast involving multiple bronchial branches within this distribution. Small right pleural eff usion with mild dependent right lung base consolidation suggestive of atelectasis. Small right-sided pneumothorax is redemonstrated, pleural separation of 4 mm anteriorly at the apex. Intralobular septa l thickening is noted throughout the right lung with moderate multifocal bronchial wall thickening. I ll-defined groundglass and bronchovascular distribution of micronodules are noted throughout the righ t lung, most pronounced in the right upper lobe. There is mild emphysema. No evidence of left-sided p ulmonary metastasis. Moderate tracheobronchial secretions. Absent left kidney. Extensive upper abdominal vascular calcifications. Cortical thinning of the right kidney with 5 mm superior pole nonobstructing calculus. Marginal nodularity of the liver is suggesti ve of cirrhotic liver disease. No definite upper abdominal metastasis. Mild nonspecific distal esopha geal wall thickening. Degenerative changes of the shoulders and spine. Likely degenerative related bi lateral glenohumeral joint effusions. Loose bodies are noted within the bilateral glenohumeral joints and left subscapularis recess. No definite evidence of osseous metastatic disease. IMPRESSION: 1. Heterogeneous large mass of the right middle lobe contiguous with the right hilum measures up to 8 .2 x 5.5 x 7.4 cm encasing and narrowing the adjacent pulmonary vessels and bronchi resulting in effa cement and occlusion of multiple right middle lobe subsegmental bronchi. This is compatible with bron chogenic neoplasm. 2. Extensive raul metastatic disease involves the supraclavicular distributions, multiple mediastina l stations and bilateral hilar distributions. 3. 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 4. Trace right apical pneumothorax persists. 5. Small right pleural effusion with mild right lung base atelectasis. 6. Emphysema. Tracheobronchial secretions with moderate right-sided bronchial wall thickening. ACT 112: Negative or not required by law. Electronically signed by: Marlon Guillen M.D. 06/11/2019 11:40 AM
--- NOTE | 2019-06-11 15:29 | Pulmonology Progress Note ---
Date of Service June 11, 2019 Assessment & Plan (1) Malignant pleural effusion: It appears that the pleural fluid is likely malignant. We were told that the preliminary studies indicate malignancy. I obtained a CT of her chest that demonstrated a right middle lobe mass and significant mediastinal adenopathy. This would indicate that she has stage IV disease given the malignant pleural effusion. She also has a residual small right apical pneumothorax. I did discuss the results with the patient and she was very tearful and indicated that she had a recent family member that from cancer. I try to get a hold of the patient's son but was unable to do so. I discussed the case personally with Dr. Rain Godoy who is the on-call palliative care physician. She noted that either she or La Nena Lucia will see the patient today or tomorrow. I do not think it would be unreasonable to at least have oncology's opinion on the case, but I suspect that the most likely best approach to her care at this point would be palliation of her symptoms and consideration of hospice given her underlying poor performance status. With regards to the pneumothorax, no follow-up or intervention is needed. (2) Metastatic cancer: (3) Acute hypoxemic respiratory failure: (4) Palliative care encounter: (5) Iatrogenic pneumothorax: Subjective Patient seen and examined today. She is lying in bed. She notes that she feels better than she did yesterday. I went over her diagnosis. I indicated to her that her pleural fluid studies appear malignant on preliminary testing. We did a CT of her chest that appears like she has a widely metastatic disease in her chest including a large right middle lobe mass and mediastinal adenopathy. Patient was very tearful when I told her that she has cancer. I tried calling her son Juanito, but I did not get any answer. I did discuss the case with the palliative care attending Dr. Miranda. Physical Exam Physical Exam: GENERAL : No acute distress EYES: No icterus, gaze conjugate NOSE: No evidence of epistaxis MOUTH: No lesions or candidiasis NECK: Supple LUNGS: Patient has breath sounds to bilateral bases. There is some faint crackling at the bilateral bases. She has no appreciable bronchospasm or rhonchi. HEART: Regular, rate controlled ABDOMEN: Soft, NT, ND, BS Present EXTREMITIES: No LE edema, pedal pulses intact NEURO: A&OX3 Results & Data ([facility]) Vital Signs (Past 12 Hours) Vital Signs Temp Pulse Pulse Resp BP Pulse Ox 06/11/19 15:18 98.2 F 74 18 117/67 97 06/11/19 11:41 90 06/11/19 11:40 76 L 06/11/19 07:14 98.1 F 72 18 113/69 96 PG Care Time/CCT Total # of Minutes Spent Total Time Spent with Patient: Total time spent is greater than 50% in coordination of care (as documented) at patient's floor/unit and/or counseling patient: Coding Level of Care Code 61983 Subseq Hosp Care Lvl 3 Diagnoses Malignant pleural effusion J91.0 Metastatic cancer C79.9 Acute hypoxemic respiratory failure J96.01 Palliative care encounter Z51.5 Iatrogenic pneumothorax J95.811
--- NOTE | 2019-06-11 16:25 | Palliative Care Progress Note ---
Date of Service June 11, 2019 Subjective Patient seen, chart reviewed. Collaborated with Dr. Garcia Patient is an 83-year-old female admitted on 06/01 for right lower lobe pneumonia- was found to have a pleural effusion. Patient underwent thoracentesis with removal of 700 cc with postprocedure small pneumothorax. Preliminary findings on fluid is positive for malignancy. Patient had a CT scan that showed a right middle lobe mass with increased adenopathy. Patient lives with her son, [id number] and adult granddaughter in [facility]. Dr. Garcia has not yet been able to contact patient's son regarding results. Patient tearful initially on exam, was able to engage in conversation. Patient wishes to speak with her son before making any further decisions. We will plan to see patient in a.m. Results & Data Vital Signs (Past 12 Hours) Vital Signs Temp Pulse Pulse Resp BP Pulse Ox 06/11/19 15:18 98.2 F 74 18 117/67 97 06/11/19 11:41 90 06/11/19 11:40 76 L 06/11/19 07:14 98.1 F 72 18 113/69 96 PG Care Time/CCT Total # of Minutes Spent Total Time Spent with Patient: Total time spent is greater than 50% in coordination of care (as documented) at patient's floor/unit and/or counseling patient: Coding Level of Care Code None
--- NOTE | 2019-06-11 16:28 | Hospitalist Progress Note ---
Date of Service June 11, 2019 Assessment & Plan (1) Right lower lobe pneumonia: Malignant pl. effusion Pt presented with subjective fever, cough, SOB. [employer] swab for influenza A/B negative. Chest x-ray showed RLL infiltrate. WBC 20,530 at time of admission. RLL pneumonia, community acquired. Receiving doxycycline and ceftriaxone with improvement. WBC down to 11,730. Still hypoxic. Continue supplemental O2. Repeat chest x-ray 06/06 showed increasing right pleural effusion. Probably has parapneumonic effusion; doubt empyema. Pulmonary Medicine consulted. Right thoracentesis performed on 06/09/2019 by Pulmonary Medicine. Pleural fluid: pH 7.37, gram stain- many WBC's, no bacteria Pl. effusion seems c/w exudative effusion, likely parapneumonic effusion. Small pneumothorax noted and chest tube placed. Pulmonary following. Chest tube taken out (06/09), pt improved clinically. Pl. effusion preliminary results c/w malignancy - 06/10 CT chest obtained by pulmonary medicine showed R middle lobe mass and mediastinal adenopathy Palliative medicine consulted. (2) Cerebrovascular disease: Continue aspirin. (3) CKD (chronic kidney disease), stage III: Serum creatinine at time of admission 1.36, compared to baseline of 1.5. Creatinine 06/10 ~1 Follow. (4) Diabetes mellitus type 2, controlled: Diet-controlled. Hgb A1C 5.9. Insulin coverage as needed. (5) Hypothyroidism: Continue levothyroxine. (6) Weakness: Generalized weakness with poor functional status. PT/OT. (7) DVT prophylaxis: SQ heparin. Ambulate. (8) Discharge planning issues: To be determined. PT / OT evals demonstrate decreased functional capacity. Skilled care considered, but patient strongly prefers discharge to home. She feels that family will be available to offer her assistance 22/10. Case Management following. Now new diagnosis of poss. malignancy. palliative following. Family Medicine follow-up with Dr. Juanito Shane. Admission and Anticipated Discharge Date Admission Date: June 02, 2019 Subjective Notified by pulmonary medicine that pt's pl. effusion is likely malignant. Chest tube was removed yesterday and pt has been doing well. Pulmonary obtained CT this AM, which confirmed R middle lobe mass and mediastinal adenopathy, concerni ng for malignancy. These preliminary results were discussed with the pt and also palliative medicine. Dr. Miranda was able to see the pt this afternoon. Pt is teary and understandably sad about the new diagnosis. She is otherwise lying in bed, in no respiratory distress. Denies any fever, chills, chest pain, abd. pain, nausea or vomiting. Still has poor appetite. Cough is improved. Review of Systems Review of Systems: All systems reviewed & are unremarkable except as noted in HPI & below Constitutional: + fatigue; no fever and no chills Respiratory: + cough (improved) and + dyspnea (improved) Cardiovascular: no chest pain and no palpitations Gastrointestinal: no abdominal pain, no nausea and no vomiting Physical Exam Physical Exam: Constitutional: elderly female lying in bed, in no acute respiratory distress, on NC, teary about new diagnosis Respiratory: no respiratory distress Auscultation: clear to auscultation except for + faint crackles R>L Cardiovascular: Rate/Rhythm: regular rate and regular rhythm Heart Sounds: no gallop Vessels: no JVD Extremities: no calf tenderness and no edema Gastrointestinal (Abdomen): normal bowel sounds, soft, nontender, nondistended Musculoskeletal: Extremities: trace LE edema b/l, moves extremities spontaneous ly Skin: venous stasis changes LE b/l, warm, dry Neuro: speech fluent, no facial asymmetry, moves extremities spontaneously Psychiatric: alert and oriented x3, depressed (d/t new diagnosis of malignancy) Results & Data ([facility]) Vital Signs (Past 12 Hours) Vital Signs Temp Pulse Pulse Resp BP Pulse Ox 06/11/19 15:18 36.8 C 74 18 117/67 97 06/11/19 11:41 90 06/11/19 11:40 76 L 06/11/19 07:14 36.7 C 72 18 113/69 96 Laboratory Results 06/11/19 06/11/19 06/11/19 Range/Units 16:24 11:47 07:48 WBC (4.8-10.8) K/uL RBC (4.2-5.4) M/uL Hgb (12.0-16.0) g/dL Hct (37-47) % MCV (80-100) fL MCH (25-34) pg MCHC (32-36) g/dL RDW Std Deviation (36.4-46.3) fL RDW Coeff of Jaden (11.5-14.5) % Plt Count (130-400) K/uL MPV (7.4-10.4) fL Sodium (136-145) mmol/L Potassium (3.5-5.1) mmol/L Chloride (98-107) mmol/L Carbon Dioxide (21-32) mmol/L Anion Gap (3-11) BUN (7-18) mg/dl Creatinine (0.6-1.2) mg/dl Est Cr Clr Drug Dosing ml/min Est GFR ( Amer) Est GFR (Non-Af Amer) BUN/Creatinine Ratio (10-20) Glucose (70-99) mg/dl POC Glucose 108 H 97 92 (70-99) mg/dl Calcium (8.5-10.1) mg/dl Phosphorus (2.5-4.9) mg/dl Magnesium (1.8-2.4) mg/dl 06/11/19 06/11/19 06/10/19 Range/Units 05:52 05:52 20:07 WBC 10.43 (4.8-10.8) K/uL RBC 3.75 L (4.2-5.4) M/uL Hgb 11.5 L (12.0-16.0) g/dL Hct 36.7 L (37-47) % MCV 97.9 (80-100) fL MCH 30.7 (25-34) pg MCHC 31.3 L (32-36) g/dL RDW Std Deviation 47.7 H (36.4-46.3) fL RDW Coeff of Jaden 13.5 (11.5-14.5) % Plt Count 143 (130-400) K/uL MPV 10.3 (7.4-10.4) fL Sodium 140 (136-145) mmol/L Potassium 4.4 (3.5-5.1) mmol/L Chloride 107 (98-107) mmol/L Carbon Dioxide 30 (21-32) mmol/L Anion Gap 3.0 (3-11) BUN 24 H (7-18) mg/dl Creatinine 1.03 (0.6-1.2) mg/dl Est Cr Clr Drug Dosing 37.1 ml/min Est GFR ( Amer) 59.0 Est GFR (Non-Af Amer) 50.9 BUN/Creatinine Ratio 23.0 H (10-20) Glucose 95 (70-99) mg/dl POC Glucose 110 H (70-99) mg/dl Calcium 10.0 (8.5-10.1) mg/dl Phosphorus 3.3 (2.5-4.9) mg/dl Magnesium 1.8 (1.8-2.4) mg/dl 06/10/19 Range/Units 16:44 WBC (4.8-10.8) K/uL RBC (4.2-5.4) M/uL Hgb (12.0-16.0) g/dL Hct (37-47) % MCV (80-100) fL MCH (25-34) pg MCHC (32-36) g/dL RDW Std Deviation (36.4-46.3) fL RDW Coeff of Jaden (11.5-14.5) % Plt Count (130-400) K/uL MPV (7.4-10.4) fL Sodium (136-145) mmol/L Potassium (3.5-5.1) mmol/L Chloride (98-107) mmol/L Carbon Dioxide (21-32) mmol/L Anion Gap (3-11) BUN (7-18) mg/dl Creatinine (0.6-1.2) mg/dl Est Cr Clr Drug Dosing ml/min Est GFR ( Amer) Est GFR (Non-Af Amer) BUN/Creatinine Ratio (10-20) Glucose (70-99) mg/dl POC Glucose 111 H (70-99) mg/dl Calcium (8.5-10.1) mg/dl Phosphorus (2.5-4.9) mg/dl Magnesium (1.8-2.4) mg/dl Medications Administered Current Inpatient Medications Al Hydrox/Mg Hydrox/Simethicone (Maalox Max) 30 ml PO Q6H PRN PRN Reason: Indigestion Stop: 07/05/19 18:08 Albuterol (Ventolin 0.083% 2.5mg/3ml) 2.5 mg INH UD PRN PRN Reason: Shortness Of Breath Or Wheezing Stop: 07/02/19 19:05 Last Admin: 06/03/19 17:14 Dose: 2.5 mg Documented by: Albuterol (Ventolin Hfa) 2 puffs INH QID PRN PRN Reason: Shortness Of Breath Or Wheezing Stop: 07/02/19 19:05 Amlodipine Besylate (Norvasc) 5 mg PO QAM [facility] Stop: 07/03/19 08:59 Last Admin: 06/11/19 08:38 Dose: 5 mg Documented by: Aspirin (Ecotrin Ectab) 162 mg PO QAM [facility] Stop: 07/03/19 08:59 Last Admin: 06/11/19 08:28 Dose: 162 mg Documented by: Dextrose (Dextrose 50%) 25 - 50 ml IV UD PRN; Protocol PRN Reason: Hypoglycemia Protocol Stop: 07/04/19 14:44 Doxycycline Hyclate (Vibramycin) 100 mg PO BID [facility] Stop: 06/11/19 20:59 Last Admin: 06/11/19 08:29 Dose: 100 mg Documented by: Ergocalciferol (Vitamin D2) 50,000 units PO Mo [facility] Stop: 07/08/19 08:59 Last Admin: 06/08/19 09:22 Dose: 50,000 units Documented by: Gabapentin (Neurontin) 300 mg PO HS [facility] Stop: 07/02/19 20:59 Last Admin: 06/10/19 20:52 Dose: 300 mg Documented by: Gabapentin (Neurontin) 100 mg PO QAM [facility] Stop: 07/07/19 13:14 Last Admin: 06/11/19 08:28 Dose: 100 mg Documented by: Glucagon (Glucagen) 1 mg IM UD PRN; Protocol PRN Reason: Hypoglycemia Protocol Stop: 07/04/19 14:44 Glucose (Glucose 40%) 15 - 30 gm PO UD PRN; Protocol PRN Reason: Hypoglycemia Protocol Stop: 07/04/19 14:44 Glucose (Dex4 Glucose) 4 - 8 tabs PO UD PRN; Protocol PRN Reason: Hypoglycemia Protocol Stop: 07/04/19 14:44 Heparin Sodium (Porcine) (Heparin Sodium (Porcine)) 5,000 units SQ Q12 [facility] Stop: 07/02/19 20:59 Last Admin: 06/11/19 08:30 Dose: 5,000 units Documented by: Insulin Aspart (Novolog Flexpen) 0 units SC ACHS [facility] Stop: 07/02/19 20:59 Last Admin: 06/11/19 12:31 Dose: Not Given Documented by: Ioversol (Optiray 320 100ml) 94 ml IV ONCE PRN PRN Reason: Interaction Checking Stop: 06/15/19 10:36 Last Admin: 06/11/19 10:37 Dose: 94 ml Documented by: Levothyroxine Sodium (Levothyroxine Sodium) 137 mcg PO DAILYBB [facility] Stop: 07/03/19 06:29 Last Admin: 06/11/19 06:17 Dose: 137 mcg Documented by: Miscellaneous (Carbohydrates For Hypoglycemia) 15 - 30 gm PO UD PRN PRN Reason: Hypoglycemia Treatment Stop: 07/04/19 14:44 Oxycodone HCl (Roxicodone Immediate Rel) 5 mg PO Q4H PRN PRN Reason: Pain Stop: 06/16/19 22:01 Last Admin: 06/11/19 08:33 Dose: 5 mg Documented by: Pantoprazole Sodium (Protonix) 40 mg PO QAM [facility]; Protocol Stop: 07/03/19 08:59 Last Admin: 06/11/19 08:28 Dose: 40 mg Documented by: Senna/Docusate Sodium (Senokot S) 1 tab PO BID [facility] Stop: 07/09/19 11:44 Last Admin: 06/11/19 08:36 Dose: Not Given Documented by: (1) Right lower lobe pneumonia Pneumonia type: due to unspecified organism Qualified Code(s): J18.9 - Pneumonia, unspecified organism
[2019-06-11] MEDS: GABAPENTIN 300 MG CAP PO SCH (21:16)
[2019-06-12] MEDS: LEVOTHYROXINE SODIUM 137 MCG TABLET PO SCH (06:25)
[2019-06-12 07:15] LABS: Calcium 10.3 mg/dl (8.5-10.1); Creatinine Clr Calc Pharmacy 36.4 ml/min; Est GFR (African American) 57.7; Est GFR (Non-African American) 49.8; Potassium 4.1 mmol/L (3.5-5.1)
[2019-06-12] MEDS: ASPIRIN 81 MG ECTAB PO SCH (07:42)
[2019-06-12] MEDS: GABAPENTIN 100 MG CAP PO SCH (07:42)
[2019-06-12] MEDS: PANTOprazole 40 MG TAB PO SCH (07:43)
[2019-06-12] MEDS: AMLODIPINE BESYLATE 5 MG TAB PO SCH (07:43)
[2019-06-12] MEDS: HEPARIN SOD 5,000 UNIT/0.5 ML VIAL SQ SCH ×2 (07:43→20:09)
[2019-06-12] MEDS: DOCUSATE SODIUM/SENNA 50/8.6MG TAB PO SCH ×2 (07:45→20:09)
[2019-06-12] MEDS: OXYCODONE HCL IR 5 MG TAB (IMMEDIATE RELEASE) PO PRN ×3 (07:48→20:09)
[2019-06-12] MEDS: INSULIN ASPART 100 UNITS/ML 3 ML PEN SC SCH ×4 (09:45→21:01)
--- NOTE | 2019-06-12 10:08 | Hospitalist Progress Note ---
Date of Service June 12, 2019 Assessment & Plan (1) Right lower lobe pneumonia: Malignant pl. effusion Pt presented with subjective fever, cough, SOB. [employer] swab for influenza A/B negative. Chest x-ray showed RLL infiltrate. WBC 20,530 at time of admission. RLL pneumonia, community acquired. Receiving doxycycline and ceftriaxone with improvement. WBC down to 11,730. Still hypoxic. Continue supplemental O2. Repeat chest x-ray 06/06 showed increasing right pleural effusion. Probably has parapneumonic effusion; doubt empyema. Pulmonary Medicine consulted. Right thoracentesis performed on 06/09/2019 by Pulmonary Medicine. Pleural fluid: pH 7.37, gram stain- many WBC's, no bacteria Pl. effusion seems c/w exudative effusion, likely parapneumonic effusion. Small pneumothorax noted and chest tube placed. Pulmonary following. Chest tube taken out (06/09), pt improved clinically. Pl. effusion preliminary results c/w malignancy - 06/10 CT chest obtained by pulmonary medicine showed R middle lobe mass and mediastinal adenopathy - likely c/w with stage IV lung ca, final results pending Palliative medicine consulted. Palliative and pulmonary medicine met with the pt and family today (06/11), discussed options of outpt heme/onc evaluation and also poss. home hospice. Pt does not wish to go through heme/onc evaluation and treatment, wishes to go home with hospice tomorrow. Discussed this with the pt later today (06/11) and she confirms this decision with me as well. (2) Cerebrovascular disease: Continue aspirin. (3) CKD (chronic kidney disease), stage III: Serum creatinine at time of admission 1.36, compared to baseline of 1.5. Creatinine 06/10 ~1 Follow. (4) Diabetes mellitus type 2, controlled: Diet-controlled. Hgb A1C 5.9. Insulin coverage as needed. (5) Hypothyroidism: Continue levothyroxine. (6) Weakness: Generalized weakness with poor functional status. PT/OT. (7) DVT prophylaxis: SQ heparin. Ambulate. (8) Discharge planning issues: To be determined. PT / OT evals demonstrate decreased functional capacity. Skilled care considered, but patient strongly prefers discharge to home. She feels that family will be available to offer her assistance 22/10. Case Management following. Now new diagnosis of poss. malignancy. palliative following. Pt decided to go home with hospice. Family Medicine follow-up with Dr. Juanito Shane. Admission and Anticipated Discharge Date Admission Date: June 02, 2019 Subjective Discussed with the pt and family yesterday about pl. effusion preliminary results showing malignancy. CT chest was also obtained by pulmonary, likely stage IV lung ca (confirmed R middle lobe mass and mediastinal adenopathy) Palliative medicine and pulmonary medicine met with the pt and family today to further discuss. Pt declined eval by heme/onc and wished to go home tomorrow with home hospice. Chest tube was removed and pt is otherwise doing well, no new or worsening respiratory issues. Denies any fever, chills, chest pain, abd. pain, nausea or vomiting. Appetite is poor. Cough is improved. Review of Systems Review of Systems: All systems reviewed & are unremarkable except as noted in HPI & below Constitutional: + fatigue; no fever and no chills Respiratory: + cough (improved) and + dyspnea (improved) Cardiovascular: no chest pain and no palpitations Gastrointestinal: no abdominal pain, no nausea and no vomiting Physical Exam Physical Exam: Constitutional: elderly female lying in bed, in no acute respiratory distress, on NC, teary about new diagnosis Respiratory: no respiratory distress Auscultation: clear to auscultation except for + faint crackles R>L Cardiovascular: Rate/Rhythm: regular rate and regular rhythm Heart Sounds: no gallop Vessels: no JVD Extremities: no calf tenderness and no edema Gastrointestinal (Abdomen): normal bowel sounds, soft, nontender, nondistended Musculoskeletal: Extremities: trace LE edema b/l, moves extremities spontaneously Skin: venous stasis changes LE b/l, warm, dry Neuro: speech fluent, no facial asymmetry, moves extremities spontaneously Psychiatric: alert and oriented x3, depressed (d/t new diagnosis of malignancy) Results & Data ([facility]) Vital Signs (Past 12 Hours) Vital Signs Temp Pulse Resp BP Pulse Ox 06/12/19 07:45 36.6 C 78 18 125/68 97 06/11/19 23:17 36.7 C 82 16 130/68 92 Laboratory Results reviewed Medications Administered Current Inpatient Medications Al Hydrox/Mg Hydrox/Simethicone (Maalox Max) 30 ml PO Q6H PRN PRN Reason: Indigestion Stop: 07/05/19 18:08 Albuterol (Ventolin 0.083% 2.5mg/3ml) 2.5 mg INH UD PRN PRN Reason: Shortness Of Breath Or Wheezing Stop: 07/02/19 19:05 Last Admin: 06/03/19 17:14 Dose: 2.5 mg Documented by: Albuterol (Ventolin Hfa) 2 puffs INH QID PRN PRN Reason: Shortness Of Breath Or Wheezing Stop: 07/02/19 19:05 Amlodipine Besylate (Norvasc) 5 mg PO QAM [facility] Stop: 07/03/19 08:59 Last Admin: 06/12/19 07:43 Dose: 5 mg Documented by: Aspirin (Ecotrin Ectab) 162 mg PO QAM [facility] Stop: 07/03/19 08:59 Last Admin: 06/12/19 07:42 Dose: 162 mg Documented by: Dextrose (Dextrose 50%) 25 - 50 ml IV UD PRN; Protocol PRN Reason: Hypoglycemia Protocol Stop: 07/04/19 14:44 Ergocalciferol (Vitamin D2) 50,000 units PO Mo [facility] Stop: 07/08/19 08:59 Last Admin: 06/08/19 09:22 Dose: 50,000 units Documented by: Gabapentin (Neurontin) 300 mg PO HS [facility] Stop: 07/02/19 20:59 Last Admin: 06/12/19 20:09 Dose: 300 mg Documented by: Gabapentin (Neurontin) 100 mg PO QAM [facility] Stop: 07/07/19 13:14 Last Admin: 06/12/19 07:42 Dose: 100 mg Documented by: Glucagon (Glucagen) 1 mg IM UD PRN; Protocol PRN Reason: Hypoglycemia Protocol Stop: 07/04/19 14:44 Glucose (Glucose 40%) 15 - 30 gm PO UD PRN; Protocol PRN Reason: Hypoglycemia Protocol Stop: 07/04/19 14:44 Glucose (Dex4 Glucose) 4 - 8 tabs PO UD PRN; Protocol PRN Reason: Hypoglycemia Protocol Stop: 07/04/19 14:44 Heparin Sodium (Porcine) (Heparin Sodium (Porcine)) 5,000 units SQ Q12 [facility] Stop: 07/02/19 20:59 Last Admin: 06/12/19 20:09 Dose: 5,000 units Documented by: Insulin Aspart (Novolog Flexpen) 0 units SC ACHS [facility] Stop: 07/02/19 20:59 Last Admin: 06/12/19 21:01 Dose: Not Given Documented by: Ioversol (Optiray 320 100ml) 94 ml IV ONCE PRN PRN Reason: Interaction Checking Stop: 06/15/19 10:36 Last Admin: 06/11/19 10:37 Dose: 94 ml Documented by: Levothyroxine Sodium (Levothyroxine Sodium) 137 mcg PO DAILYBB [facility] Stop: 07/03/19 06:29 Last Admin: 06/13/19 05:45 Dose: 137 mcg Documented by: Miscellaneous (Carbohydrates For Hypoglycemia) 15 - 30 gm PO UD PRN PRN Reason: Hypoglycemia Treatment Stop: 07/04/19 14:44 Oxycodone HCl (Roxicodone Immediate Rel) 5 mg PO Q4H PRN PRN Reason: Pain Stop: 06/16/19 22:01 Last Admin: 06/12/19 20:09 Dose: 5 mg Documented by: Pantoprazole Sodium (Protonix) 40 mg PO QAM [facility]; Protocol Stop: 07/03/19 08:59 Last Admin: 06/12/19 07:43 Dose: 40 mg Documented by: Senna/Docusate Sodium (Senokot S) 1 tab PO BID [facility] Stop: 07/09/19 11:44 Last Admin: 06/12/19 20:09 Dose: Not Given Documented by: (1) Right lower lobe pneumonia Pneumonia type: due to unspecified organism Qualified Code(s): J18.9 - P neumonia, unspecified organism
--- NOTE | 2019-06-12 10:34 | Pulmonology Progress Note ---
Date of Service June 12, 2019 Assessment & Plan (1) Malignant pleural effusion: Patient with malignant effusion. Final path pending. Likely stage 4 lung cancer. Recommend hospice care. Palliative on board. Not unreasonable to get outpatient opinion from oncology with PET staging if family and patient desires. Likely would not change prognosis. If effusion recurs in future, we can re-tap. Would favor avoiding pleurx at this point. (2) Metastatic cancer: (3) Acute hypoxemic respiratory failure: (4) Palliative care encounter: (5) Iatrogenic pneumothorax: Subjective Patient laying in bed. Son and daughter in law. NAD. No acute events overnight. No chest pain or fevers. Physical Exam Physical Exam: GENERAL : No acute distress EYES: No icterus, gaze conjugate NOSE: No evidence of epistaxis MOUTH: No lesions or candidiasis NECK: Supple LUNGS: Patient has breath sounds to bilateral bases. There is some faint crackling at the bilateral bases. She has no appreciable bronchospasm or rhonchi. HEART: Regular, rate controlled ABDOMEN: Soft, NT, ND, BS Present EXTREMITIES: No LE edema, pedal pulses intact NEURO: A&OX3 Results & Data ([facility]) Vital Signs (Past 12 Hours) Vital Signs Temp Pulse Resp BP Pulse Ox 06/12/19 07:45 97.9 F 78 18 125/68 97 06/11/19 23:17 98.1 F 82 16 130/68 92 PG Care Time/CCT Total # of Minutes Spent Total Time Spent with Patient: Total time spent is greater than 50% in coordination of care (as documented) at patient's floor/unit and/or counseling patient: Coding Level of Care Code 01760 Subseq Hosp Care Lvl 3 Diagnoses Malignant pleural effusion J91.0 Metastatic cancer C79.9 Acute hypoxemic respiratory failure J96.01 Palliative care encounter Z51.5 Iatrogenic pneumothorax J95.811
--- NOTE | 2019-06-12 12:23 | Palliative Care Consultation ---
Date of Consultation June 12, 2019 Assessment & Plan (1) Goals of care, counseling/discussion: -83 year old female patient with PMH cerebrovascular disease, CVA, CKD, DM, dyslipidemia, GERD, osteoporosis and others, presented to the hospital with c/o increased cough, SOB and weakness. Patient has had URI for several weeks at home, thought she was getting better then got worse. She was found to have RLL pneumonia on admission and was placed on abx. Patient then developed a worsening right sided pleural effusion. Pulmonology was consulted on 06/08 for possible thoracentesis which was performed. Preliminary report from pathology apparently showed malignant cells in the pleural fluid. CT of the chest was then performed yesterday 06/10 which showed a RML lesion and mediastinal lymphadenopathy-- suggestive of metastatic lung cancer. Final pathology pending of course. At baseline, patient is overweight and has a marginal performance status. She was not on oxygen prior to hospitalization but is now requiring 2LNC. Palliative care is consulted to discuss goals of care. -Met with patient, her son Juanito, [id number] Radha, and Dr. Garcia, in room 456. Patient is AA&O x4, very pleasant and denies any complaints at this time of pain or SOB. Does still have a cough. -Patient and family are now aware of the malignant pleural effusion and high likelihood of stage IV lung cancer. We presented the options: heme/oncology consult and learn about options for chemotherapy, etc. vs. focusing on comfort, quality of life and symptom management with hospice care. -Patient states that her main goal is just to be at home and be comfortable. She is not interested in chemotherapy or aggressive measures. She declines following up with a heme/onc physician. Family is supportive and agree that they would like to take her home. -Patient lives with Juanito and Radha. Patient is currently able to ambulate short distances with walker and keeps a phone at her bedside at all times. Son and DIL work, but they are all comfortable with patient going home. We will provide a private duty caregiver list. Has a hospital bed already. Will need home oxygen-- case management and hospice aware. -Patient/family want discharge home tomorrow. Hospitalist updated. -Discussed code status: patient is DNR/DNI. Family in agreement. -No symptom management needs at this time. PPS 40%. (2) Malignant pleural effusion: (3) Acute hypoxemic respiratory failure: (4) Weakness: Supervising Physician Co-Signing Physician Notes Chart reviewed, patient seen and examined. No family at bedside during my visit. Collaborated with SABRINA Branch PE: Patient awake alert, no acute distress HEENT: EOMI, mild CREEK Respiratory: Unlabored CV: Regular rate Abdomen: Soft nontender Neuro: Alert and oriented x4 Agree with above note, assessment and plan as per SABRINA Branch. Plan is for discharge home with hospice care. History of Present Illness Attending Physician: Naif Patricio MD History of Present Illness This 83 year old female patient with PMH cerebrovascular disease, CVA, CKD, DM, dyslipidemia, GERD, osteoporosis and others, presented to the hospital with c/o increased cough, SOB and weakness. Patient has had URI for several weeks at home, thought she was getting better then got worse. She was found to have RLL pneumonia on admission and was placed on abx. Patient then developed a worsening right sided pleural effusion. Pulmonology was consulted on 06/08 for possible thoracentesis which was performed. Preliminary report from pathology apparently showed malignant cells in the pleural fluid. CT of the chest was then performed yesterday 06/10 which showed a RML lesion and mediastinal lymphadenopathy-- suggestive of metastatic lung cancer. Final pathology pending of course. At baseline, patient is overweight and has a marginal performance status. She was not on oxygen prior to hospitalization but is now requiring 2LNC. Palliative care is consulted to discuss goals of care. Thank you kindly for this consult. Palliative care team will follow as needed. Allergies Allergy/AdvReac Type Severity Reaction Status Date / Time rosuvastatin Allergy Intermediate GI SYMPTOMS Verified 06/02/19 15:42 Sulfa (Sulfonamide Allergy Unknown . Verified 06/02/19 15:42 Antibiotics) simvastatin AdvReac Unknown MUSCLE Verified 06/02/19 15:42 WEAKNESS Home Medications Home Medications Medication Instructions Recorded Confirmed Type albuterol sulfate 2 puff INHALATION QID PRN 06/02/19 06/02/19 History albuterol sulfate 2.5 mg INHALATION DIRECTED PRN 06/02/19 06/02/19 History amlodipine 5 mg PO QAM 06/02/19 06/02/19 History aspirin 162 mg PO QAM 06/02/19 06/02/19 History cholecalciferol (vitamin D3) 50,000 unit PO WK 06/02/19 06/02/19 History gabapentin 300 mg PO HS 06/02/19 06/02/19 History levothyroxine 137 mcg PO QAM 06/02/19 06/02/19 History omeprazole 20 mg PO QAM 06/02/19 06/02/19 History oxycodone-acetaminophen 0.5 tab PO Q8H PRN 06/02/19 06/02/19 History Patient History Medical History (Updated 06/12/19 @ 12:21 by SABRINA Meyers) Acute hypoxemic respiratory failure Cerebrovascular disease CKD (chronic kidney disease), stage III (Chronic) CVA (cerebral vascular accident) (Chronic) Diabetes mellitus type 2, controlled DM type 2 (diabetes mellitus, type 2) (Chronic) Dyslipidemia (Chronic) GERD (gastroesophageal reflux disease) (Chronic) Hypothyroidism (Chronic) Iatrogenic pneumothorax Malignant pleural effusion Metastatic cancer Neuropathy (Chronic) Osteoporosis (Chronic) Palliative care encounter Surgical History H/O umbilical hernia repair (Chronic) History of appendectomy (Chronic) History of cataract surgery (Chronic) History of cholecystectomy (Chronic) History of spinal surgery (Chronic) "x 2 " Status post total hip replacement, left (Chronic) Family History Other Family history non-contributory Social History Preferred Language: Syriac Communication Ability: Effective 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 Beliefs That Will Affect Care: None marital status: Current Living Situation: Family Current Living Situation Comment: Lives with Son and Son's Feels Safe at Home: Yes Safety Concerns: Feels Safe At This Time Smoking Status: Former smoker Tobacco Type: cigarettes ; Do You Dip or Chew Tobacco: No ; Smoking End Date: 22 years ago ; Second Hand Exposure: No ; Hx Alcohol Use: No Hx Substance Use: No Review of Systems Constitutional: no weakness (resolved) Ear, Nose, Mouth, Throat: no dysphagia Respiratory: + cough, + chest congestion, + dyspnea on exertion and + sputum production Cardiovascular: no chest pain and no edema Gastrointestinal: no abdominal pain, no nausea and no vomiting Musculoskeletal: no pain Neurologic: no confusion Psychiatric: no depression and no anxiety Physical Exam Constitutional: + obese and comfortable; no acute distress ENMT: external ear and nose normal, oropharynx normal Respiratory: normal respiratory effort; no respiratory distress Cardiovascular: RRR, no murmur, no edema Gastrointestinal (Abdomen): Percussion/Palpation: abdomen soft; abdomen nontender Neurologic: moves all extremities and awake; not confused Psychiatric: A+Ox3, euthymic affect Results & Data Vital Signs (Past 12 Hours) Vital Signs Temp Pulse Resp BP Pulse Ox 06/12/19 07:45 36.6 C 78 18 125/68 97 PG Care Time/CCT Total # of Minutes Spent Total Time Spent with Patient: Total time spent is greater than 50% in coordination of care (as documented) at patient's floor/unit and/or counseling patient:70 minutes. Coding Level of Care Code 40322 Inpt Consult Level 3 Diagnoses Goals of care, counseling/discussion Z71.89 Malignant pleural effusion J91.0 Acute hypoxemic respiratory failure J96.01 Weakness R53.1 Time Spent (min) 70
[2019-06-12] MEDS: GABAPENTIN 300 MG CAP PO SCH (20:09)
[2019-06-13] MEDS: LEVOTHYROXINE SODIUM 137 MCG TABLET PO SCH (05:45)
[2019-06-13] MEDS: AMLODIPINE BESYLATE 5 MG TAB PO SCH (08:52)
[2019-06-13] MEDS: GABAPENTIN 100 MG CAP PO SCH (08:52)
[2019-06-13] MEDS: ASPIRIN 81 MG ECTAB PO SCH (08:52)
[2019-06-13] MEDS: PANTOprazole 40 MG TAB PO SCH (08:52)
[2019-06-13] MEDS: DOCUSATE SODIUM/SENNA 50/8.6MG TAB PO SCH (08:53)
[2019-06-13] MEDS: INSULIN ASPART 100 UNITS/ML 3 ML PEN SC SCH ×2 (09:05→12:00)
[2019-06-13] MEDS: HEPARIN SOD 5,000 UNIT/0.5 ML VIAL SQ SCH (09:05)
[2019-06-13] MEDS: OXYCODONE HCL IR 5 MG TAB (IMMEDIATE RELEASE) PO PRN (11:12)
--- NOTE | 2019-06-13 11:46 | Discharge Summary ---
Date of Service June 13, 2019 Admission HPI Per Admitting Provider She is 83-year-old female significant past medical history of diabetes type 2, hyperlipidemia, chronic kidney disease stage III, GERD, hypothyroidism and osteoporosis apparently has been complaining of increasing shortness of breath, cough with productive of phlegm and feeling of hot and cold since Saturday last. The condition got worse as of this morning and she was brought into emergency room for further evaluation. She has had URI symptoms about 2 weeks ago and was given a course of prednisone and azithromycin which she finished Saturday last. She denies any chest pain and/or palpitation, denies any abdominal pain nausea and or vomiting, no problem with urine and her bowel habit and denies any numbness and/or tingling involving any of the extremities. She noticed to have more weakness and tiredness and dizziness but no falls. She was noted to have a high white count of 20,000 and the chest x-ray did show right basilar infiltrate from that point she was admitted to medical floor for continuation of care. Admission Exam Per Admitting Provider Physical Exam: Lying in bed with minimal distress due to shortness of breath and cough Constitutional: + acute distress (Moderate cough and shortness of breath), + ill appearing and + thin Eyes: PERRL, conjunctivae normal, anicteric sclerae ENMT: external ear and nose normal, oropharynx normal Neck: trachea midline, no thyromegaly Respiratory: normal respiratory effort and + respiratory distress (Minimal distress at rest) Auscultation: + diminished lung sounds and + crackles (Mostly in the right base) Cardiovascular: Rate/Rhythm: regular rate and regular rhythm Heart Sounds: no murmur Gastrointestinal (Abdomen): Inspection/Auscultation: abdomen normal to inspection Percussion/Palpation: + abdomen tender (Mildly tender) and abdomen soft; no guarding and abdomen not rigid Musculoskeletal: No acute arthritis involving any joints Neurologic: moves all extremities; no focal motor deficits Lymphatic: no cervical or axillary lymphadenopathy Principal Diagnosis R lower lobe pna Malignant pleural effusion, likely stage IV lung cancer (final pathology results pending) Discharge Exam Constitutional: elderly female lying in bed, in no acute respiratory distress, on NC, teary about new diagnosis Respiratory: no respiratory distress Auscultation: clear to auscultation except for + faint crackles R>L Cardiovascular: Rate/Rhythm: regular rate and regular rhythm Heart Sounds: no gallop Vessels: no JVD Extremities: no calf tenderness and no edema Gastrointestinal (Abdomen): normal bowel sounds, soft, nontender, nondistended Musculoskeletal: Extremities: trace LE edema b/l, moves extremities spontaneously Skin: venous stasis changes LE b/l, warm, dry Neuro: speech fluent, no facial asymmetry, moves extremities spontaneously Psychiatric: alert and oriented x3, depressed (d/t new diagnosis of malignancy) Discharge Data Allergies Allergy/AdvReac Type Severity Reaction Status Date / Time rosuvastatin Allergy Intermediate GI SYMPTOMS Verified 06/02/19 15:42 Sulfa (Sulfonamide Allergy Unknown . Verified 06/02/19 15:42 Antibiotics) simvastatin AdvReac Unknown MUSCLE Verified 06/02/19 15:42 WEAKNESS Consultations 06/02/19 17:21 ED Decision to Admit Stat 06/09/19 10:24 Consult Pulmonology Routine 06/11/19 15:22 Consult Palliative Care Routine Ordered Studies 06/02/19 22:02 US venous doppler LE BI Urgent 06/09/19 13:10 US point of care ultrasound Routine 06/11/19 09:30 CT chest w con Urgent IMPRESSION: 1. Heterogeneous large mass of the right middle lobe contiguous with the right hilum measures up to 8.2 x 5.5 x 7.4 cm encasing and narrowing the adjacent pulmonary vessels and bronchi resulting in effacement and occlusion of multiple right middle lobe subsegmental bronchi. This is compatible with bronchogenic neoplasm. 2. Extensive raul metastatic disease involves the supraclavicular distributions, multiple mediastinal stations and bilateral hilar distributions. 3. Intralobular septal thickening throughout the right lung with bronchovascular distribution of scattered micronodules may reflect lymphangitic carcinomatosis with asymmetric pulmonary edema/postobstructive pneumonitis also in the differential. 4. Trace right apical pneumothorax persists. 5. Small right pleural effusion with mild right lung base atelectasis. 6. Emphysema. Tracheobronchial secretions with moderate right-sided bronchial wall thickening. Hospital Course (1) Right lower lobe pneumonia: Malignant pl. effusion Pt initially presented with subjective fever, cough, SOB. 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 Chest x-ray showed RLL infiltrate. WBC 20,530 at time of admission. RLL pneumonia, community acquired. Receiving doxycycline and ceftriaxone with improvement. WBC down to 11,730. Still hypoxic. Continue supplemental O2. Repeat chest x-ray 06/06 showed increasing right pleural effusion. Pulmonary Medicine consulted. Right thoracentesis performed on 06/09/2019 by Pulmonary Medicine. Pleural fluid: pH 7.37, gram stain- many WBC's, no bacteria Pl. effusion seemed c/w exudative effusion, likely parapneumonic effusion. Small pneumothorax noted and chest tube placed. Pulmonary following. Chest tube taken out (06/09), pt improved clinically. Pl. effusion prelim. results c/w malignancy - 06/10 CT chest obtained by pulmonary medicine showed R middle lobe mass and mediastinal adenopathy - likely c/w with stage IV lung adenocarcinoma, final results pending Palliative medicine consulted. Palliative and pulmonary medicine met with the pt and family (06/11), discussed options of outpt heme/onc evaluation and also poss. home hospice. Pt does not wish to go through heme/onc evaluation and treatment, wishes to go home with hospice Pt to be discharged today (06/12) with home hospice. (2) Cerebrovascular disease: Continue aspirin. (3) CKD (chronic kidney disease), stage III: Serum creatinine at time of admission 1.36, compared to baseline of 1.5. Creatinine 06/10 ~1 (4) Diabetes mellitus type 2, controlled: Diet-controlled. Hgb A1C 5.9. Insulin coverage as needed. (5) Hypothyroidism: Continue levothyroxine. (6) Weakness: Generalized weakness with poor functional status. PT/OT. (7) Discharge planning issues: PT / OT evals demonstrate decreased functional capacity. Skilled care considered, but patient strongly prefers discharge to home. She feels that family will be available to offer her assistance 22/10. Case Management following. Now new diagnosis of poss. malignancy. palliative following. Pt decided to go home with hospice. Family Medicine follow-up with Dr. Juanito Shane. Total Time Total Time Spent Total Time Spent (In Minutes): 35 Total Time Includes: Examination of the Patient, Discharge Planning, Medication Reconciliation and Communication With Other Providers Discharge Plan Discharge Items Patient Disposition: Hospice - Home Reason For Visit: RIGHT LOWER LOBE PNEUMONIA Discharge Diagnosis: R lower lobe pna Malignant pleural effusion, likely stage IV lung cancer (final pathology results pending) Activity: As commented below Non-emergency contact: Primary Care Provider and Specialist Call non-emergency contact if: you have any medication questions and your symptoms worsen Follow-up/Referrals: Juanito Shane, [Primary Care Provider] - 06/19/19 10:55 am () Diet: Carb Consistent or DM2 and Heart Healthy Addtl Attending Provider Instructions: The final cytology results from your pleural effusion fluid are still pending. Feel free to call your primary care doctor and/ or follow up with your primary care doctor regarding these results. As discussed with palliative medicine, you can follow up with oncologist (cancer doctor) to learn more about your final diagnosis and treatment options (once final results are available). If you change your mind and would like to discuss your final diagnosis and possible treatment options with oncologist, your primary care doctor can refer you to one. Home hospice has been arranged for you by our case management. Pending Studies at Discharge: Yes Studies:: Pleural fluid cytology Stand-Alone Forms: [facility] Medications and DC Order Prescriptions: Continued levothyroxine 137 mcg tablet 137 mcg PO QAM RF: 0 albuterol sulfate 2.5 mg /3 mL (0.083 %) solution for nebulization 2.5 mg inhalation DIRECTED PRN (Reason: Shortness Of Breath Or Wheezing) RF: 0 amlodipine 5 mg tablet 5 mg PO QAM RF: 0 aspirin 81 mg Tablet,Delayed Release (Dr/Ec) 162 mg PO QAM RF: 0 gabapentin 300 mg capsule 300 mg PO HS RF: 0 omeprazole 20 mg capsule,delayed release(DR/EC) 20 mg PO QAM RF: 0 albuterol sulfate 90 mcg/actuation HFA aerosol inhaler 2 puff inhalation QID PRN (Reason: Shortness Of Breath Or Wheezing) RF: 0 cholecalciferol (vitamin D3) 1,250 mcg (50,000 unit) capsule 50,000 unit PO WK RF: 0 oxycodone-acetaminophen 5-325 mg tablet 0.5 tab PO Q8H PRN (Reason: Pain) RF: 0 Discharge Orders: Discharge Order (Routine); Ordered 06/13/19 Ordered By: Naif Patricio Admission Data Admit Date/Time: 06/02/19 17:35 Attending Provider: Naif Patricio Admit Provider: Uzma Spears Primary Care Provider: Juanito Shane Other Providers: Les Garcia ; Rain Miranda Other Interventions: Discharge Summary Assessment (RN) Last Done: 06/13/19 13:18 DC Date/Time DO NOT enter until pt leaves facility: 06/13/19 13:30
== END 2019-06-13 13:30 | disposition hospice, home (50) | DRG 193 ==
LOC: ED 12:36 → 4W 17:35 → SUATTDRO 17:35 → 4W 18:20